=== PATIENT | female | born 1980 | race American Indian/Alaskan Native ===

== ENCOUNTER 2017-03-15 14:21 | Inpatient (IN) | payer MEDICAID ==
[2017-03-15] MEDS ORDERED: Sodium Chloride 0.9% 1,000 ML IV STA (14:46)
[2017-03-15 14:59] LABS: VENOUS BLOOD GAS BASE EXCESS 0.7 mmol/L (0.0-2.0); VENOUS BLOOD GAS PCO2 40 mmHg (40-60); VENOUS BLOOD PH 7.41 (7.32-7.43)
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
[2017-03-15 15:22] LABS: BASO # 0.1 K/uL (0.0-0.2); BASO % 1.2 % (0.0-2.0); EOS # 0.2 K/uL (0.0-0.7); EOS % 2.4 % (0.0-4.0); HEMATOCRIT 39.1 % (34.0-47.0); LYMPH # 2.9 K/uL (1.0-4.3); LYMPH % 30.1 % (20.0-40.0); MEAN CELL VOLUME 74.5 fl (81.0-99.0); MEAN CORPUSCULAR HEMOGLOBIN 23.8 pg (27.0-31.0); MEAN PLATELET VOLUME 10.1 fl (7.2-11.7); MONO # 0.6 K/uL (0.0-0.8); MONO % 6.2 % (0.0-10.0); NEUT # 5.8 K/uL (1.8-7.0); NEUT % 60.1 % (50.0-75.0); NRBC % 0.1 % (0.0-0.0); RED CELL DISTRIBUTION WIDTH 15.5 % (11.5-14.5); WHITE BLOOD COUNT 9.7 K/uL (4.8-10.8)
[2017-03-15 15:33] LABS: ALB/GLOB RATIO 1.5 (1.0-2.1); ALCOHOL SERUM < 10 mg/dl (0-10); ALKALINE PHOSPHATASE 68 U/L (38-126); ALT/SGPT 33 U/L (9-52); AST/SGOT 19 U/L (14-36); BILIRUBIN,TOTAL 0.7 mg/dl (0.2-1.3); BLOOD UREA NITROGEN 10 mg/dl (7-17); CALCIUM 9.3 mg/dL (8.4-10.2); CARBON DIOXIDE 23 mmol/L (22-30); CHLORIDE 106 mmol/L (98-107); GFR AFRICAN-AMERICAN > 60; GLUCOSE,RANDOM 154 mg/dL (65-105); SODIUM 142 mmol/l (132-148); TOTAL PROTEIN 7.4 G/DL (6.3-8.2)
--- NOTE | 2017-03-15 15:36 | CT ---
PROCEDURE: CT brain 03/15/2017. HISTORY: r/o ICH COMPARISON: None available. TECHNIQUE: Axial computed tomography images were obtained through the head/brain without intravenous contrast. Radiation dose: Total exam DLP = 1313.31 mGy-cm. This CT exam was performed using one or more of the following dose reduction techniques: Automated exposure control, adjustment of the mA and/or kV according to patient size, and/or use of iterative reconstruction technique. FINDINGS: HEMORRHAGE: No acute parenchymal, subarachnoid or extra-axial hemorrhage. BRAIN: No evidence of large acute infarct. No focal areas of abnormal attenuation seen within the substance of the brain. Ventricular and sulcal size are within range of normal this patient's stated age. VENTRICLES: No evidence of obstructive hydrocephalus. CALVARIUM: There are no acute calvarial fractures. PARANASAL SINUSES: Mild mucosal thickening right maxillary sinus with minimal mucosal thickening few ethmoid air cells and right chamber sphenoid sinus. MASTOID AIR CELLS: Unremarkable as visualized. No inflammatory changes. OTHER FINDINGS: None. IMPRESSION: No acute intracranial hemorrhage.
[2017-03-15 15:40] LABS: POTASSIUM 3.6 MMOL/L (3.6-5.0)
--- NOTE | 2017-03-15 15:50 | RAD ---
HISTORY: SOB COMPARISON: No prior. FINDINGS: LUNGS: Poor inspiration with low lung volumes, crowded bronchovascular markings and mild bibasilar atelectasis. PLEURA: No significant pleural effusion identified, no pneumothorax apparent. CARDIOVASCULAR: Heart size appears upper limits of normal in size. OSSEOUS STRUCTURES: No significant abnormalities. VISUALIZED UPPER ABDOMEN: Normal. OTHER FINDINGS: None. IMPRESSION: Poor inspiration with low lung volumes, crowded bronchovascular markings and mild bibasilar atelectasis.
[2017-03-15 16:12] LABS: THYROID STIMULATING HORMONE 1.94 mIU/ML (0.46-4.68)
[2017-03-15] MEDS ORDERED: Labetalol 5 mg/ml Inj 20ML IVP STA (16:43)
[2017-03-15] MEDS ORDERED: Sodium Chloride 0.45% 1,000 ML IV SCH (17:45)
[2017-03-15] MEDS ORDERED: NIFEdipine 60 mg ER Tab PO STA (18:51)
[2017-03-16] MEDS: Pneumococcal 23-Valent Vaccine IM ONE ×2 (01:17→01:21)
[2017-03-16 07:36] LABS: ALB/GLOB RATIO 1.4 (1.0-2.1); ALKALINE PHOSPHATASE 64 U/L (38-126); ALT/SGPT 27 U/L (9-52); AST/SGOT 16 U/L (14-36); BILIRUBIN,TOTAL 0.5 mg/dl (0.2-1.3); BLOOD UREA NITROGEN 8 mg/dl (7-17); CALCIUM 9.2 mg/dL (8.4-10.2); CARBON DIOXIDE 24 mmol/L (22-30); CHLORIDE 105 mmol/L (98-107); CHOLESTEROL 158 mg/dL (0-199); GFR AFRICAN-AMERICAN > 60; GLUCOSE,RANDOM 172 mg/dL (65-105); POTASSIUM 3.5 MMOL/L (3.6-5.0); SODIUM 139 mmol/l (132-148); TOTAL PROTEIN 6.7 G/DL (6.3-8.2)
[2017-03-16 08:04] LABS: THYROID STIMULATING HORMONE 1.85 mIU/ML (0.46-4.68)
[2017-03-16] MEDS ORDERED: NIFEdipine 90 mg ER Tab PO SCH ×2 (09:00)
[2017-03-16] MEDS ORDERED: NIFEdipine 60 mg ER Tab PO SCH (09:00)
--- NOTE | 2017-03-16 17:09 | CARD ---
APPROVED REPORT EXAM: Two-dimensional and M-mode echocardiogram with Doppler and color Doppler. Other Information Quality : AverageRhythm : NSR Technically limited study due to body habitus. INDICATION Hypertension/HCVD 2D DIMENSIONS IVSd1.11 (0.7-1.1cm)LVDd5.04 (3.9-5.9cm) LVOT Diameter2.12 (1.8-2.4cm)PWd1.20 (0.7-1.1cm) IVSs1.88 (0.8-1.2cm)LVDs3.56 (2.5-4.0cm) FS (%) 29.5 %PWs1.72 (0.8-1.2cm) LVEF (%)55.0 (>50%) M-Mode DIMENSIONS Left Atrium (MM)4.31 (2.5-4.0cm)IVSd2.03 (0.7-1.1cm) Aortic Root2.94 (2.2-3.7cm)LVDd4.63 (4.0-5.6cm) Aortic Cusp Exc.2.06 (1.5-2.0cm)PWd1.69 (0.7-1.1cm) IVSs2.38 cmFS (%) 41 % LVDs2.75 (2.0-3.8cm)PWs2.41 cm Mitral Valve MV E Wppfonxc98.5cm/sMV DECEL [id number] A Fmcttprn86.6cm/s MV CXC50xgH/A ratio1.2MVA (PHT)2.36cm2 TDI Lateral E' Peak V8.80cm/sMedial E' Peak V5.95cm/sE/Lateral E'6.4 E/Medial E'9.5 Pulmonary Valve PV Peak Nsvsyuyp963.6cm/s LEFT VENTRICLE The left ventricle is normal size. There is mild concentric left ventricular hypertrophy. The left ventricular function is normal. The left ventricular ejection fraction is within the normal range. There is normal LV segmental wall motion. The left ventricular diastolic function is normal. RIGHT VENTRICLE The right ventricle is normal size. There is normal right ventricular wall thickness. The right ventricular systolic function is normal. ATRIA The left atrium is borderline dilated. The right atrium size is normal. AORTIC VALVE The aortic valve is not well visualized. No aortic regurgitation is present. There is no aortic valvular stenosis. MITRAL VALVE The mitral valve is mildly thickened. There is no mitral valve stenosis. There is no mitral valve regurgitation noted. TRICUSPID VALVE The tricuspid valve is normal in structure and function. There is no tricuspid valve regurgitation noted. PULMONIC VALVE The pulmonary valve is normal in structure and function. There is no pulmonic valvular regurgitation. GREAT VESSELS The aortic root is normal in size. The IVC was not visualized. PERICARDIAL EFFUSION The pericardium appears normal. <Conclusion> The left ventricle is normal size. There is mild concentric left ventricular hypertrophy. The left ventricular function is normal. The left ventricular ejection fraction is within the normal range. There is normal LV segmental wall motion. The left ventricular diastolic function is normal.
--- NOTE | 2017-03-16 21:11 | CARD ---
APPROVED REPORT EKG Measurement Heart [id number] <Conclusion> Normal sinus rhythm Biatrial enlargement Left ventricular hypertrophy Nonspecific T wave abnormality Prolonged QT Abnormal ECG
[2017-03-16] MEDS ORDERED: Potassium Chloride 20 mEq ER Tab PO ONE (21:26)
[2017-03-17 00:17] VITALS: RESP 18; O2SAT 97
--- NOTE | 2017-03-17 06:25 | HP ---
HISTORY OF PRESENT ILLNESS: This is a 36-year-old female with no significant past medical history, presented to emergency room on the day of admission with complaints of dizziness, headache and generalized weakness. The patient was evaluated in the emergency room and she was found to have elevated blood pressure in the range of 180/110. The patient was being given multiple anti-hypertensive medications in the emergency room and she also had a CAT scan of the head that did not reveal any significant abnormality. The patient is a poor historian and stated she currently lives [place] and she recently moved from [place]. PAST MEDICAL HISTORY: None significant. FAMILY HISTORY: Noncontributory. SOCIAL HISTORY: The patient is a smoker but denies ETOH or substance abuse. REVIEW OF SYSTEMS: Other review of systems is negative. ALLERGIES: NO KNOWN ALLERGIES. MEDICATIONS: None. PHYSICAL EXAMINATION GENERAL: The patient is comfortable at the time of this examination. VITAL SIGNS: Blood pressure in the range of 110/70 after the patient was already treated, pulse of 70, temperature 98.2, respiratory rate 18. HEENT: Pupils equal, reactive to light. Normal appearing mucosa of the conjunctivae, oropharynx, and nasal membrane mucosa. NECK: Supple. No JVD. No carotid bruit. No lymph node. No thyromegaly. CHEST AND LUNGS: Bilateral symmetrical expansion. Good air exchange. No rales. No rhonchi. CARDIOVASCULAR: PMI not localized. S1 and S2. No additional sounds. ABDOMEN: Normoactive bowel sounds. No tenderness. No organomegaly. No masses. EXTREMITIES: No cyanosis, no clubbing, no edema. CENTRAL NERVOUS SYSTEM: Alert, awake, and oriented x3. No neurological deficits could be appreciated. IMPRESSION: 1. Hypertensive urgency. 2. Hypokalemia. PLAN: We will do echocardiogram and give patient Nifedipine XL 60 mg and clonidine 0.2 mg every 8 hours with parameters. Monitor electrolytes. We will also do blood work for lipid profile and the thyroid function test. Lei Waddell MD
[2017-03-17] MEDS ORDERED: NIFEdipine 30 mg ER Tab PO SCH ×2 (09:00)
[2017-03-17 12:13] VITALS: BP 132/72; PULSE 70; TEMP 98.2
--- NOTE | 2017-03-18 04:01 | DS ---
REASON FOR ADMISSION: This is a 36-year-old female, who was admitted for uncontrolled hypertension. COURSE OF HOSPITALIZATION: The patient was admitted to telemetry floor, and she was started on antihypertensive medications, both nifedipine and clonidine. The patient's blood pressure was well controlled, and she was discharged home on Procardia 30 mg daily as well as clonidine 0.1 mg q. 8 hours, and to followup with primary care physician. FINAL DIAGNOSES: 1. Uncontrolled hypertension. 2. Morbid obesity. The patient was counseled for diet and exercise and to follow up with primary care physician and to take antihypertensive medications. Lei Waddell MD
--- NOTE | 2017-03-19 09:25 | PQF BMI ---
This form is a permanent part of the medical record 03/19/17 Dr. Waddell, EMR has the patient listed as being 5' 9" , weighing 300 pounds with a BMI of 44.3. Documentation of Morbid Obesity. Would you please document the BMI. Clarification of your documentation is requested to better reflect the severity of illness and intensity of treatment of your patient. Indicators present [x] Documented BMI>40 [] Nutritional/Home Extension Agent consults [] 100 pounds or more over ideal body weight [x] Documented BMI / HT & WT: 5'9", weight 300 pounds, BMI 44.3 [] Other : [] Location in the medical record that reflects the above clinical findings: [] Other Treatment Provided: [x] Counseled for diet and exercise by MD PHYSICIAN'S RESPONSE Based on your medical judgment of the clinical indicators outlined above, please define the following: [] Morbid obesity with a BMI of 44.3 [] Morbid obesity with a BMI of PLEASE SPECIFY [] Other [] [] If unable to determine, please check the box, sign and date. Present On Admission (POA) Indicator: [] Present at the time of admission [] Not present at the time of admission [] Clinically Undetermined In responding to this query, please exercise your independent professional judgment. The fact that a question is asked does not imply that any particular answer is desired or expected. Thank you for your clarification on this documentation. If you have any questions please call:[phone] * Thank you, Val Beck RN CDMP MTDD
== END 2017-03-17 15:14 | disposition home or self-care (01) | DRG 134 ==
LOC: H.ER 14:21 → H.ERHOLD 17:07 → H.TEL 19:55 → OBSVTOIN 03-16 19:22
PROVIDERS: ADMIT Internal Medicine; ATTEND Internal Medicine
DX: I16.0 Hypertensive urgency (principal); Z68.41 Body mass index [BMI] 40.0-44.9, adult; E87.6 Hypokalemia; J98.11 Atelectasis; I10 Essential (primary) hypertension; E66.01 Morbid (severe) obesity due to excess calories; F17.210 Nicotine dependence, cigarettes, uncomplicated; Z79.82 Long term (current) use of aspirin; Z86.73 Personal history of transient ischemic attack (TIA), and cerebral infarction without residual deficits; R00.0 Tachycardia, unspecified

== ENCOUNTER 2017-05-16 20:09 | Emergency (ER) | payer MEDICAID ==
[2017-05-16 20:39] VITALS: BP 151/82; PULSE 98; RESP 18; TEMP 98; O2SAT 99
--- NOTE | 2017-05-16 21:07 | ED PDOC ---
HPI: General Adult Time Seen by Provider: 05/16/17 20:45 Chief Complaint (Nursing): Med Refill Chief Complaint (Provider): Med Refill History Per: Patient History/Exam Limitations: no limitations Onset/Duration Of Symptoms: Days (x3) Current Symptoms Are (Timing): Still Present Additional Complaint(s): Chey is a 36 y/o female who presents to the ED for med refill, states she ran out of Procardia 3 days ago. Complaining of mild headache. Blood pressure here is normal. PMD: [facility] Past Medical History Reviewed: Historical Data, Nursing Documentation, Vital Signs Vital Signs: Last Vital Signs Temp 98 F 05/16/17 20:36 Pulse 98 H 05/16/17 20:36 Resp 18 05/16/17 20:36 BP 151/82 H 05/16/17 20:36 Pulse Ox 99 05/16/17 20:36 - Medical History PMH: No Chronic Diseases Denies: HIV, Hyperthyroidism, Migraine, Chronic Kidney Disease - Surgical History Surgical History: No Surg Hx - Family History Family History: States: Unknown Family Hx - Social History Current smoker - smoking cessation education provided: Yes (Light) Alcohol: None Drugs: Denies - Home Medications Home Medications: Ambulatory Orders Medication Instructions Recorded Acetaminophen [Tylenol 325mg tab] 650 mg PO Q6 PRN tab 03/17/17 NIFEdipine ER [Procardia XL] 30 mg PO DAILY #30 ter 03/17/17 cloNIDine [Catapres] 0.1 mg PO Q8 #90 tab 03/17/17 NIFEdipine ER [Procardia XL] 30 mg PO DAILY #15 tab 05/16/17 - Allergies Allergies/Adverse Reactions: Allergies Allergy/AdvReac Type Severity Reaction Status Date / Time No Known Allergies Allergy Verified 03/15/17 14:39 Review of Systems ROS Statement: Except As Marked, All Systems Reviewed And Found Negative Neurological: Positive for: Headache (mild). Negative for: Dizziness Physical Exam - Reviewed Nursing Documentation Reviewed: Yes Vital Signs Reviewed: Yes - Physical Exam Appears: Positive for: Non-toxic, No Acute Distress Head Exam: Positive for: ATRAUMATIC, NORMAL INSPECTION, NORMOCEPHALIC Skin: Positive for: Normal Color, Warm, Dry Eye Exam: Positive for: EOMI, Normal appearance, PERRL Neck: Positive for: Normal, Supple Neurologic/Psych: Positive for: Alert, Oriented - ECG O2 Sat by Pulse Oximetry: 99 (RA) Pulse Ox Interpretation: Normal Medical Decision Making Medical Decision Making: Time: 20:54 Clinical Impression: Encounter for med refill Patient medically stable for discharge. Given Rx for Procardia. Patient to follow up with PMD. Return if symptoms persist or worsen. Scribe Attestation: Documented by Rox Nguyen, acting as a scribe for Dianna Boles PA-C Provider Scribe Attestation: All medical record entries made by the Scribe were at my direction and personally dictated by me. I have reviewed the chart and agree that the record accurately reflects my personal performance of the history, physical exam, medical decision making, and the department course for this patient. I have also personally directed, reviewed, and agree with the discharge instructions and disposition. Disposition - Clinical Impression Clinical Impression: Medication refill - Patient ED Disposition Is Patient to be Admitted: No Counseled Patient/Family Regarding: Need For Followup, Rx Given - Disposition Disposition: Routine/Home Disposition Time: 20:54 Condition: FAIR Prescriptions: NIFEdipine ER [Procardia XL] 30 mg PO DAILY #15 tab Instructions: Nifedipine (By mouth), Hypertension (ED) Forms: [employer] (R[place]an)
== END 2017-05-16 21:37 | disposition home or self-care (01) ==
LOC: H.ER 20:09
DX: Z76.0 Encounter for issue of repeat prescription (principal)

== ENCOUNTER 2017-06-11 07:24 | Emergency (ER) | payer MEDICAID ==
[2017-06-11 07:45] VITALS: RESP 18; TEMP 97; O2SAT 99
--- NOTE | 2017-06-11 08:33 | ED PDOC ---
HPI: Chest Pain Time Seen by Provider: 06/11/17 07:44 Chief Complaint (Nursing): Upper Extremity Problem/Injury Chief Complaint (Provider): Left sided chest pain History Per: Patient History/Exam Limitations: no limitations Onset/Duration Of Symptoms: Days (x1) Current Symptoms Are (Timing): Still Present Pain Scale Rating Of: 8 Associated Symptoms: denies: Nausea Additional Complaint(s): Chey Reyes is a 36 year old female, with no past medical history, who presents to the emergency department complaining of a worsening left sided chest pain onset since yesterday. Patient states she was at work yesterday when the pain began. She took Tylenol with no relief of symptoms. She denies any fever, chills, cough, nausea, vomit or diarrhea. No further medical complaints. PMD: None provided. Past Medical History Reviewed: Historical Data, Nursing Documentation, Vital Signs Vital Signs: Last Vital Signs Temp 97 F L 06/11/17 07:42 Pulse 99 H 06/11/17 14:04 Resp 18 06/11/17 07:42 BP 169/111 H 06/11/17 07:42 Pulse Ox 99 06/11/17 14:04 - Medical History PMH: Denies: HIV, Hyperthyroidism, Migraine, Chronic Kidney Disease - Family History Family History: States: Unknown Family Hx - Social History Current smoker - smoking cessation education provided: Yes (light smoker <10 cigarettes daily) Alcohol: None Drugs: Denies - Home Medications Home Medications: Ambulatory Orders Medication Instructions Recorded Acetaminophen [Tylenol 325mg tab] 650 mg PO Q6 PRN tab 03/17/17 NIFEdipine ER [Procardia XL] 30 mg PO DAILY #30 ter 03/17/17 cloNIDine [Catapres] 0.1 mg PO Q8 #90 tab 03/17/17 NIFEdipine ER [Procardia XL] 30 mg PO DAILY #15 tab 05/16/17 Azithromycin [Zithromax] 250 mg PO DAILY #6 tab 06/11/17 - Allergies Allergies/Adverse Reactions: Allergies Allergy/AdvReac Type Severity Reaction Status Date / Time No Known Allergies Allergy Verified 03/15/17 14:39 Review of Systems ROS Statement: Except As Marked, All Systems Reviewed And Found Negative Constitutional: Negative for: Fever, Chills Cardiovascular: Positive for: Chest Pain (left sided) Respiratory: Negative for: Cough Gastrointestinal: Negative for: Nausea, Vomiting, Diarrhea Physical Exam - Reviewed Nursing Documentation Reviewed: Yes Vital Signs Reviewed: Yes - Physical Exam Appears: Positive for: Well, Non-toxic, No Acute Distress Head Exam: Positive for: ATRAUMATIC, NORMAL INSPECTION, NORMOCEPHALIC Skin: Positive for: Normal Color, Warm, Dry Eye Exam: Positive for: EOMI, Normal appearance, PERRL Neck: Positive for: Normal, Painless ROM, Supple Cardiovascular/Chest: Positive for: Regular Rate, Rhythm. Negative for: Murmur Respiratory: Positive for: Normal Breath Sounds. Negative for: Respiratory Distress Gastrointestinal/Abdominal: Positive for: Normal Exam, Bowel Sounds, Soft. Negative for: Tenderness, Guarding, Rebound Back: Positive for: Normal Inspection. Negative for: L CVA Tenderness, R CVA Tenderness Extremity: Positive for: Normal ROM. Negative for: Deformity, Swelling Neurologic/Psych: Positive for: Alert, Oriented. Negative for: Motor/Sensory Deficits - Laboratory Results Result Diagrams: 06/11/17 08:43 06/11/17 08:43 - ECG ECG Rhythm: Positive for: Sinus Rhythm (normal) Interpretation Of ECG: Left atrial enlargement Rate: 99 O2 Sat by Pulse Oximetry: 99 (RA) Pulse Ox Interpretation: Normal Medical Decision Making Medical Decision Making: Initial Impression: Chest pain Initial Plan: --Comp metabolic Panel --Troponin I --CBC w/ differential --Chest portable [RAD] --reevaluation 1028 Chest x-ray FINDINGS: Examination limited by habitus. LUNGS: Mild interstitial prominence possibly chronic however mild infection or edema cannot be entirely excluded. Correlate clinically. No focal consolidation. Please note that chest x-ray has limited sensitivity for the detection of pulmonary masses. PLEURA: No significant pleural effusion identified. No definite pneumothorax . CARDIOVASCULAR: Heart size appears top normal. OSSEOUS STRUCTURES: No acute osseous abnormality identified. VISUALIZED UPPER ABDOMEN: Unremarkable. OTHER FINDINGS: None. IMPRESSION: Mild interstitial prominence possibly chronic however mild infection or edema cannot be entirely excluded. Correlate clinically. 1350 -Upon provider evaluation patient is medically stable, and requires no further treatment in the ED at this time. Patient will be discharged home. Counseling was provided and all questions were answered regarding diagnosis and need for follow up. There is agreement to discharge plan. Return if symptoms persist or worsen. Scribe Attestation: Documented by Shahram Kaba, acting as a scribe for Bo Olvera MD Provider Scribe Attestation: All medical record entries made by the Scribe were at my direction and personally dictated by me. I have reviewed the chart and agree that the record accurately reflects my personal performance of the history, physical exam, medical decision making, and the department course for this patient. I have also personally directed, reviewed, and agree with the discharge instructions and disposition. Disposition - Clinical Impression Clinical Impression: Chest pain - Disposition Referrals: [facility] [Outside] [facility] [Outside] Disposition Time: 13:50 Condition: IMPROVED Additional Instructions: follow up with your primary doctor in 1- 2 days return to the ED with any worsening or concerning symptoms Prescriptions: Azithromycin [Zithromax] 250 mg PO DAILY #6 tab Instructions: Costochondritis (ED) Forms: [employer] (Cameroonian)
[2017-06-11 08:52] LABS: BASO # 0.2 K/uL (0.0-0.2); BASO % 1.4 % (0.0-2.0); EOS # 0.2 K/uL (0.0-0.7); EOS % 1.8 % (0.0-4.0); HEMATOCRIT 39.9 % (34.0-47.0); LYMPH # 3.2 K/uL (1.0-4.3); LYMPH % 25.7 % (20.0-40.0); MEAN CELL VOLUME 75.5 fl (81.0-99.0); MEAN CORPUSCULAR HEMOGLOBIN 23.9 pg (27.0-31.0); MEAN CORPUSCULAR HGB CONC 31.6 g/dL (33.0-37.0); MEAN PLATELET VOLUME 10.4 fl (7.2-11.7); MONO # 0.7 K/uL (0.0-0.8); MONO % 5.5 % (0.0-10.0); NEUT # 8.3 K/uL (1.8-7.0); NEUT % 65.6 % (50.0-75.0); NRBC % 0.1 % (0.0-0.0); RED CELL DISTRIBUTION WIDTH 16.1 % (11.5-14.5); WHITE BLOOD COUNT 12.6 K/uL (4.8-10.8)
[2017-06-11 09:00] LABS: CALCIUM 9.1 mg/dL (8.4-10.2); CARBON DIOXIDE 24 mmol/L (22-30); CHLORIDE 108 mmol/L (98-107); GFR AFRICAN-AMERICAN > 60; GLUCOSE,RANDOM 207 mg/dL (65-105); SODIUM 140 mmol/l (132-148)
[2017-06-11 09:05] LABS: ALB/GLOB RATIO 1.2 (1.0-2.1); ALKALINE PHOSPHATASE 63 U/L (38-126); ALT/SGPT 26 U/L (9-52); AST/SGOT 39 U/L (14-36); BILIRUBIN,TOTAL 0.8 mg/dl (0.2-1.3); BLOOD UREA NITROGEN 14 mg/dl (7-17); POTASSIUM 5.4 MMOL/L (3.6-5.0)
--- NOTE | 2017-06-11 10:30 | RAD ---
HISTORY: chest pain COMPARISON: Chest x-ray performed 03/15/17 TECHNIQUE: Chest, one view. FINDINGS: Examination limited by habitus. LUNGS: Mild interstitial prominence possibly chronic however mild infection or edema cannot be entirely excluded. Correlate clinically. No focal consolidation. Please note that chest x-ray has limited sensitivity for the detection of pulmonary masses. PLEURA: No significant pleural effusion identified. No definite pneumothorax . CARDIOVASCULAR: Heart size appears top normal. OSSEOUS STRUCTURES: No acute osseous abnormality identified. VISUALIZED UPPER ABDOMEN: Unremarkable. OTHER FINDINGS: None. IMPRESSION: Mild interstitial prominence possibly chronic however mild infection or edema cannot be entirely excluded. Correlate clinically.
[2017-06-11 15:39] VITALS: BP 149/92; PULSE 90
== END 2017-06-11 15:05 | disposition home or self-care (01) ==
LOC: H.ER 07:24
DX: R07.89 Other chest pain (principal)

== ENCOUNTER 2017-07-01 19:58 | Emergency (ER) | payer MEDICAID ==
[2017-07-01 21:07] VITALS: BP 143/73; PULSE 80; RESP 18; TEMP 98.1; O2SAT 98
--- NOTE | 2017-07-01 21:33 | ED PDOC ---
Lower Extremity Pain/Injury Time Seen by Provider: 07/01/17 21:15 Chief Complaint (Nursing): Hip Pain Chief Complaint (Provider): Right Hip Pain History Per: Patient History/Exam Limitations: no limitations Onset/Duration Of Symptoms: Days (x3) Current Symptoms Are (Timing): Still Present Additional Complaint(s): Chey Reyes is a 36 year old female that presents to the ED with a chief complaint of right hip pain that she has been experiencing for the past three days as a result of a fall. Patient reports that three days ago, she was shopping when she tripped and fell in the aisle. She states that she hit her head and does not recollect anything until she regained consciousness when she was with EMS, who brought her to [facility]. Patient reports that she had an X-Ray performed on her left hip, but not her right. She states that she has been taking Tylenol for her pain and that it has not been providing her any relief. Past Medical History Reviewed: Historical Data, Nursing Documentation, Vital Signs Vital Signs: Last Vital Signs Temp 98.1 F 07/01/17 21:05 Pulse 80 07/01/17 21:05 Resp 18 07/01/17 21:05 BP 143/73 07/01/17 21:05 Pulse Ox 98 07/01/17 21:05 - Medical History PMH: Denies: HIV, Hyperthyroidism, Migraine, Chronic Kidney Disease - Family History Family History: States: Unknown Family Hx - Home Medications Home Medications: Ambulatory Orders Medication Instructions Recorded Acetaminophen [Tylenol 325mg tab] 650 mg PO Q6 PRN tab 03/17/17 NIFEdipine ER [Procardia XL] 30 mg PO DAILY #30 ter 03/17/17 cloNIDine [Catapres] 0.1 mg PO Q8 #90 tab 03/17/17 NIFEdipine ER [Procardia XL] 30 mg PO DAILY #15 tab 05/16/17 Azithromycin [Zithromax] 250 mg PO DAILY #6 tab 06/11/17 Naproxen 1 tab PO Q12 PRN #14 tab 07/01/17 - Allergies Allergies/Adverse Reactions: Allergies Allergy/AdvReac Type Severity Reaction Status Date / Time No Known Allergies Allergy Verified 03/15/17 14:39 Review of Systems Musculoskeletal: Positive for: Leg Pain (right hip pain) Physical Exam - Reviewed Nursing Documentation Reviewed: Yes Vital Signs Reviewed: Yes - Physical Exam Appears: Positive for: Non-toxic, No Acute Distress (Patient is very sleepy during exam.) Head Exam: Positive for: ATRAUMATIC, NORMOCEPHALIC Skin: Positive for: Normal Color, Warm Eye Exam: Positive for: Normal appearance, EOMI, PERRL Back: Negative for: Normal Inspection (Mild paralumbar TTP) Extremity: Positive for: Other (TTP gluteal region. No ecchymosis noted.) Neurologic/Psych: Positive for: Alert, Oriented. Negative for: Motor/Sensory Deficits - ECG O2 Sat by Pulse Oximetry: 98 (RA) Pulse Ox Interpretation: Normal - Progress ED Course And Treament: XRY OF HIP: NEG FOR FX Medical Decision Making Medical Decision Making: Impression: Right Hip Pain Plan: * X-Ray Right Hip * Urine * Reevaluation Scribe Attestation: Documented by Anne Miramontes, acting as a scribe for Dianna Boles PA-C. Provider Scribe Attestation: All medical record entries made by the Scribe were at my direction and personally dictated by me. I have reviewed the chart and agree that the record accurately reflects my personal performance of the history, physical exam, medical decision making, and the department course for this patient. I have also personally directed, reviewed, and agree with the discharge instructions and disposition. Disposition - Clinical Impression Clinical Impression: Hip pain - Patient ED Disposition Is Patient to be Admitted: No - Disposition Referrals: [facility] [Outside] Disposition: Routine/Home Disposition Time: 23:39 Condition: FAIR Prescriptions: Naproxen 1 tab PO Q12 PRN #14 tab PRN Reason: Pain, Moderate (4-7) Instructions: Contusion in Adults (ED), Acute Low Back Pain (GEN) Forms: [facility] (Divehi)
--- NOTE | 2017-07-02 11:40 | RAD ---
PROCEDURE: Right Hip Radiographs. HISTORY: Fall COMPARISON: None. FINDINGS: BONES: The pelvic ring is intact. There is an apparent longitudinal lucency in the lateral right intertrochanteric region. There is no bone destruction. Bone alignment and mineralization are normal. JOINTS: The hip joint spaces are preserved. There is mild degenerative osteoarthrosis in the right sacroiliac joint. There is moderate osteitis pubis. SOFT TISSUES: Normal. OTHER FINDINGS: None. IMPRESSION: No acute displaced fracture or dislocation. Apparent longitudinal lucency in the lateral right intertrochanteric region is nonspecific and could be artifactual however nondisplaced fracture cannot be entirely excluded. Please note occult fractures cannot be excluded on plain radiographs. If there is a persistent clinical concern, an MRI of the hip may be performed for further evaluation.
== END 2017-07-01 23:40 | disposition home or self-care (01) ==
LOC: H.ER 19:58
DX: M25.551 Pain in right hip (principal); W18.30XA Fall on same level, unspecified, initial encounter

== ENCOUNTER 2017-07-21 13:45 | Emergency (ER) | payer MEDICAID ==
[2017-07-21] MEDS ORDERED: Sodium Chloride 0.9% 1,000 ML IV STA (14:37)
--- NOTE | 2017-07-21 14:57 | ED PDOC ---
HPI: Headache Time Seen by Provider: 07/21/17 14:06 Chief Complaint (Nursing): Headache Chief Complaint (Provider): Headache History Per: Patient History/Exam Limitations: no limitations Onset/Duration Of Symptoms: Days (7 days ago), Intermittent Episodes Current Symptoms Are (Timing): Constant Additional Complaint(s): 36 y/o female with a history of hypertension, presents to the ED complaining of constant, intermittent headache, onset of 7 days. Patient states that she has been having headaches all her life, and is usually triggered when her blood pressure is high due to her history of hypertension. She describes the headache as pressure radiating throughout her entire head, and normally experiences some relief after taking Clonatin coupled with another type of high blood pressure medication, not directly specified. She presents today with a headache, onset of 1 hr ago after not be able to find the Clonatin and has been taking the other medication without relief, and notes that she is sensitive to light. PCP: Leif Rodriguez Past Medical History Reviewed: Historical Data, Nursing Documentation, Vital Signs Vital Signs: Last Vital Signs Temp 97.5 F L 07/21/17 13:54 Pulse 115 H 07/21/17 13:54 Resp 16 07/21/17 13:54 BP 189/112 H 07/21/17 13:54 Pulse Ox 100 07/21/17 13:54 - Medical History PMH: Diabetes, HTN Denies: HIV, Hyperthyroidism, Migraine, Chronic Kidney Disease - Surgical History Surgical History: No Surg Hx - Family History Family History: States: Unknown Family Hx - Social History Current smoker - smoking cessation education provided: Yes (10 cigarettes daily) Alcohol: None Drugs: Denies - Home Medications Home Medications: Ambulatory Orders Medication Instructions Recorded Acetaminophen [Tylenol 325mg tab] 650 mg PO Q6 PRN tab 03/17/17 NIFEdipine ER [Procardia XL] 30 mg PO DAILY #30 ter 03/17/17 NIFEdipine ER [Procardia XL] 30 mg PO DAILY #15 tab 05/16/17 Azithromycin [Zithromax] 250 mg PO DAILY #6 tab 06/11/17 Naproxen 1 tab PO Q12 PRN #14 tab 07/01/17 cloNIDine [Catapres] 0.1 mg PO Q8 #90 tab 07/21/17 - Allergies Allergies/Adverse Reactions: Allergies Allergy/AdvReac Type Severity Reaction Status Date / Time Seafood Allergy SHORTNESS Uncoded 07/21/17 13:55 OF BREATH Review of Systems ROS Statement: Except As Marked, All Systems Reviewed And Found Negative Neurological: Positive for: Headache, Other (sensitive to light) Physical Exam - Reviewed Nursing Documentation Reviewed: Yes Vital Signs Reviewed: Yes - Physical Exam Appears: Positive for: Non-toxic, No Acute Distress Head Exam: Positive for: ATRAUMATIC, NORMOCEPHALIC Skin: Positive for: Normal Color, Warm Eye Exam: Positive for: Normal appearance, EOMI, PERRL ENT: Positive for: Normal ENT Inspection Neck: Positive for: Normal, Painless ROM, Supple Cardiovascular/Chest: Positive for: Regular Rate, Rhythm. Negative for: Murmur Respiratory: Positive for: Normal Breath Sounds. Negative for: Respiratory Distress Gastrointestinal/Abdominal: Positive for: Normal Exam, Soft. Negative for: Tenderness Back: Positive for: Normal Inspection Extremity: Positive for: Normal ROM. Negative for: Pedal Edema, Deformity Neurologic/Psych: Positive for: Alert, Oriented. Negative for: Motor/Sensory Deficits - Laboratory Results Result Diagrams: 07/21/17 15:15 07/21/17 15:15 - ECG O2 Sat by Pulse Oximetry: 100 (RA) Pulse Ox Interpretation: Normal - Progress Re-evaluation Time: 18:56 Condition: Re-examined, Improved Medical Decision Making Medical Decision Making: Time: 14:37 Impression: --Headache in setting of hypertension Differential: --Hypertensive urgent, intracranial bleeding due to hypertension Plan: --CT Head W/O Contrast --Labs --Drug Screen, Urine --ED Urine Dip --Ed Urine --Clonidine 0.2mg PO --Toradol 30mg IVP --Metoclopramide 10mg IVP --IV Fluids --Reassess Time: 17:28 CT Head Findings: HEMORRHAGE: No intracranial hemorrhage. BRAIN: No mass effect or edema. No cortical atrophy is seen. No intracranial hemorrhage is noted. No extra-axial fluid collection is seen. Ventricles are normal in size and midline. No appreciable decreased density to suggest recent infarct is noted. There is a stable small a medial left temporal lobe very vascular space. Posterior fossa is unremarkable. Pituitary gland is normal in size. No tonsillar ectopia is seen. VENTRICLES: Unremarkable. No hydrocephalus. CALVARIUM: Unremarkable. PARANASAL SINUSES: Since the prior examination there has been interval increase in mucosal inflammatory changes in the right maxillary sinus. There appears to be obstruction of the right ostiomeatal complex on the coronal images. Mild mucosal changes are seen in the sinuses elsewhere. MASTOID AIR CELLS: Unremarkable as visualized. No inflammatory changes. OTHER FINDINGS: None. IMPRESSION: No evidence of recent infarct or intracranial hemorrhage. Moderate right maxillary sinusitis. No other significant significant interval change from prior study. Time: 18:56 --Upon provider evaluation patient's condition is improved and patient is feeling much better. Patient will be discharged with Rx for Catapres. Counseling was provided and all questions were answered regarding diagnosis and need for follow up with PMD. There is agreement to discharge plan. Return if symptoms persist or worsen. Scribe Attestation: Documented by Sonny Becerra and Ralph Huynh acting as a scribe for Mala Matthew MD. Disposition - Clinical Impression Clinical Impression: Headache - Patient ED Disposition Is Patient to be Admitted: No Counseled Patient/Family Regarding: Studies Performed, Diagnosis, Need For Followup, Rx Given - Disposition Referrals: [facility] [Outside] Disposition: Routine/Home Disposition Time: 18:56 Condition: GOOD Additional Instructions: Return for worsening. Follow up with your PCP in 2-3 days. Prescriptions: cloNIDine [Catapres] 0.1 mg PO Q8 #90 tab Instructions: Hypertension (ED), General Headache (ED)
[2017-07-21 15:37] LABS: BASO # 0.2 K/uL (0.0-0.2); BASO % 1.5 % (0.0-2.0); EOS # 0.2 K/uL (0.0-0.7); EOS % 1.9 % (0.0-4.0); HEMOGLOBIN 12.3 g/dL (12.0-16.0); LYMPH # 2.4 K/uL (1.0-4.3); MEAN CELL VOLUME 76.2 fl (81.0-99.0); MEAN CORPUSCULAR HEMOGLOBIN 23.9 pg (27.0-31.0); MEAN CORPUSCULAR HGB CONC 31.4 g/dL (33.0-37.0); MEAN PLATELET VOLUME 10.1 fl (7.2-11.7); MONO # 0.6 K/uL (0.0-0.8); MONO % 5.3 % (0.0-10.0); NEUT # 8.5 K/uL (1.8-7.0); NEUT % 71.3 % (50.0-75.0); NRBC % 0.2 % (0.0-0.0); RBC 5.15 Mil/uL (3.80-5.20); RED CELL DISTRIBUTION WIDTH 15.2 % (11.5-14.5); WHITE BLOOD COUNT 11.9 K/uL (4.8-10.8)
[2017-07-21 15:43] LABS: CALCIUM 8.9 mg/dL (8.4-10.2); GFR AFRICAN-AMERICAN > 60; GFR NON-AFRICAN AMERICAN > 60
[2017-07-21 15:46] LABS: BARBITURATES, UR NEGATIVE (NEGATIVE); BENZODIAZEPINES, UR NEGATIVE (NEGATIVE); OPIATES, UR NEGATIVE (NEGATIVE); PHENCYCLIDINE, UR NEGATIVE (NEGATIVE)
[2017-07-21 15:50] LABS: BLOOD UREA NITROGEN 8 mg/dl (7-17)
--- NOTE | 2017-07-21 17:30 | CT ---
PROCEDURE: CT HEAD WITHOUT CONTRAST. HISTORY: headache COMPARISON: 03/15/2017 TECHNIQUE: Axial computed tomography images were obtained through the head/brain without intravenous contrast. Radiation dose: Total exam DLP = 1603 mGy-cm. This CT exam was performed using one or more of the following dose reduction techniques: Automated exposure control, adjustment of the mA and/or kV according to patient size, and/or use of iterative reconstruction technique. FINDINGS: HEMORRHAGE: No intracranial hemorrhage. BRAIN: No mass effect or edema. No cortical atrophy is seen. No intracranial hemorrhage is noted. No extra-axial fluid collection is seen. Ventricles are normal in size and midline. No appreciable decreased density to suggest recent infarct is noted. There is a stable small a medial left temporal lobe very vascular space. Posterior fossa is unremarkable. Pituitary gland is normal in size. No tonsillar ectopia is seen. VENTRICLES: Unremarkable. No hydrocephalus. CALVARIUM: Unremarkable. PARANASAL SINUSES: Since the prior examination there has been interval increase in mucosal inflammatory changes in the right maxillary sinus. There appears to be obstruction of the right ostiomeatal complex on the coronal images. Mild mucosal changes are seen in the sinuses elsewhere. MASTOID AIR CELLS: Unremarkable as visualized. No inflammatory changes. OTHER FINDINGS: None. IMPRESSION: No evidence of recent infarct or intracranial hemorrhage. Moderate right maxillary sinusitis. No other significant significant interval change from prior study.
[2017-07-21 17:48] VITALS: BP 134/87; PULSE 87; RESP 18; TEMP 98.6
[2017-07-21 18:56] VITALS: O2SAT 100
== END 2017-07-21 19:08 | disposition home or self-care (01) ==
LOC: H.ER 13:45
DX: R51 Headache (principal); I10 Essential (primary) hypertension; E11.9 Type 2 diabetes mellitus without complications; J32.0 Chronic maxillary sinusitis
CPT/HCPCS: 70450; 80048; 80324; 80345; 80346; 80349; 80353; 80358; 80361; 81025; 83992; 85025; 96361; 96374; 96375; 99284; J1885; J2765; J7040

== ENCOUNTER 2017-08-03 08:41 | Emergency (ER) | payer MEDICAID ==
[2017-08-03 08:51] VITALS: BMI 38.0
[2017-08-03 08:52] VITALS: TEMP 98.6
--- NOTE | 2017-08-03 09:33 | ED PDOC ---
HPI: General Adult Time Seen by Provider: 08/03/17 09:13 Chief Complaint (Nursing): Chest Pain Chief Complaint (Provider): Dental Pain History Per: Patient History/Exam Limitations: no limitations Onset/Duration Of Symptoms: Days (3 days ago) Current Symptoms Are (Timing): Still Present Additional Complaint(s): 36 y/o female with a history of Hypertension and Diabetes presents to the ED with left sided dental pain that radiates to left ear, onset of 3 days. Patient states that she was seen by her dentist and was advised to be on antibiotics prior to dental extraction. She denies any fever or drainage to teeth. Past Medical History Reviewed: Historical Data, Nursing Documentation, Vital Signs Vital Signs: Last Vital Signs Temp 98.6 F 08/03/17 08:51 Pulse 85 08/03/17 08:51 Resp 17 08/03/17 08:51 BP 192/113 H 08/03/17 08:51 Pulse Ox 99 08/03/17 10:40 - Medical History PMH: Diabetes, Gastritis, HTN Denies: HIV, Hyperthyroidism, Migraine, Chronic Kidney Disease - Surgical History Surgical History: No Surg Hx - Family History Family History: States: Unknown Family Hx - Social History Current smoker - smoking cessation education provided: Yes (light ) SMOKER/PACKS PER DAY:: 10 (cigarettes daily) Alcohol: None Drugs: Denies - Home Medications Home Medications: Ambulatory Orders Medication Instructions Recorded Acetaminophen [Tylenol 325mg tab] 650 mg PO Q6 PRN tab 03/17/17 NIFEdipine ER [Procardia XL] 30 mg PO DAILY #30 ter 03/17/17 NIFEdipine ER [Procardia XL] 30 mg PO DAILY #15 tab 05/16/17 Azithromycin [Zithromax] 250 mg PO DAILY #6 tab 06/11/17 Naproxen 1 tab PO Q12 PRN #14 tab 07/01/17 cloNIDine [Catapres] 0.1 mg PO Q8 #90 tab 07/21/17 Clindamycin [Cleocin] 300 mg PO TID #30 cap 08/03/17 amLODIPine [Norvasc] 5 mg PO DAILY #30 tab 08/03/17 traMADol [Ultram] 50 mg PO Q8 #10 tab 08/03/17 - Allergies Allergies/Adverse Reactions: Allergies Allergy/AdvReac Type Severity Reaction Status Date / Time Seafood Allergy SHORTNESS Uncoded 08/03/17 09:01 OF BREATH Review of Systems ROS Statement: Except As Marked, All Systems Reviewed And Found Negative Constitutional: Negative for: Fever ENT: Positive for: Ear Pain, Other (dental pain, no drainage to teeth) Physical Exam - Reviewed Nursing Documentation Reviewed: Yes Vital Signs Reviewed: Yes - Physical Exam Appears: Positive for: Non-toxic, No Acute Distress Head Exam: Positive for: ATRAUMATIC Skin: Positive for: Normal Color, Warm Eye Exam: Positive for: Normal appearance ENT: Positive for: Normal ENT Inspection, Other (mouth: upper molar gums swollen , no fluctuance, no drainage) Neck: Positive for: Normal, Painless ROM, Supple Cardiovascular/Chest: Positive for: Regular Rate, Rhythm. Negative for: Murmur Respiratory: Positive for: Normal Breath Sounds. Negative for: Respiratory Distress Back: Positive for: Normal Inspection Extremity: Positive for: Normal ROM. Negative for: Pedal Edema, Deformity Neurologic/Psych: Positive for: Alert, Oriented. Negative for: Motor/Sensory Deficits - ECG O2 Sat by Pulse Oximetry: 99 (RA) Pulse Ox Interpretation: Normal Medical Decision Making Medical Decision Making: Time: --09:25 Impression: --left sided dental pain Plan: --Clonidine 0.1 mg PO --Tramadol 50mg PO Reassess -- Scribe Attestation: Documented by Sonny Becerra acting as a scribe for Juan Carlos Hernandez MD. Disposition - Clinical Impression Clinical Impression: Pain, dental, Hypertension - Patient ED Disposition Is Patient to be Admitted: No Counseled Patient/Family Regarding: Diagnosis, Need For Followup, Rx Given - Disposition Referrals: Flavio Rice DDS [Staff Provider] - [facility] [Outside] Disposition: Routine/Home Disposition Time: 10:37 Condition: FAIR Prescriptions: amLODIPine [Norvasc] 5 mg PO DAILY #30 tab Clindamycin [Cleocin] 300 mg PO TID #30 cap traMADol [Ultram] 50 mg PO Q8 #10 tab Instructions: Hypertension (ED), Toothache (ED) Forms: [employer] (Swazi)
[2017-08-03 11:10] VITALS: BP 147/83; PULSE 76; RESP 16; O2SAT 98
== END 2017-08-03 11:12 | disposition home or self-care (01) ==
LOC: H.ER 08:41
DX: K08.89 Other specified disorders of teeth and supporting structures (principal); E11.9 Type 2 diabetes mellitus without complications; F17.210 Nicotine dependence, cigarettes, uncomplicated; I10 Essential (primary) hypertension

== ENCOUNTER 2017-08-17 08:24 | Emergency (ER) | payer MEDICAID ==
[2017-08-17 08:25] VITALS: BMI 38.0
--- NOTE | 2017-08-17 08:56 | ED PDOC ---
HPI: General Adult Time Seen by Provider: 08/17/17 08:34 Chief Complaint (Nursing): Med Refill Chief Complaint (Provider): Med Refill History Per: Patient History/Exam Limitations: no limitations Additional Complaint(s): Chey Reyes, a 36 year old female patient presents to the Emergency Department for refill of Metaformin. Reports she took clonidine .1mg one day ago and Nifedipine 30mg. Also has a history of blood pressure. Denies chest pain , shortness of breath, fatigue, or polyuria. PMD: Non [facility] Provider Past Medical History Reviewed: Historical Data, Nursing Documentation, Vital Signs Vital Signs: Last Vital Signs Temp 97.7 F 08/17/17 08:29 Pulse 100 H 08/17/17 08:29 Resp 16 08/17/17 08:29 BP 182/108 H 08/17/17 08:29 Pulse Ox 100 08/17/17 09:03 - Medical History PMH: Diabetes, Gastritis, HTN Denies: HIV, Hyperthyroidism, Migraine, Chronic Kidney Disease - Family History Family History: States: Unknown Family Hx - Social History Current smoker - smoking cessation education provided: Yes - Home Medications Home Medications: Ambulatory Orders Medication Instructions Recorded Acetaminophen [Tylenol 325mg tab] 650 mg PO Q6 PRN tab 03/17/17 NIFEdipine ER [Procardia XL] 30 mg PO DAILY #30 ter 03/17/17 NIFEdipine ER [Procardia XL] 30 mg PO DAILY #15 tab 05/16/17 Azithromycin [Zithromax] 250 mg PO DAILY #6 tab 06/11/17 Naproxen 1 tab PO Q12 PRN #14 tab 07/01/17 cloNIDine [Catapres] 0.1 mg PO Q8 #90 tab 07/21/17 Clindamycin [Cleocin] 300 mg PO TID #30 cap 08/03/17 amLODIPine [Norvasc] 5 mg PO DAILY #30 tab 08/03/17 traMADol [Ultram] 50 mg PO Q8 #10 tab 08/03/17 - Allergies Allergies/Adverse Reactions: Allergies Allergy/AdvReac Type Severity Reaction Status Date / Time Seafood Allergy SHORTNESS Uncoded 08/03/17 09:01 OF BREATH Review of Systems ROS Statement: Except As Marked, All Systems Reviewed And Found Negative Constitutional: Negative for: Fever, Chills Cardiovascular: Negative for: Chest Pain Respiratory: Negative for: Cough, Shortness of Breath Genitourinary Female: Positive for: Other (no polyuria) Physical Exam - Reviewed Nursing Documentation Reviewed: Yes Vital Signs Reviewed: Yes - Physical Exam Appears: Positive for: Well, Non-toxic, No Acute Distress Head Exam: Positive for: ATRAUMATIC, NORMAL INSPECTION, NORMOCEPHALIC Skin: Positive for: Normal Color, Warm, Dry Eye Exam: Positive for: Normal appearance, EOMI, PERRL ENT: Positive for: Normal ENT Inspection Neck: Positive for: Normal, Painless ROM Cardiovascular/Chest: Positive for: Regular Rate, Rhythm. Negative for: Tachycardia Respiratory: Positive for: Normal Breath Sounds. Negative for: Respiratory Distress Gastrointestinal/Abdominal: Positive for: Normal Exam Back: Positive for: Normal Inspection Extremity: Positive for: Normal ROM. Negative for: Tenderness Neurologic/Psych: Positive for: Alert, Oriented (x3), Other (copperative) - ECG O2 Sat by Pulse Oximetry: 100 (RA) Pulse Ox Interpretation: Normal Medical Decision Making Medical Decision Making: Time: 8:44 Differential Diagnosis includes but is not limited to: Improvement for blood pressure with anticipated discharge Initial Plan: -- Metaformin 500 mg PO --Reevaluation Scribe Attestation: Documented by Marie Tineo, acting as a scribe for Shashank Reeves MD Provider Scribe Attestation: All medical record entries made by the Scribe were at my direction and personally dictated by me. I have reviewed the chart and agree that the record accurately reflects my personal performance of the history, physical exam, medical decision making, and the department course for this patient. I have also personally directed, reviewed, and agree with the discharge instructions and disposition. Disposition - Disposition Forms: [employer] (Danish)
[2017-08-17 09:16] VITALS: O2SAT 98
[2017-08-17 10:53] VITALS: BP 128/77; PULSE 80; RESP 19
[2017-08-17 10:54] VITALS: TEMP 98
== END 2017-08-17 10:54 | disposition home or self-care (01) ==
LOC: H.ER 08:24
DX: Z76.0 Encounter for issue of repeat prescription (principal); E11.9 Type 2 diabetes mellitus without complications; I10 Essential (primary) hypertension

== ENCOUNTER 2017-08-30 15:15 | Emergency (ER) | payer MEDICAID ==
[2017-08-30 15:15] VITALS: BMI 38.0
[2017-08-30] MEDS ORDERED: Sodium Chloride 0.9% 1,000 ML IV STA (16:07)
--- NOTE | 2017-08-30 16:09 | ED PDOC ---
Syncope/Near Syncope/Dizziness Time Seen by Provider: 08/30/17 15:46 Chief Complaint (Nursing): Dizziness/Lightheaded History Per: Patient Onset/Duration Of Symptoms: Hrs (2) Current Symptoms Are (Timing): Still Present Seizure Or Post-ictal Symptoms: None Severity: Mild Additional Complaint(s): Dizziness assoc with nausea x 2 hrs. Denies vomiting. No chest pain or palpitations. No LOC. Past Medical History Vital Signs: Last Vital Signs Temp 98.6 F 08/30/17 15:38 Pulse 86 08/30/17 15:38 Resp 20 08/30/17 15:38 BP 143/82 08/30/17 15:38 Pulse Ox 97 08/30/17 15:38 - Medical History PMH: Diabetes, Gastritis, HTN Denies: HIV, Hyperthyroidism, Migraine, Chronic Kidney Disease - Family History Family History: States: Unknown Family Hx - Home Medications Home Medications: Ambulatory Orders Medication Instructions Recorded Acetaminophen [Tylenol 325mg tab] 650 mg PO Q6 PRN tab 03/17/17 NIFEdipine ER [Procardia XL] 30 mg PO DAILY #30 ter 03/17/17 NIFEdipine ER [Procardia XL] 30 mg PO DAILY #15 tab 05/16/17 Azithromycin [Zithromax] 250 mg PO DAILY #6 tab 06/11/17 Naproxen 1 tab PO Q12 PRN #14 tab 07/01/17 cloNIDine [Catapres] 0.1 mg PO Q8 #90 tab 07/21/17 Clindamycin [Cleocin] 300 mg PO TID #30 cap 08/03/17 amLODIPine [Norvasc] 5 mg PO DAILY #30 tab 08/03/17 traMADol [Ultram] 50 mg PO Q8 #10 tab 08/03/17 metFORMIN [glucOPHAGE] 500 mg PO BID #30 tab 08/17/17 - Allergies Allergies/Adverse Reactions: Allergies Allergy/AdvReac Type Severity Reaction Status Date / Time Seafood Allergy SHORTNESS Uncoded 08/03/17 09:01 OF BREATH Review of Systems ROS Statement: Except As Marked, All Systems Reviewed And Found Negative Cardiovascular: Negative for: Chest Pain, Palpitations Gastrointestinal: Positive for: Nausea Neurological: Positive for: Dizziness Physical Exam - Reviewed Nursing Documentation Reviewed: Yes Vital Signs Reviewed: Yes - Physical Exam Appears: Positive for: Non-toxic, No Acute Distress Head Exam: Positive for: ATRAUMATIC, NORMAL INSPECTION, NORMOCEPHALIC Skin: Positive for: Normal Color, Warm, DRY Eye Exam: Positive for: EOMI, Normal appearance, PERRL ENT: Positive for: Normal ENT Inspection Neck: Positive for: Normal, Painless ROM Cardiovascular/Chest: Positive for: Regular Rate, Rhythm Respiratory: Positive for: CNT, Normal Breath Sounds Gastrointestinal/Abdominal: Positive for: Normal Exam, Bowel Sounds, Soft Back: Positive for: Normal Inspection Extremity: Positive for: Normal ROM Neurologic/Psych: Positive for: Alert, Oriented - Laboratory Results Result Diagrams: 08/30/17 16:46 08/30/17 16:46 - ECG O2 Sat by Pulse Oximetry: 97 Disposition - Clinical Impression Clinical Impression: Dizziness - Patient ED Disposition Is Patient to be Admitted: Transfer of Care - Disposition Disposition: Transfer of Care Disposition Time: 19:06 Condition: FAIR Forms: [facility] (Swedish) Patient Signed Over To: [place] Barron
[2017-08-30 16:50] LABS: BASO # 0.2 K/uL (0.0-0.2); BASO % 1.9 % (0.0-2.0); EOS # 0.2 K/uL (0.0-0.7); EOS % 1.5 % (0.0-4.0); HEMOGLOBIN 11.2 g/dL (12.0-16.0); LYMPH # 3.2 K/uL (1.0-4.3); MEAN CELL VOLUME 75.5 fl (81.0-99.0); MEAN CORPUSCULAR HEMOGLOBIN 23.7 pg (27.0-31.0); MEAN CORPUSCULAR HGB CONC 31.4 g/dL (33.0-37.0); MEAN PLATELET VOLUME 9.7 fl (7.2-11.7); MONO # 0.6 K/uL (0.0-0.8); MONO % 5.5 % (0.0-10.0); NEUT # 6.5 K/uL (1.8-7.0); NEUT % 61.1 % (50.0-75.0); NRBC % 0.1 % (0.0-0.0); RBC 4.73 Mil/uL (3.80-5.20); RED CELL DISTRIBUTION WIDTH 15.1 % (11.5-14.5); WHITE BLOOD COUNT 10.7 K/uL (4.8-10.8)
[2017-08-30 17:14] LABS: ALB/GLOB RATIO 1.3 (1.0-2.1); ALT/SGPT 33 U/L (9-52); AST/SGOT 29 U/L (14-36); BLOOD UREA NITROGEN 14 mg/dl (7-17); CALCIUM 8.9 mg/dL (8.4-10.2); GFR AFRICAN-AMERICAN > 60; GFR NON-AFRICAN AMERICAN > 60
[2017-08-30 19:28] VITALS: BP 132/68; PULSE 74; RESP 18; TEMP 97.9; O2SAT 99
--- NOTE | 2017-08-31 10:37 | CARD ---
APPROVED REPORT EKG Measurement Heart [id number] <Conclusion> Normal sinus rhythm Nonspecific T wave abnormality Abnormal ECG
== END 2017-08-30 19:28 | disposition home or self-care (01) ==
LOC: H.ER 15:15
DX: R42 Dizziness and giddiness (principal)
CPT/HCPCS: 80053; 81025; 82948; 85025; 93005; 99285; J7040

== ENCOUNTER 2017-09-06 07:48 | Emergency (ER) | payer MEDICAID ==
[2017-09-06 08:03] VITALS: BMI 39.4
[2017-09-06 08:07] VITALS: TEMP 98.1
--- NOTE | 2017-09-06 08:40 | ED PDOC ---
Lower Extremity Pain/Injury Time Seen by Provider: 09/06/17 08:12 Chief Complaint (Nursing): Lower Extremity Problem/Injury History Per: Patient Onset/Duration Of Symptoms: Other (2 months) Current Symptoms Are (Timing): Still Present Severity: Moderate Additional Complaint(s): Pain left foot and ankle x 2 months. Injured left foot when falling 2 months ago Has pain on ambulation. H/o HTN and DM Past Medical History Vital Signs: Last Vital Signs Temp 98.1 F 09/06/17 08:03 Pulse 83 09/06/17 08:03 Resp 20 09/06/17 08:03 BP 171/115 H 09/06/17 08:03 Pulse Ox 99 09/06/17 08:03 - Medical History PMH: Diabetes, Gastritis, HTN Denies: HIV, Hyperthyroidism, Migraine, Chronic Kidney Disease - Family History Family History: States: Unknown Family Hx - Home Medications Home Medications: Ambulatory Orders Medication Instructions Recorded Acetaminophen [Tylenol 325mg tab] 650 mg PO Q6 PRN tab 03/17/17 NIFEdipine ER [Procardia XL] 30 mg PO DAILY #30 ter 03/17/17 NIFEdipine ER [Procardia XL] 30 mg PO DAILY #15 tab 05/16/17 Azithromycin [Zithromax] 250 mg PO DAILY #6 tab 06/11/17 Naproxen 1 tab PO Q12 PRN #14 tab 07/01/17 cloNIDine [Catapres] 0.1 mg PO Q8 #90 tab 07/21/17 Clindamycin [Cleocin] 300 mg PO TID #30 cap 08/03/17 amLODIPine [Norvasc] 5 mg PO DAILY #30 tab 08/03/17 traMADol [Ultram] 50 mg PO Q8 #10 tab 08/03/17 metFORMIN [glucOPHAGE] 500 mg PO BID #30 tab 08/17/17 Meclizine [Meclizine*] 25 mg PO Q8 #15 tab 08/30/17 traMADol [Ultram] 50 mg PO Q8 #10 tab 09/06/17 - Allergies Allergies/Adverse Reactions: Allergies Allergy/AdvReac Type Severity Reaction Status Date / Time Seafood Allergy SHORTNESS Uncoded 09/06/17 08:00 OF BREATH Review of Systems Cardiovascular: Negative for: Chest Pain Respiratory: Negative for: Shortness of Breath Musculoskeletal: Positive for: Foot Pain, Other (ankle pain) Physical Exam - Physical Exam Appears: Positive for: Non-toxic, No Acute Distress Skin: Positive for: Normal Color, Warm, DRY Cardiovascular/Chest: Positive for: Regular Rate, Rhythm Respiratory: Positive for: Normal Breath Sounds Extremity: Positive for: Other (Left heel tenderness medially. Tenderness medial maleolus. No deformity or swelling) Neurologic/Psych: Positive for: Alert, Oriented. Negative for: Motor/Sensory Deficits - ECG O2 Sat by Pulse Oximetry: 99 Disposition - Clinical Impression Clinical Impression: Foot fracture - Patient ED Disposition Is Patient to be Admitted: No Counseled Patient/Family Regarding: Studies Performed, Diagnosis, Need For Followup, Rx Given - Disposition Referrals: Podiatry Clinic [Outside] Disposition: Routine/Home Disposition Time: 12:07 Condition: FAIR Prescriptions: traMADol [Ultram] 50 mg PO Q8 #10 tab Instructions: Foot Fracture (DC) Forms: [employer] [employer] (Colombian)
--- NOTE | 2017-09-06 09:29 | RAD ---
PROCEDURE: Left Ankle Radiographs. HISTORY: pain COMPARISON: None FINDINGS: BONES: Bone alignment and mineralization are normal. There is no acute displaced fracture or bone destruction. There is a prominent plantar calcaneal spur. JOINTS: Normal. No osteoarthritis. Ankle mortise maintained. Talar dome intact SOFT TISSUES: There is mild medial soft tissue swelling. OTHER FINDINGS: None. IMPRESSION: No acute fracture or dislocation.
--- NOTE | 2017-09-06 09:32 | RAD ---
PROCEDURE: Left Foot Radiographs. HISTORY: pain COMPARISON: None. FINDINGS: BONES: Bone alignment and mineralization are normal. There is a linear os ossific density posterior medial to the navicular. JOINTS: Normal. SOFT TISSUES: There is diffuse soft tissue swelling in the foot. OTHER FINDINGS: None. IMPRESSION: Linear ossific density posterior medial to the navicular could represent the fracture fragment. Diffuse soft tissue swelling in the foot. Correlation with point tenderness and clinical follow-up advised.
[2017-09-06 09:34] VITALS: PULSE 74
--- NOTE | 2017-09-06 10:58 | CP.PCM.CON ---
History of Present Illness - History of Present Illness History of Present Illness: Consult note: Dr. Amaro 36 year old female patient with PMHx of DM, HTN, and gastritis was seen and evaluated at bedside in ED for left foot pain. Patient reports that she fell and acquired an injury to her back, and foot about 2.5 months ago. Patient reports that she can not recall what the injury was but she became unconscious at the time and her other pain were so significant that she did not really feel foot pain. Patient reports that about 2 days ago her pain in the left foot progressively started getting worst to the point she can not even walk which is what led her decision to come to the ED now. Patient denies of having any recent trauma to the foot. Patient denies of having any prior treatment before coming to the hospital today. Patient denies of taking any pain medications for the pain. Patient denies of having any recent F/N/V/C/SOB/CP/headache. Patient denies of having any other pedal complains at this time. PMHx: DM, HTN, Gastritis PSHx: Denies Allergies: N.K.D.A SHx: Denies smoking, EtOH or illicit drug usage Review of Systems - Constitutional Constitutional: As Per HPI Past Patient History - Past Medical History & Family History Past Medical History?: Yes - Past Social History Smoking Status: Light Smoker < 10 Cigarettes Daily - CARDIAC Hx Hypertension: Yes - PULMONARY Hx Respiratory Disorders: No - NEUROLOGICAL Hx Migraine: No - HEENT Hx HEENT Problems: No - RENAL Hx Chronic Kidney Disease: No - ENDOCRINE/METABOLIC Hx Hyperthyroidism: No - HEMATOLOGICAL/ONCOLOGICAL Hx Human Immunodeficiency Virus (HIV): No - INTEGUMENTARY Hx Dermatological Problems: No - MUSCULOSKELETAL/RHEUMATOLOGICAL Hx Musculoskeletal Disorders: No Hx Falls: No - GASTROINTESTINAL Hx Gastritis: Yes - GENITOURINARY/GYNECOLOGICAL Hx Genitourinary Disorders: No - PSYCHIATRIC Hx Psychophysiologic Disorder: No Hx Substance Use: No - SURGICAL HISTORY Hx Surgeries: No - ANESTHESIA Hx Anesthesia: No Meds Allergies/Adverse Reactions: Allergies Allergy/AdvReac Type Severity Reaction Status Date / Time Seafood Allergy SHORTNESS Uncoded 09/06/17 08:00 OF BREATH Physical Exam - Constitutional Appears: Well, Non-toxic, No Acute Distress - Extremities Exam Additional comments: Bilateral LE focused exam: VASC: DP/PT pulses are palpable 2/4 B/L. Cap refill time: < 3 seconds to all digits. Skin temperature warm to cool from proximal to distal. mild non-pitting edema noted on the medial aspect of the left foot extending to the medial aspect of the ankle DERM: no open lesions, no inter digital maceration, nails are cut to hygenic length, no clinical suspicion of active infection NEURO: Epicritic and protective sensation intact ORTHO: pain on palpation on navicular tuberosity, pain on palpation along the course of the posterior tibial tendon proximal to the medial malleolus and at its insertion, no pain on DF, PF, inversion and eversion during AROM but pain present during eversion on PROM. MMT: 5/5 on the right and 4/5 on DF, PF and 3/ 5 on inversion and eversion - Neurological Exam Neurological exam: Alert, Oriented x3 - Psychiatric Exam Psychiatric exam: Normal Affect, Normal Mood Results - Vital Signs Recent Vital Signs: Last Vital Signs Temp 98.1 F 09/06/17 08:03 Pulse 74 09/06/17 09:34 Resp 20 09/06/17 08:03 BP 165/98 H 09/06/17 09:34 Pulse Ox 99 09/06/17 08:41 Assessment & Plan - Assessment and Plan (Free Text) Assessment: 36 year old female patient with PMHx of DM, HTN, and gastritis was evaluated for left foot pain secondary to old injury resulting in fracture fragment of navicular tuberosity and posterior tibial tendonitis Plan: Patient seen and evaluated Discussed in details with attending Dr. Amaro Vitals and charts reviewed - afebrile X-rays of the foot and ankle reviewed - Increase in radiodensity on the posterior medial aspect of the medial navicular which can represent an old fragment/fracture from previous injury - Increase in soft tissue density indicating soft tissue swelling secondary to the posterior tibial tendon inflammation Patient educated of the etiology of the pain Patient placed in a mayen compression dressing and a surgical shoe provided Patient educated of the RICE protocol Patient educated to take anti-inflammatory if pain is non tolerable Patient educated to follow up in the podiatry clinic in one week (Saturday) for a further work-up Patient demonstrated verbal understanding Thank you for the podiatry consult and allowing to take part in patient care - Date & Time Date: 09/06/17 Time: 10:15
[2017-09-06 12:42] VITALS: BP 168/94; RESP 18; O2SAT 98
== END 2017-09-06 12:51 | disposition home or self-care (01) ==
LOC: H.ER 07:48
DX: F17.210 Nicotine dependence, cigarettes, uncomplicated (principal); E11.9 Type 2 diabetes mellitus without complications; I10 Essential (primary) hypertension; Z79.84 Long term (current) use of oral hypoglycemic drugs; W19.XXXA Unspecified fall, initial encounter

== ENCOUNTER 2017-10-03 23:20 | Emergency (ER) | payer MEDICAID ==
[2017-10-03 23:21] VITALS: BMI 39.4
[2017-10-04 00:12] VITALS: BP 176/100; RESP 20; TEMP 98.8; O2SAT 96
[2017-10-04] MEDS ORDERED: Albuterol-Ipratrop 3 mg / 0.5 (3 ml) UD INH STA ×2 (01:39→01:40)
[2017-10-04] MEDS ORDERED: Albuterol 0.083% Inhal Sol (2.5 mg/3 mL) UD INH STA (01:40)
[2017-10-04] MEDS ORDERED: Albuterol 0.083% Inhal Sol (2.5 mg/3 mL) UD ONE (01:50)
[2017-10-04] MEDS ORDERED: Albuterol-Ipratrop 3 mg / 0.5 (3 ml) UD ONE (01:51)
[2017-10-04 03:31] VITALS: PULSE 112
[2017-10-04 04:21] LABS: BASO # 0.1 K/uL (0.0-0.2); BASO % 0.8 % (0.0-2.0); EOS # 0.2 K/uL (0.0-0.7); EOS % 2.2 % (0.0-4.0); HEMOGLOBIN 12.1 g/dL (12.0-16.0); LYMPH # 1.3 K/uL (1.0-4.3); LYMPH % 17.7 % (20.0-40.0); MEAN CELL VOLUME 75.1 fl (81.0-99.0); MEAN CORPUSCULAR HEMOGLOBIN 24.5 pg (27.0-31.0); MEAN CORPUSCULAR HGB CONC 32.7 g/dL (33.0-37.0); MEAN PLATELET VOLUME 9.5 fl (7.2-11.7); MONO # 0.4 K/uL (0.0-0.8); MONO % 5.5 % (0.0-10.0); NEUT # 5.5 K/uL (1.8-7.0); NEUT % 73.8 % (50.0-75.0); NRBC % 0.1 % (0.0-0.0); RBC 4.95 Mil/uL (3.80-5.20); RED CELL DISTRIBUTION WIDTH 15.2 % (11.5-14.5); WHITE BLOOD COUNT 7.4 K/uL (4.8-10.8)
[2017-10-04 04:27] LABS: CALCIUM 8.8 mg/dL (8.4-10.2); GFR AFRICAN-AMERICAN > 60; GFR NON-AFRICAN AMERICAN > 60
[2017-10-04 04:32] LABS: ALB/GLOB RATIO 1.2 (1.0-2.1); ALBUMIN 4.6 g/dL (3.5-5.0); ALT/SGPT 34 U/L (9-52); AST/SGOT 39 U/L (14-36); BLOOD UREA NITROGEN 8 mg/dl (7-17)
--- NOTE | 2017-10-04 06:10 | ED PDOC ---
HPI: General Adult Time Seen by Provider: 10/04/17 01:01 Chief Complaint (Nursing): Shortness Of Breath Chief Complaint (Provider): SOB, Leg Pain History Per: Patient History/Exam Limitations: no limitations Onset/Duration Of Symptoms: Hrs (x1.5) Have you had recent travel within the past 21 days to any of the following countries: [place], [place], [place] or [place]?: No Current Symptoms Are (Timing): Still Present Additional Complaint(s): Patient is a 37 year old female who presents to ED reporting SOB and right leg pain for the past 1.5 hours. Patient states the SOB was sudden in onset and constant, associated with dry cough. She states her right leg pain originates in the hip and radiates down to her toes and worsens with movement. She denies any history of injury to the right lower extremity. Patient took no medications prior to arrival. Patient denies: chest pain, N/V/D, abdominal pain, numbness/ weakness, fever, chills, leg swelling, calf tenderness, control use, prolonged immobility, saddle anesthesia, incontinence, urinary symptoms, flank pain. PMD: Sham LMP: 09/30/17 Against Medical Advice - AMA Patient Left Against Medical Advice: The patient declines admission to the hospital and wishes to leave the Emergency Department. This action is against my medical advice. This decision was made with informed refusal. The patient was told that admission to the hospital is necessary. Explanation of the reasons why were discussed. The risks of leaving were explained to the patient and include, but are not limited to, worsening of known or currently unknown conditions, permanent disability and from undiagnosed or untreated conditions. The patient has the capacity to make this informed decision and understands my explanation of the current medical problem and risks of leaving. The patient voluntarily accepts these risks and signed an AMA form documenting our conversation. The patient was given the opportunity to ask questions and reconsider. The patient was encouraged to return to the Emergency Department at any time for further care. Patient did not refuse admission but refused IV access and CT evaluation. Patient left ED prior to signing AMA paperwork Past Medical History Reviewed: Historical Data, Nursing Documentation, Vital Signs Vital Signs: Last Vital Signs Temp 98.8 F 10/04/17 00:09 Pulse 112 H 10/04/17 03:31 Resp 20 10/04/17 00:09 BP 176/100 H 10/04/17 00:09 Pulse Ox 96 10/04/17 06:38 - Medical History PMH: Asthma, Diabetes, Gastritis, HTN Denies: HIV, Hyperthyroidism, Migraine, Chronic Kidney Disease - Family History Family History: States: Unknown Family Hx - Social History Current smoker - smoking cessation education provided: Yes (4 cigs/day) Alcohol: None Drugs: Denies - Home Medications Home Medications: Ambulatory Orders Medication Instructions Recorded Acetaminophen [Tylenol 325mg tab] 650 mg PO Q6 PRN tab 03/17/17 NIFEdipine ER [Procardia XL] 30 mg PO DAILY #30 ter 03/17/17 NIFEdipine ER [Procardia XL] 30 mg PO DAILY #15 tab 05/16/17 Azithromycin [Zithromax] 250 mg PO DAILY #6 tab 06/11/17 Naproxen 1 tab PO Q12 PRN #14 tab 07/01/17 cloNIDine [Catapres] 0.1 mg PO Q8 #90 tab 07/21/17 Clindamycin [Cleocin] 300 mg PO TID #30 cap 08/03/17 amLODIPine [Norvasc] 5 mg PO DAILY #30 tab 08/03/17 traMADol [Ultram] 50 mg PO Q8 #10 tab 08/03/17 metFORMIN [glucOPHAGE] 500 mg PO BID #30 tab 08/17/17 Meclizine [Meclizine*] 25 mg PO Q8 #15 tab 08/30/17 traMADol [Ultram] 50 mg PO Q8 #10 tab 09/06/17 - Allergies Allergies/Adverse Reactions: Allergies Allergy/AdvReac Type Severity Reaction Status Date / Time Seafood Allergy SHORTNESS Uncoded 10/04/17 00:09 OF BREATH Review of Systems ROS Statement: Except As Marked, All Systems Reviewed And Found Negative Respiratory: Positive for: Cough, Shortness of Breath Musculoskeletal: Positive for: Leg Pain (right) Physical Exam - Reviewed Nursing Documentation Reviewed: Yes Vital Signs Reviewed: Yes - Physical Exam Appears: Positive for: Well (obese), Non-toxic, No Acute Distress Head Exam: Positive for: ATRAUMATIC, NORMOCEPHALIC Skin: Positive for: Normal Color, Warm, Dry Eye Exam: Positive for: EOMI, PERRL. Negative for: Nystagmus, Conjunctival injection ENT: Positive for: Pharynx Is (clear, uvula midline), TM Is/Are (nonbulging, nonerythematous bilaterally). Negative for: Nasal Congestion, Pharyngeal Erythema Neck: Positive for: Painless ROM, Supple Cardiovascular/Chest: Positive for: Regular Rate, Rhythm, Tachycardia. Negative for: Chest Non Tender Respiratory: Positive for: Decreased Breath Sounds (bilaterally), Wheezing ( faint inspiratory wheezing ), Other (respirations nonlabored, speaking in full sentences). Negative for: Accessory Muscle Use, Stridor, Respiratory Distress Gastrointestinal/Abdominal: Positive for: Soft. Negative for: Tenderness, Distended, Guarding Extremity: Positive for: Normal ROM (throughout right lower extremity), Capillary Refill (<2 seconds). Negative for: Tenderness, Pedal Edema, Calf Tenderness, Deformity, Swelling Neurologic/Psych: Positive for: Alert, Oriented (x3), Gait (steady in ED). Negative for: Motor/Sensory Deficits, Aphasia, Facial Droop - Laboratory Results Result Diagrams: 10/04/17 04:15 - ECG O2 Sat by Pulse Oximetry: 96 (RA) Pulse Ox Interpretation: Normal Medical Decision Making Medical Decision Makin:39 Initial Impression: Asthma exacerbation, SOB, leg pain Plan: -Duoneb x2 -Albuterol x1 -Prednisone 60mg PO -Upreg -Toradol IM -Re-eval 0225 Patient reports minimal improvement of symptoms. Patient noted to be slightly tachycardic, likely due to nebulizer treatments. Pending repeat vitals. 0300 Patient with persistent tachycardia >110bpm. Patient states SOB has continued to improve slightly. 0315 Case discussed with ED MD Barron. Due to persistent tachycardia and risk factors of smoking and obesity for PE, CT chest ordered along with labs and IV access. 0328 Patient requesting to leave AMA at this time. Patient eloped prior to signing AMA form. Disposition - Clinical Impression Clinical Impression: SOB (shortness of breath), Leg pain, right - Patient ED Disposition Is Patient to be Admitted: No - Disposition Referrals: Lei Waddell MD [Primary Care Provider] - Disposition: Against Medical Advice (patient left ED prior to signing AMA paperwork) Disposition Time: 03:28 Condition: FAIR Forms: [facility] (Macedonian) Print Language: SAMI Results - Lab Results Lab Results: 10/04/17 04:15 Sodium 140 Potassium 3.9 Chloride 101 Carbon Dioxide 24 Anion Gap 19 BUN 8 Creatinine 0.8 Est GFR ( Amer) > 60 Est GFR (Non-Af Amer) > 60 Random Glucose 220 H Calcium 8.8 Total Bilirubin 1.0 AST 39 H D ALT 34 Alkaline Phosphatase 67 Total Protein 8.6 H Albumin 4.6 Globulin 4.0 H Albumin/Globulin Ratio 1.2
== END 2017-10-04 05:31 | disposition left against medical advice (07) ==
LOC: H.ER 23:20
DX: R06.02 Shortness of breath (principal); M79.604 Pain in right leg; E11.9 Type 2 diabetes mellitus without complications; I10 Essential (primary) hypertension; J45.901 Unspecified asthma with (acute) exacerbation; Z79.84 Long term (current) use of oral hypoglycemic drugs; F17.200 Nicotine dependence, unspecified, uncomplicated
CPT/HCPCS: 80053; 85025; 96372; 99283; J1885

== ENCOUNTER 2017-10-05 22:44 | Inpatient (IN) | payer MEDICAID ==
[2017-10-05 22:44] VITALS: BMI 39.4
[2017-10-05] MEDS ORDERED: DiphenhydrAMINE 50 mg/ml Inj IV STA (23:48)
[2017-10-05] MEDS ORDERED: Sodium Chloride 0.9% 1,000 ML IV STA (23:48)
[2017-10-05] MEDS ORDERED: Iodixanol 320 MG/ML 100 ML BOTTLE IV ONE (23:50)
[2017-10-05] MEDS ORDERED: Sodium Chloride 0.9% 100 ML ONE (23:51)
--- NOTE | 2017-10-06 00:19 | ED PDOC ---
History of Present Illness History of Present Illness: Chey Reyes is a 37 year old homeless female well known to the ER, with a past medical history of hypertension and diabetes, who is presenting to the ED with complaints of chest pain onset 4 days ago. Patient was seen in the ED 2 days ago for similar complaints, flu-like symptoms, shortness of breath, and active wheezing. She was given a Duoneb treatment, which improved the wheezing but not the shortness of breath, and was advised for a chest CT. Patient at the time refused the CT and signed out AMA. Today, she reports that the symptoms have worsened and is agreeable to the chest CT. Patient denies any fevers, nausea, vomiting, or diarrhea. She offers no other medical complaints at this time. PMD: Lei Waddell HPI: Influenza Time Seen by Provider: 10/05/17 22:58 Chief Complaint: Cough, Cold, Congestion Chief Complaint (Provider): Chest pain History Per: Patient Exam Limitations: no limitations Onset/Duration Of Symptoms: Days (x4) Symptoms include: chest pain. denies: fever, vomiting, diarrhea Past Medical History Reviewed: Historical Data, Nursing Documentation, Vital Signs Vital Signs: Last Vital Signs Temp 98.0 F 10/05/17 22:52 Pulse 102 H 10/05/17 22:52 Resp 16 10/05/17 22:52 BP 182/110 H 10/05/17 22:52 Pulse Ox 97 10/05/17 22:52 - Medical History PMH: Asthma, Diabetes, Gastritis, HTN Denies: HIV, Hyperthyroidism, Migraine, Chronic Kidney Disease - Surgical History Surgical History: No Surg Hx - Family History Family History: States: Unknown Family Hx - Social History Current smoker - smoking cessation education provided: Yes (0.5 packs per day) Alcohol: None Drugs: Denies - Home Medications Home Medications: Ambulatory Orders Medication Instructions Recorded Acetaminophen [Tylenol 325mg tab] 650 mg PO Q6 PRN tab 03/17/17 NIFEdipine ER [Procardia XL] 30 mg PO DAILY #30 ter 03/17/17 NIFEdipine ER [Procardia XL] 30 mg PO DAILY #15 tab 05/16/17 Azithromycin [Zithromax] 250 mg PO DAILY #6 tab 06/11/17 Naproxen 1 tab PO Q12 PRN #14 tab 07/01/17 cloNIDine [Catapres] 0.1 mg PO Q8 #90 tab 07/21/17 Clindamycin [Cleocin] 300 mg PO TID #30 cap 08/03/17 amLODIPine [Norvasc] 5 mg PO DAILY #30 tab 08/03/17 traMADol [Ultram] 50 mg PO Q8 #10 tab 08/03/17 metFORMIN [glucOPHAGE] 500 mg PO BID #30 tab 08/17/17 Meclizine [Meclizine*] 25 mg PO Q8 #15 tab 08/30/17 traMADol [Ultram] 50 mg PO Q8 #10 tab 09/06/17 - Allergies Allergies/Adverse Reactions: Allergies Allergy/AdvReac Type Severity Reaction Status Date / Time Seafood Allergy SHORTNESS Uncoded 10/04/17 00:09 OF BREATH Review of Systems ROS Statement: Except As Marked, All Systems Reviewed And Found Negative Constitutional: Negative for: Fever Cardiovascular: Positive for: Chest Pain Respiratory: Positive for: Shortness of Breath Gastrointestinal: Negative for: Nausea, Vomiting, Diarrhea Physical Exam - Reviewed Nursing Documentation Reviewed: Yes Vital Signs Reviewed: Yes - Physical Exam Appears: Positive for: Non-toxic, No Acute Distress, Uncomfortable Head Exam: Positive for: ATRAUMATIC, NORMAL INSPECTION, NORMOCEPHALIC Skin: Positive for: Normal Color, Warm, Dry Eye Exam: Positive for: EOMI, Normal appearance, PERRL Neck: Positive for: Normal, Painless ROM, Supple Cardiovascular/Chest: Positive for: Tachycardia. Negative for: Murmur Respiratory: Positive for: Normal Breath Sounds. Negative for: Respiratory Distress Gastrointestinal/Abdominal: Positive for: Normal Exam, Soft. Negative for: Tenderness Back: Positive for: Normal Inspection. Negative for: L CVA Tenderness, R CVA Tenderness, Vertebral Tenderness Extremity: Positive for: Normal ROM. Negative for: Pedal Edema, Deformity, Swelling Neurologic/Psych: Positive for: Alert, Oriented. Negative for: Motor/Sensory Deficits Medical Decision Making Medical Decision Making: Time: 23:48 Impression: 37 year old female with chest pain and a history of hypertension, smoking, and obesity Initial Plan: --CT Chest --EKG --Benadryl 50 mg IV --Solu-Medrol 125 mg IVP --IV Fluids --Accucheck Patient sent straight for CT chest; labs recently completed. CT Chest: FINDINGS: No pulmonary embolism. No aortic dissection or aneurysm. No pleural or pericardial effussions. A small focal area of pleural thickening is noted in the lateral left lung. There are small scattered hazy opacities bilaterally. There are areas of consolidation in the lingula and right midlung. Slight asymmetry of the thyroid lobes being more prominent on the left. Splenic calcifications. IMPRESSION: Patchy hazy opacities bilaterally with areas of consolidation in the mid lungs likely representing a combination of infectious infiltrates and atelectasis. Followup is recommended to ensure complete resolution. 1:23 Patient exhibits persistent shortness of breath and will be admitted for observation and pneumonia. She is given IV Levaquin and case is referred to Dr. Waddell. Scribe Attestation: Documented by Sachi Dennison, acting as a scribe for Los Barron MD. Provider Scribe Attestation: All medical record entries made by the Scribe were at my direction and personally dictated by me. I have reviewed the chart and agree that the record accurately reflects my personal performance of the history, physical exam, medical decision making, and the department course for this patient. I have also personally directed, reviewed, and agree with the discharge instructions and disposition. - ECG O2 Sat by Pulse Oximetry: 97 (RA) Pulse Ox Interpretation: Normal Disposition - Clinical Impression Clinical Impression: SOB (shortness of breath) - Patient ED Disposition Is Patient to be Admitted: Yes - Disposition Disposition: Transfer of Care Disposition Time: 01:23 Condition: FAIR Forms: [employer] ([place])
--- NOTE | 2017-10-06 01:03 | CT ---
EXAM: CT Angiography Chest Mip With Intravenous Contrast EXAM DATE/TIME: 10/05/2017 10:59 PM CLINICAL HISTORY: 37 years old, female; Signs and symptoms; Other: Chest pain; Additional info: Chest pain R/O pe TECHNIQUE: Axial computed tomographic angiography images of the chest mip with intravenous contrast. All CT scans at this facility use one or more dose reduction techniques, viz.: automated exposure control; ma/kV adjustment per patient size (including targeted exams where dose is matched to indication; i.e. head); or iterative reconstruction technique. MIP reconstructed images were created and reviewed. Coronal and sagittal reformatted images were created and reviewed. CONTRAST: 95 mL of VISIPAQUE-320 administered intravenously. COMPARISON: No relevant prior studies available. FINDINGS: No pulmonary embolism. No aortic dissection or aneurysm. No pleural or pericardial effussions. A small focal area of pleural thickening is noted in the lateral left lung. There are small scattered hazy opacities bilaterally. There are areas of consolidation in the lingula and right midlung. Slight asymmetry of the thyroid lobes being more prominent on the left. Splenic calcifications. IMPRESSION: Patchy hazy opacities bilaterally with areas of consolidation in the mid lungs likely representing a combination of infectious infiltrates and atelectasis. Followup is recommended to ensure complete resolution.
[2017-10-06] MEDS ORDERED: levoFLOXacin 500 mg in D5W 500 MG/100 ML BAG IVPB STA (01:18)
[2017-10-06] MEDS ORDERED: Albuterol-Ipratrop 3 mg / 0.5 (3 ml) UD INH STA ×2 (01:22→03:59)
[2017-10-06 02:03] LABS: BASO # 0.1 K/uL (0.0-0.2); BASO % 0.7 % (0.0-2.0); EOS # 0.2 K/uL (0.0-0.7); EOS % 2.3 % (0.0-4.0); HEMOGLOBIN 11.9 g/dL (12.0-16.0); LYMPH # 1.7 K/uL (1.0-4.3); MEAN CELL VOLUME 75.5 fl (81.0-99.0); MEAN CORPUSCULAR HEMOGLOBIN 24.4 pg (27.0-31.0); MEAN CORPUSCULAR HGB CONC 32.3 g/dL (33.0-37.0); MEAN PLATELET VOLUME 9.7 fl (7.2-11.7); MONO # 0.3 K/uL (0.0-0.8); MONO % 3.8 % (0.0-10.0); NEUT # 6.9 K/uL (1.8-7.0); NEUT % 75.2 % (50.0-75.0); NRBC % 0.1 % (0.0-0.0); RBC 4.88 Mil/uL (3.80-5.20); RED CELL DISTRIBUTION WIDTH 15.7 % (11.5-14.5); WHITE BLOOD COUNT 9.2 K/uL (4.8-10.8)
[2017-10-06] MEDS ORDERED: levoFLOXacin 500 mg in D5W 500 MG/100 ML BAG IVPB ONE (02:04)
[2017-10-06 02:26] LABS: B-TYPE NATRIURETIC PEPTIDE 69.7 pg/ml (0-450)
[2017-10-06 02:28] LABS: ALB/GLOB RATIO 1.2 (1.0-2.1); ALBUMIN 4.1 g/dL (3.5-5.0); ALT/SGPT 31 U/L (9-52); AST/SGOT 23 U/L (14-36); BLOOD UREA NITROGEN 14 mg/dl (7-17); GFR AFRICAN-AMERICAN > 60; GFR NON-AFRICAN AMERICAN > 60
[2017-10-06] MEDS ORDERED: levoFLOXacin 750 mg in D5W 150 ML BAG IVPB SCH (09:00)
[2017-10-06] MEDS ORDERED: levoFLOXacin 750 mg in D5W 750 MG/150 ML BAG IVPB SCH (09:00)
[2017-10-06] MEDS: Albuterol-Ipratrop 3 mg / 0.5 (3 ml) UD INH SCH ×3 (10:18→19:50)
[2017-10-06] MEDS: Insulin Lispro (humaLOG) 100 Units/ml Inj SC SCH ×4 (12:14→22:01)
--- NOTE | 2017-10-06 12:43 | CARD ---
APPROVED REPORT EKG Measurement Heart [id number] <Conclusion> Sinus tachycardia Biatrial enlargement Nonspecific ST and T wave abnormality Abnormal ECG
--- NOTE | 2017-10-06 21:42 | HP ---
HISTORY OF PRESENT ILLNESS: This is a 37-year-old female with history of type 2 diabetes mellitus and hypertension, not compliant to medications, presented to emergency room with complaint of chest pain onset for 4 days. The patient symptoms were not associated with flu-like symptoms, shortness of breath, and wheezing. The patient was given DuoNeb treatment in the emergency room and was advised to have a CTA of the chest. The patient refuses CT and signed against medical advice. The patient came back to emergency room and reports worsening of her symptoms and agreed for the CT angiogram. The patient was found to have bilateral pneumonia. Subsequently, she was started on IV antibiotics and admitted for further management. The patient lives in a fdc and other review of system is positive for lower back pain that radiates to right lower extremity. ALLERGIES: THERE IS ALLERGY TO SEAFOOD. HOME MEDICATIONS: Metformin 500 mg twice a day, nifedipine ER 60 mg daily, and bisoprolol 5 mg daily. SOCIAL HISTORY: Positive for smoker. Denied EtOH or substance abuse. FAMILY HISTORY: Noncontributory. PHYSICAL EXAMINATION: GENERAL: The patient is in bed, comfortable at the time of this examination with mild wheezing. VITAL SIGNS: Blood pressure is 147/83, temperature 98.3, respiratory rate 20, and pulse 90. HEENT: Pupils equal and reactive to light. Normal-appearing mucosa of the conjunctivae, oropharynx, and nasal membrane mucosa. NECK: Supple. No JVD. No carotid bruit. No lymph node. No thyromegaly. CHEST AND LUNGS: Bilateral symmetrical expansion. Few bilateral fine rales. CARDIOVASCULAR: PMI not localized. S1 and S2. No additional sounds. ABDOMEN: Normoactive bowel sounds. No tenderness. No organomegaly. No masses. EXTREMITIES: No cyanosis. No clubbing. No edema. CENTRAL NERVOUS SYSTEM: Alert, awake, and oriented x2. No neurological deficit could be appreciated. ASSESSMENT: 1. Community-acquired pneumonia. 2. Type 2 diabetes mellitus. 3. Hypertension. PLAN: Continue Levaquin 750 mg daily. We will give the patient DuoNeb as needed, metformin, Januvia and nifedipine with bisoprolol to treat the hypertension. We will do also x-ray of the lumbar spine. Sameh MD [facility] # [id number]
[2017-10-06] MEDS: levoFLOXacin 750 mg in D5W 750 MG/150 ML BAG IVPB SCH (22:00)
[2017-10-07] MEDS: Albuterol-Ipratrop 3 mg / 0.5 (3 ml) UD INH SCH ×4 (01:00→19:33)
[2017-10-07] MEDS: Insulin Lispro (humaLOG) 100 Units/ml Inj SC SCH ×4 (08:43→22:30)
[2017-10-07] MEDS: levoFLOXacin 750 mg in D5W 750 MG/150 ML BAG IVPB SCH (20:56)
--- NOTE | 2017-10-07 23:29 | PN ---
DATE: 10/07/2017 SUBJECTIVE: She has less chest tightness and cough. OBJECTIVE: VITAL SIGNS: Blood pressure is 142/92, temperature 98.1, respiratory rate 18 and pulse 77. HEENT: Pupils equal, reactive to light. Normal-appearing mucosa of the conjunctivae, oropharynx and nasal membrane mucosa. NECK: Supple. No JVD. No carotid bruit. No lymph node. No thyromegaly. CHEST/LUNGS: Bilateral symmetrical expansion, good air exchange. No rales, no rhonchi. CARDIOVASCULAR: System PMI not localized. S1 and S2. No additional sounds. ABDOMEN: Normoactive bowel sounds. No tenderness. No organomegaly. No masses. EXTREMITIES: No cyanosis, clubbing, no edema. [employer]ANT: Alert, awake, oriented x2. Neurological deficit could be appreciated. ASSESSMENT: Pneumonia, hypertension, type 2 diabetes mellitus, smoker. PLAN: Continue current antibiotics and Accu-Cheks with insulin coverage and we will follow the x-ray of the lumbar spine ordered. Lei Waddell MD
[2017-10-08] MEDS: Albuterol-Ipratrop 3 mg / 0.5 (3 ml) UD INH SCH ×2 (01:01→19:10)
[2017-10-08] MEDS: Insulin Lispro (humaLOG) 100 Units/ml Inj SC SCH ×3 (07:30→17:33)
--- NOTE | 2017-10-08 08:57 | RAD ---
PROCEDURE: Radiographs of the Lumbar Spine. HISTORY: lumbar pain COMPARISON: No prior. FINDINGS: BONES: Normal alignment. No listhesis. No fracture. DISC SPACES: Unremarkable. OTHER FINDINGS: None. IMPRESSION: Unremarkable radiographs of the lumbar spine.
[2017-10-08 10:06] LABS: MEAN CELL VOLUME 76.3 fl (81.0-99.0); MEAN CORPUSCULAR HEMOGLOBIN 24.1 pg (27.0-31.0); MEAN CORPUSCULAR HGB CONC 31.6 g/dL (33.0-37.0); RBC 5.77 Mil/uL (3.80-5.20); RED CELL DISTRIBUTION WIDTH 15.8 % (11.5-14.5); WHITE BLOOD COUNT 14.5 K/uL (4.8-10.8)
[2017-10-08 10:30] LABS: BLOOD UREA NITROGEN 18 mg/dl (7-17); CALCIUM 9.9 mg/dL (8.4-10.2); GFR AFRICAN-AMERICAN > 60; GFR NON-AFRICAN AMERICAN 55
[2017-10-08 10:34] LABS: HEMOGLOBIN 13.9 g/dL (12.0-16.0)
[2017-10-08] MEDS ORDERED: MethylPREDNISolone 40 mg Vial IVP ONE (14:00)
[2017-10-08] MEDS ORDERED: methylPREDNISolone 40 MG in Sodium Chloride 0.9% 50 ML IVPB SCH (14:00)
[2017-10-08] MEDS: MethylPREDNISolone 40 mg Vial IVP SCH (14:26)
[2017-10-08] MEDS: levoFLOXacin 750 mg in D5W 750 MG/150 ML BAG IVPB SCH (21:28)
--- NOTE | 2017-10-08 23:35 | PN ---
DAILY PROGRESS NOTE DATE: 10/08/2017 SUBJECTIVE: The patient is seen today, 10/08/2017. Decreased shortness of breath and decreased cough. PHYSICAL EXAMINATION: VITAL SIGNS: Blood pressure 130/76, temperature 97.5, respiratory rate 18, and pulse 84. HEENT: Pupils equal and reactive to light. Normal-appearing mucosa of the conjunctivae. NECK: Supple. No JVD. No carotid bruit. No lymph node. No thyromegaly. CHEST AND LUNGS: Bilateral symmetrical expansion. Good air exchange. No rales. No rhonchi. CARDIOVASCULAR: PMI not localized. S1 and S2. No additional sounds. ABDOMEN: Normoactive bowel sounds. No tenderness. No organomegaly. No masses. EXTREMITIES: No cyanosis. No clubbing. No edema. CENTRAL NERVOUS SYSTEM: Alert, awake, and oriented x2. No neurological deficits could be appreciated. ASSESSMENT: 1. Pneumonia. 2. Exacerbation of bronchial asthma. 3. Hypertension. 4. Type 2 diabetes mellitus. PLAN: Continue current IV antibiotics and medications and follow results of the lumbar spine x-ray. We will start the patient on Solu-Medrol 20 mg IV every 8 hours. Lei Waddell MD
[2017-10-09] MEDS: Insulin Lispro (humaLOG) 100 Units/ml Inj SC SCH ×4 (00:12→17:01)
[2017-10-09] MEDS: Albuterol-Ipratrop 3 mg / 0.5 (3 ml) UD INH SCH ×3 (01:03→13:18)
[2017-10-09] MEDS: MethylPREDNISolone 40 mg Vial IVP SCH ×2 (02:34→13:03)
[2017-10-10 11:14] VITALS: BP 122/73; PULSE 91; RESP 17; TEMP 98.2; O2SAT 95
--- NOTE | 2017-10-10 14:53 | DS ---
REASON FOR ADMISSION: This is a 37-year-old female who was admitted for pneumonia and exacerbation of bronchial asthma. COURSE OF HOSPITALIZATION: The patient was admitted to medical floor and she was started on IV antibiotics and IV steroids. The patient showed remarkable improvement and before completion of therapy, the patient expressed that she has to go to make some appointments and she understood all the risks of completing the treatment and she signed against medical advice. FINAL DIAGNOSES: Pneumonia, hypertension, type 2 diabetes mellitus, and exacerbation of bronchial asthma. [facility] MD [facility]
== END 2017-10-09 07:40 | disposition left against medical advice (07) | DRG 90 ==
LOC: H.ER 22:44 → H.ERHOLD 10-06 01:21 → H.MEDSURG1 10-06 03:28 → OBSVTOIN 10-06 22:20 → H.MEDSURG1 10-08 16:19
PROVIDERS: ADMIT Internal Medicine; ATTEND Internal Medicine
DX: J18.9 Pneumonia, unspecified organism (principal); J45.901 Unspecified asthma with (acute) exacerbation; E11.9 Type 2 diabetes mellitus without complications; I10 Essential (primary) hypertension; Z59.0 Homelessness; F17.210 Nicotine dependence, cigarettes, uncomplicated; K29.70 Gastritis, unspecified, without bleeding; E66.9 Obesity, unspecified; Z91.14 Patient's other noncompliance with medication regimen; Z91.013 Allergy to seafood; Z68.35 Body mass index [BMI] 35.0-35.9, adult

== ENCOUNTER 2017-10-16 23:14 | Inpatient (IN) | payer MEDICAID ==
[2017-10-16 23:14] VITALS: BMI 39.4
[2017-10-17] MEDS ORDERED: Albuterol-Ipratrop 3 mg / 0.5 (3 ml) UD IH STA (00:48)
--- NOTE | 2017-10-17 00:51 | ED PDOC ---
HPI: CCC, URI, Sore Throat Time Seen by Provider: 10/17/17 00:31 Chief Complaint (Nursing): Flu-like Symptoms Chief Complaint (Provider): cough History Per: Patient History/Exam Limitations: no limitations Onset/Duration Of Symptoms: Days (1 week) Current Symptoms Are (Timing): Still Present Associated Symptoms: Cough, Sputum Additional Complaint(s): 37 y/o female presents for evaluation of productive cough x 1 week. Associated tactile fever, shortness of breath. Patient states she was admitted on 10/06 for pneumonia, and signed out against medical advice on 10/09 and states she didn 't take the prescribed antibiotics and steroids because they were never sent to her pharmacy. Denies headache, nasal congestion/discharge, throat pain, chest pain, palpitations, abdominal pain, leg pain/swelling, recent travel. Patient also complaining of pain to left foot x 2 months after a fall. Patient was diagnosed with a foot fracture, and has not followed up with podiatry yet. Denies new injury, numbness/weakness left lower extremity. Past Medical History Reviewed: Historical Data, Nursing Documentation, Vital Signs Vital Signs: Last Vital Signs Temp 98.4 F 10/17/17 05:16 Pulse 104 H 10/17/17 05:16 Resp 18 10/17/17 05:16 BP 128/74 10/17/17 05:16 Pulse Ox 98 10/17/17 05:28 - Medical History PMH: Asthma, Diabetes, Gastritis, HTN Denies: HIV, Hyperthyroidism, Migraine, Chronic Kidney Disease - Surgical History Surgical History: No Surg Hx - Family History Family History: States: Unknown Family Hx - Home Medications Home Medications: Ambulatory Orders Medication Instructions Recorded MetFORMIN [glucoPHAGE] 1,000 mg PO BID 10/17/17 cloNIDine [Catapres] 0.1 mg PO BID 10/17/17 - Allergies Allergies/Adverse Reactions: Allergies Allergy/AdvReac Type Severity Reaction Status Date / Time Seafood Allergy SHORTNESS Uncoded 10/16/17 23:29 OF BREATH Review of Systems ROS Statement: Except As Marked, All Systems Reviewed And Found Negative Respiratory: Positive for: Cough, Shortness of Breath, Sputum Musculoskeletal: Positive for: Foot Pain Physical Exam - Reviewed Nursing Documentation Reviewed: Yes Vital Signs Reviewed: Yes - Physical Exam Appears: Positive for: Well, Non-toxic, No Acute Distress (sleeping) Head Exam: Positive for: ATRAUMATIC, NORMAL INSPECTION, NORMOCEPHALIC Skin: Positive for: Normal Color Eye Exam: Positive for: Normal appearance ENT: Positive for: Normal ENT Inspection Cardiovascular/Chest: Positive for: Regular Rate, Rhythm Respiratory: Positive for: Wheezing Gastrointestinal/Abdominal: Positive for: Normal Exam Back: Positive for: Normal Inspection Extremity: Positive for: Normal ROM, Tenderness (left calcaneal area without swelling, erythema, deformity) Neurologic/Psych: Positive for: Alert, Oriented. Negative for: Motor/Sensory Deficits - Laboratory Results Result Diagrams: 10/17/17 03:56 10/17/17 03:56 - ECG ECG: Positive for: Viewed By Me (reviewed by ED attending) ECG Rhythm: Positive for: Sinus Rhythm O2 Sat by Pulse Oximetry: 98 - Progress ED Course And Treament: labs, chest xray, EXAM: XR Chest, 2 Views EXAM DATE/TIME: 10/17/2017 12:48 AM CLINICAL HISTORY: 37 years old, female; Signs and symptoms; Cough and shortness of breath; Symptoms not specified; Additional info: Cough, SOB TECHNIQUE: Frontal and lateral views of the chest. COMPARISON: Prior CT chest dated 10/05/2017. FINDINGS: LUNGS: Increased density in the right middle lobe, partially obscuring the right heart border, suspicious for an infiltrate/pneumonia. Compared to the rigger third radiographs on the recent CT chest, this appears increased. No evidence of diffuse pulmonary vascular congestion. PLEURAL SPACE: No pneumothorax or pleural effusions seen. HEART: Heart again appears mildly to moderately enlarged. MEDIASTINUM: See below. BONES/JOINTS: No acute bony abnormality visualized. VASCULATURE: Thoracic aorta appears mildly ectatic. IMPRESSION: - Findings suspicious for an infiltrate/pneumonia in the right middle lobe. - Mild to moderate cardiomegaly. - See above for remaining findings. IV Levaquin dose ordered. On re-eval, patient still reports feeling short of breath. Scant wheezing still noted. Case discussed with Dr. Waddell, will admit for pneumonia Disposition - Clinical Impression Clinical Impression: Pneumonia - Patient ED Disposition Is Patient to be Admitted: Yes - Disposition Disposition Time: 06:16 Condition: FAIR
[2017-10-17] MEDS ORDERED: Albuterol-Ipratrop 3 mg / 0.5 (3 ml) UD INH STA (00:57)
[2017-10-17] MEDS ORDERED: Albuterol-Ipratrop 3 mg / 0.5 (3 ml) UD ONE (01:27)
[2017-10-17 03:59] LABS: BASO # 0.1 K/uL (0.0-0.2); BASO % 0.6 % (0.0-2.0); EOS # 0.2 K/uL (0.0-0.7); EOS % 1.6 % (0.0-4.0); HEMOGLOBIN 12.3 g/dL (12.0-16.0); LYMPH % 31.2 % (20.0-40.0); MEAN CORPUSCULAR HEMOGLOBIN 24.4 pg (27.0-31.0); MEAN CORPUSCULAR HGB CONC 32.1 g/dL (33.0-37.0); MEAN PLATELET VOLUME 10.7 fl (7.2-11.7); MONO # 0.7 K/uL (0.0-0.8); MONO % 5.1 % (0.0-10.0); NEUT # 7.9 K/uL (1.8-7.0); NEUT % 61.5 % (50.0-75.0); NRBC % 0.1 % (0.0-0.0); RBC 5.03 Mil/uL (3.80-5.20); RED CELL DISTRIBUTION WIDTH 15.7 % (11.5-14.5); WHITE BLOOD COUNT 12.8 K/uL (4.8-10.8)
[2017-10-17 04:11] LABS: ALB/GLOB RATIO 1.2 (1.0-2.1); ALBUMIN 4.2 g/dL (3.5-5.0); ALT/SGPT 35 U/L (9-52); AST/SGOT 16 U/L (14-36); BLOOD UREA NITROGEN 10 mg/dl (7-17); GFR AFRICAN-AMERICAN > 60; GFR NON-AFRICAN AMERICAN > 60
--- NOTE | 2017-10-17 04:27 | RAD ---
EXAM: XR Chest, 2 Views EXAM DATE/TIME: 10/17/2017 12:48 AM CLINICAL HISTORY: 37 years old, female; Signs and symptoms; Cough and shortness of breath; Symptoms not specified; Additional info: Cough, SOB TECHNIQUE: Frontal and lateral views of the chest. COMPARISON: Prior CT chest dated 10/05/2017. FINDINGS: LUNGS: Increased density in the right middle lobe, partially obscuring the right heart border, suspicious for an infiltrate/pneumonia. Compared to the mri supervisor radiographs on the recent CT chest, this appears increased. No evidence of diffuse pulmonary vascular congestion. PLEURAL SPACE: No pneumothorax or pleural effusions seen. HEART: Heart again appears mildly to moderately enlarged. MEDIASTINUM: See below. BONES/JOINTS: No acute bony abnormality visualized. VASCULATURE: Thoracic aorta appears mildly ectatic. IMPRESSION: - Findings suspicious for an infiltrate/pneumonia in the right middle lobe. - Mild to moderate cardiomegaly. - See above for remaining findings.
[2017-10-17 04:37] LABS: VENOUS BLOOD GAS BASE EXCESS -0.2 mmol/L (0.0-2.0); VENOUS BLOOD GAS PCO2 44 mmHg (40-60); VENOUS BLOOD GAS PO2 42 mm/Hg (30-55); VENOUS BLOOD PH 7.37 (7.32-7.43)
[2017-10-17] MEDS ORDERED: levoFLOXacin 750 mg in D5W 150 ML BAG IVPB STA (04:45)
[2017-10-17] MEDS ORDERED: levoFLOXacin 750 mg in D5W 750 MG/150 ML BAG IVPB STA (04:49)
[2017-10-17] MEDS ORDERED: levoFLOXacin 750 mg in D5W 750 MG/150 ML BAG IVPB ONE (05:10)
[2017-10-17] MEDS ORDERED: Cholecalciferol 1,000 INTLU TAB PO SCH (10:00)
[2017-10-17] MEDS ORDERED: Glucagon Recombinant 1 mg Inj IM PRN (13:24)
[2017-10-17] MEDS ORDERED: Dextrose 50% SYRINGE Inj (50 ml) IV PRN (13:24)
[2017-10-17] MEDS ORDERED: levoFLOXacin 750 mg in D5W 150 ML BAG IVPB SCH (13:30)
[2017-10-17] MEDS ORDERED: Albuterol-Ipratrop 3 mg / 0.5 (3 ml) UD INH PRN (13:34)
[2017-10-17] MEDS: Enoxaparin 40 mg Syringe SC SCH ×2 (15:17→15:19)
[2017-10-17] MEDS: Insulin Regular 100 units/ml SC SCH ×2 (18:16→22:00)
--- NOTE | 2017-10-18 03:30 | HP ---
HISTORY OF PRESENT ILLNESS: This is a 37-year-old female with history of multiple medical problems presented to the emergency room with shortness of breath and cough and wheezing. The patient was evaluated and she was found to have right middle lobe infiltrate. Subsequently, the patient was admitted for further management. The patient has a history of smoking and she currently lives in a nursing home. The patient was recently in the hospital for similar presentation and she signed against medical advice. The patient was started on IV antibiotics and admitted for further management. PAST MEDICAL HISTORY: Type 2 diabetes mellitus, hypertension, and bronchial asthma. SOCIAL HISTORY: Positive for smoking. Denied EtOH or substance abuse. FAMILY HISTORY: Noncontributory. PHYSICAL EXAMINATION: GENERAL: The patient is in bed, comfortable at the time of this examination. VITAL SIGNS: Blood pressure 154/78, temperature 98.9, respiratory rate 19, and pulse 95. HEENT: Pupils equal and reactive to light. Normal-appearing mucosa of the conjunctivae, oropharynx, and nasal membrane mucosa. NECK: Supple. No JVD. No carotid bruit. No lymph node. No thyromegaly. CHEST AND LUNGS: Bilateral symmetrical expansion. Good air exchange. Scattered rhonchi and no rales. CARDIOVASCULAR: PMI not localized. S1 and S2. No additional sounds. ABDOMEN: Normoactive bowel sounds. No tenderness. No organomegaly. No masses. EXTREMITIES: No cyanosis. No clubbing. No edema. CENTRAL NERVOUS SYSTEM: Alert, awake, and oriented x2 and no neurological deficit could be appreciated. ASSESSMENT: Pneumonia, hypertension, type 2 diabetes mellitus, and mild exacerbation of bronchial asthma. PLAN: Continue current IV antibiotics and resume the patient's antihypertensive medications and continue Accu-Cheks with insulin coverage and resume the patient's diabetes medication. Lei Waddell MD
[2017-10-18 07:39] LABS: HEMOGLOBIN 11.9 g/dL (12.0-16.0); MEAN CELL VOLUME 76.1 fl (81.0-99.0); MEAN CORPUSCULAR HEMOGLOBIN 24.3 pg (27.0-31.0); MEAN CORPUSCULAR HGB CONC 31.9 g/dL (33.0-37.0); RBC 4.89 Mil/uL (3.80-5.20); RED CELL DISTRIBUTION WIDTH 15.9 % (11.5-14.5); WHITE BLOOD COUNT 18.2 K/uL (4.8-10.8)
[2017-10-18 07:45] LABS: BLOOD UREA NITROGEN 14 mg/dl (7-17); CALCIUM 9.5 mg/dL (8.4-10.2); GFR AFRICAN-AMERICAN > 60; GFR NON-AFRICAN AMERICAN > 60
[2017-10-18] MEDS ORDERED: Sodium Chloride 3% for Inhalation 4 ML VIAL.NEB IH PRN (08:02)
[2017-10-18] MEDS: Insulin Regular 100 units/ml SC SCH ×4 (08:49→22:24)
[2017-10-18] MEDS: Enoxaparin 40 mg Syringe SC SCH (08:53)
--- NOTE | 2017-10-18 11:58 | RAD ---
HISTORY: COMPARISON: 10/17/2017. TECHNIQUE: Chest PA and lateral FINDINGS: LINES AND TUBES: None. LUNG AND PLEURA: The lungs are well inflated. There is patchy airspace disease in the right mid lung and lower lobe and bibasilar atelectasis. There is mild pulmonary venous congestion. HEART AND MEDIASTINUM: There is persistent mild cardiomegaly. The hilar and mediastinal contours are within normal limits. SKELETAL STRUCTURES: The bony structures are within normal limits for the patient's age. VISUALIZED UPPER ABDOMEN: Normal. OTHER FINDINGS: None. IMPRESSION: Patchy airspace disease in the right middle lobe and lung base. Findings could represent atelectasis or superimposed pneumonia. Follow-up after medical management is recommended to ensure complete resolution.
[2017-10-18] MEDS: NIFEdipine 30 mg ER Tab PO SCH (16:30)
--- NOTE | 2017-10-18 18:19 | CARD ---
APPROVED REPORT EKG Measurement Heart [id number] <Conclusion> Normal sinus rhythm Possible Left atrial enlargement Borderline ECG
--- NOTE | 2017-10-18 22:51 | PN ---
DAILY PROGRESS NOTE DATE: 10/18/2017 SUBJECTIVE: The patient is seen today 10/18/2017. She is not in any cardiopulmonary distress. The patient still has some cough and shortness of breath. OBJECTIVE: VITAL SIGNS: Blood pressure is 139/81, temperature 98.8, respiratory rate 20, and pulse 78. HEENT: Pupils equal and reactive to light. Normal-appearing mucosa of the conjunctivae, oropharynx, and nasal membrane mucosa. NECK: Supple. No JVD. No carotid bruit. No lymph node. No thyromegaly. CHEST AND LUNGS: Bilateral symmetrical expansion. Good air exchange. No rales. Few scattered rhonchi. CARDIOVASCULAR: PMI not localized. S1 and S2. No additional sounds. ABDOMEN: Normoactive bowel sounds. No tenderness. No organomegaly. No masses. EXTREMITIES: No cyanosis. No clubbing. No edema. CENTRAL NERVOUS SYSTEM: Alert, awake, and oriented x3. No neurological deficit could be appreciated. ASSESSMENT: Pneumonia, hypertension, and type 2 diabetes mellitus. PLAN: Continue current IV antibiotics as well as resume the patient's home medications of hypertension and diabetes. Lei Waddell MD
[2017-10-19 07:42] LABS: HEMOGLOBIN 12.6 g/dL (12.0-16.0); MEAN CELL VOLUME 76.9 fl (81.0-99.0); MEAN CORPUSCULAR HEMOGLOBIN 24.4 pg (27.0-31.0); MEAN CORPUSCULAR HGB CONC 31.7 g/dL (33.0-37.0); RBC 5.18 Mil/uL (3.80-5.20); RED CELL DISTRIBUTION WIDTH 15.8 % (11.5-14.5); WHITE BLOOD COUNT 14.1 K/uL (4.8-10.8)
[2017-10-19 07:48] LABS: BLOOD UREA NITROGEN 15 mg/dl (7-17); CALCIUM 9.5 mg/dL (8.4-10.2); GFR AFRICAN-AMERICAN > 60; GFR NON-AFRICAN AMERICAN > 60
[2017-10-19] MEDS: Insulin Regular 100 units/ml SC SCH ×4 (07:57→23:12)
[2017-10-19] MEDS: Enoxaparin 40 mg Syringe SC SCH ×2 (09:24→09:27)
[2017-10-19] MEDS: NIFEdipine 30 mg ER Tab PO SCH (09:25)
[2017-10-20 00:22] VITALS: O2SAT 97
[2017-10-20] MEDS: Insulin Regular 100 units/ml SC SCH (06:56)
--- NOTE | 2017-10-20 08:05 | CP.PCM.PN ---
Subjective - Date & Time of Evaluation Date of Evaluation: 10/20/17 Time of Evaluation: 08:05 Objective - Vital Signs/Intake and Output Vital Signs (last 24 hours): Temp Pulse Resp BP Pulse Ox 98.2 F 78 18 134/76 97 10/20/17 00:21 10/20/17 00:21 10/20/17 00:21 10/20/17 00:21 10/20/17 00:21 - Medications Medications: Current Medications Albuterol/Ipratropium (Duoneb 3 Mg/0.5 Mg (3 Ml) Ud) 3 ml INH RQ4 PRN PRN Reason: Shortness of Breath Cholecalciferol (Vitamin D) 1,000 intlu PO QWK [facility] Clonidine HCl (Catapres) 0.1 mg PO BID [facility] Last Admin: 10/19/17 17:54 Dose: 0.1 mg Dextrose (Dextrose 50% Inj) 0 ml IV STAT PRN; Protocol PRN Reason: Hypoglycemia Protocol Dextrose (Glutose 15) 0 gm PO ONCE PRN; Protocol PRN Reason: Hypoglycemia Protocol Enoxaparin Sodium (Lovenox) 40 mg SC DAILY [facility] PRN Reason: Protocol Last Admin: 10/19/17 09:27 Dose: Not Given Glucagon (Glucagen Diagnostic Kit) 0 mg IM STAT PRN; Protocol PRN Reason: Hypoglycemia Protocol Levofloxacin/Dextrose (Levaquin 750mg) 750 mg in 150 mls @ 100 mls/hr IVPB DAILY [facility] Last Admin: 10/19/17 09:24 Dose: 100 mls/hr Insulin Human Regular (Humulin R) 0 units SC ACHS [place] PRN Reason: Protocol Last Admin: 10/20/17 06:56 Dose: Not Given Metformin HCl (Glucophage) 1,000 mg PO BID [facility] Last Admin: 10/19/17 17:54 Dose: 1,000 mg Nifedipine (Procardia Xl) 30 mg PO DAILY [facility] Last Admin: 10/19/17 09:25 Dose: 30 mg - Labs Labs: 10/19/17 05:05 10/19/17 05:05
[2017-10-20] MEDS: Enoxaparin 40 mg Syringe SC SCH (09:02)
[2017-10-20] MEDS: NIFEdipine 30 mg ER Tab PO SCH (09:02)
[2017-10-20 09:03] VITALS: BP 142/91; PULSE 85
[2017-10-20 09:08] VITALS: RESP 20; TEMP 97.8
--- NOTE | 2017-10-20 10:15 | CP.PCM.DIS ---
Provider - Provider Date of Admission: 10/17/17 06:16 Attending physician: Lei Waddell MD Time Spent in preparation of Discharge (in minutes): 30 Hospital Course - Lab Results Lab Results: Micro Results 10/17/17 04:30 Blood Blood Culture - Preliminary NO GROWTH AFTER 3 DAYS 10/17/17 03:40 Blood Blood Culture - Preliminary NO GROWTH AFTER 3 DAYS Most Recent Lab Values WBC 14.1 K/uL (4.8-10.8) H 10/19/17 05:05 RBC 5.18 Mil/uL (3.80-5.20) 10/19/17 05:05 Hgb 12.6 g/dL (12.0-16.0) 10/19/17 05:05 Hct 39.8 % (34.0-47.0) 10/19/17 05:05 MCV 76.9 fl (81.0-99.0) L 10/19/17 05:05 MCH 24.4 pg (27.0-31.0) L 10/19/17 05:05 MCHC 31.7 g/dL (33.0-37.0) L 10/19/17 05:05 RDW 15.8 % (11.5-14.5) H 10/19/17 05:05 Plt Count 192 K/uL (130-400) 10/19/17 05:05 MPV 10.7 fl (7.2-11.7) 10/17/17 03:56 Neut % (Auto) 61.5 % (50.0-75.0) 10/17/17 03:56 Lymph % (Auto) 31.2 % (20.0-40.0) 10/17/17 03:56 Greene % (Auto) 5.1 % (0.0-10.0) 10/17/17 03:56 Eos % (Auto) 1.6 % (0.0-4.0) 10/17/17 03:56 Baso % (Auto) 0.6 % (0.0-2.0) 10/17/17 03:56 Neut # (Auto) 7.9 K/uL (1.8-7.0) H 10/17/17 03:56 Lymph # (Auto) 4.0 K/uL (1.0-4.3) 10/17/17 03:56 Greene # (Auto) 0.7 K/uL (0.0-0.8) 10/17/17 03:56 Eos # (Auto) 0.2 K/uL (0.0-0.7) 10/17/17 03:56 Baso # (Auto) 0.1 K/uL (0.0-0.2) 10/17/17 03:56 pO2 42 mm/Hg (30-55) 10/17/17 04:25 VBG pH 7.37 (7.32-7.43) 10/17/17 04:25 VBG pCO2 44 mmHg (40-60) 10/17/17 04:25 VBG HCO3 24.2 mmol/L 10/17/17 04:25 VBG Total CO2 26.8 mmol/L (22-28) 10/17/17 04:25 VBG O2 Sat (Calc) 79.1 % (40-65) H 10/17/17 04:25 VBG Base Excess -0.2 mmol/L (0.0-2.0) L 10/17/17 04:25 VBG Potassium 3.9 mmol/L (3.6-5.2) 10/17/17 04:25 Sodium 138.0 mmol/L (132-148) 10/17/17 04:25 Chloride 108.0 mmol/L (98-107) H 10/17/17 04:25 Glucose 180 mg/dL (65-105) H 10/17/17 04:25 Lactate 1.7 mmol/L (0.7-2.1) 10/17/17 04:25 FiO2 21.0 % 10/17/17 04:25 Sodium 142 mmol/l (132-148) 10/19/17 05:05 Potassium 3.9 MMOL/L (3.6-5.0) 10/19/17 05:05 Chloride 104 mmol/L (98-107) 10/19/17 05:05 Carbon Dioxide 21 mmol/L (22-30) L 10/19/17 05:05 Anion Gap 21 (10-20) H 10/19/17 05:05 BUN 15 mg/dl (7-17) 10/19/17 05:05 Creatinine 0.8 mg/dl (0.7-1.2) 10/19/17 05:05 Est GFR ( Amer) > 60 10/19/17 05:05 Est GFR (Non-Af Amer) > 60 10/19/17 05:05 POC Glucose (mg/dL) 139 mg/dL (65-110) H 10/20/17 05:43 Random Glucose 156 mg/dL (65-105) H 10/19/17 05:05 Calcium 9.5 mg/dL (8.4-10.2) 10/19/17 05:05 Total Bilirubin 0.6 mg/dl (0.2-1.3) 10/17/17 03:56 AST 16 U/L (14-36) 10/17/17 03:56 ALT 35 U/L (9-52) 10/17/17 03:56 Alkaline Phosphatase 67 U/L (38-126) 10/17/17 03:56 Total Protein 7.5 G/DL (6.3-8.2) 10/17/17 03:56 Albumin 4.2 g/dL (3.5-5.0) 10/17/17 03:56 Globulin 3.4 gm/dL (2.2-3.9) 10/17/17 03:56 Albumin/Globulin Ratio 1.2 (1.0-2.1) 10/17/17 03:56 Venous Blood Potassium 3.9 mmol/L (3.6-5.2) 10/17/17 04:25 Ur L.pneumophila Ag Negative (NEGATIVE) 10/18/17 18:00 - Hospital Course Hospital Course: 37 y/o female presents for evaluation of productive cough x 1 week. Associated tactile fever, shortness of breath. Patient states she was admitted on 10/06 for pneumonia, and signed out against medical advice on 10/09 and states she didn 't take the prescribed antibiotics and steroids because they were never sent to her pharmacy. Pt improved with IV Levaquin, WBC trending down. Pt wishes to go home, afebrile , no dyspnea. Stable for discharge with 3 more days of Levaquin and follow up with PMD in one week. Discharge Exam - Head Exam Head Exam: ATRAUMATIC, NORMAL INSPECTION, NORMOCEPHALIC - Eye Exam Eye Exam: EOMI, Normal appearance, PERRL Pupil Exam: NORMAL ACCOMODATION - ENT Exam ENT Exam: Mucous Membranes Moist, Normal Oropharynx - Respiratory Exam Respiratory Exam: Wheezes, NORMAL BREATHING PATTERN. absent: Accessory Muscle Use, Chest Wall Tenderness, Prolonged Expiratory Phase - Cardiovascular Exam Cardiovascular Exam: RRR, +S1, +S2 - GI/Abdominal Exam GI & Abdominal Exam: Normal Bowel Sounds, Soft. absent: Unremarkable - Extremities Exam Extremities exam: normal capillary refill, pedal pulses present - Back Exam Back exam: absent: CVA tenderness (L), CVA tenderness (R) - Neurological Exam Neurological exam: Alert, Oriented x3 - Psychiatric Exam Psychiatric exam: Normal Affect, Normal Mood - Skin Skin Exam: Dry, Warm Discharge Plan - Discharge Medications Prescriptions: cloNIDine [Catapres] 0.1 mg PO Q12H #60 tab Levofloxacin [Levaquin] 500 mg PO DAILY #3 tablet MetFORMIN [glucoPHAGE] 500 mg PO BID #60 tab NIFEdipine ER [Procardia XL] 30 mg PO DAILY #30 ter - Follow Up Plan Condition: FAIR Disposition: HOME/ ROUTINE Additional Instructions: FOLLOW UP DR. WADDELL ONE WEEK.
--- NOTE | 2017-10-22 06:54 | PN ---
DAILY PROGRESS NOTE DATE: 10/19/2017 SUBJECTIVE: The patient is seen today 10/19/2017. She is not in any cardiopulmonary distress. The patient still has some cough and wheezing. OBJECTIVE: VITAL SIGNS: Blood pressure 124/80, temperature 97.9, respiratory rate 20, and pulse 73. HEENT: Pupils equal and reactive to light. Normal-appearing mucosa of the conjunctivae, oropharynx, and nasal membrane mucosa. NECK: Supple. No JVD. No carotid bruit. No lymph node. No thyromegaly. CHEST AND LUNGS: Bilateral symmetrical expansion, good air exchange. No rales. No rhonchi. CARDIOVASCULAR: PMI not localized, S1 and S2. No additional sounds. ABDOMEN: Normoactive bowel sounds. No tenderness. No organomegaly. No masses. EXTREMITIES: No cyanosis. No clubbing. No edema. CENTRAL NERVOUS SYSTEM: Alert, awake, and oriented x2. No neurological deficit could be appreciated. ASSESSMENT: Hypertension, type 2 diabetes mellitus, pneumonia, and history of bronchial asthma. PLAN: Continue current IV antibiotics and bronchodilators. Continue current antihypertensive medications and plan to discharge the patient once symptoms improve as the patient left the hospital and came back for the same reason. Lei Waddell MD
== END 2017-10-20 13:30 | disposition home or self-care (01) | DRG 90 ==
LOC: H.ER 23:14 → H.ERHOLD 10-17 06:16 → H.MEDSURG1 10-17 07:23
PROVIDERS: ADMIT Internal Medicine; ATTEND Internal Medicine
DX: J18.9 Pneumonia, unspecified organism (principal); J45.901 Unspecified asthma with (acute) exacerbation; I11.9 Hypertensive heart disease without heart failure; E11.9 Type 2 diabetes mellitus without complications; K29.70 Gastritis, unspecified, without bleeding; Z87.891 Personal history of nicotine dependence; Z79.84 Long term (current) use of oral hypoglycemic drugs; Z59.0 Homelessness; Z91.013 Allergy to seafood

== ENCOUNTER 2017-10-26 22:24 | Emergency (ER) | payer MEDICAID ==
[2017-10-26 22:24] VITALS: BMI 39.4
[2017-10-26 22:52] VITALS: TEMP 98
[2017-10-27] MEDS ORDERED: Albuterol-Ipratrop 3 mg / 0.5 (3 ml) UD IH STA (01:41)
--- NOTE | 2017-10-27 02:50 | ED PDOC ---
Syncope/Near Syncope/Dizziness Time Seen by Provider: 10/27/17 00:36 Chief Complaint (Nursing): Dizziness/Lightheaded Chief Complaint (Provider): Dizziness History Per: Patient History/Exam Limitations: no limitations Onset/Duration Of Symptoms: Hrs Current Symptoms Are (Timing): Still Present Activity At Onset Of Symptoms: Change In Head Position Additional Complaint(s): 37yo female with history of asthma, presents to ED with complaints of dizziness which started 2 hours ago. Patient states she went to [employer] and felt dizzy , describing it as a room spinning sesnation. patient states her symptom are worse with changes in head position and reports she has never had such symptoms before. She also reports midsternal chest pain for the past 2 days with shortness of breath (states she is always shortness of breath due to asthma). Otherwise: (-) lightheadedness, (-) trauma, (-) headache, (-) tinnitus, (-) hearing loss, (-) chest pain, (-) dyspnea, (-) fever, (-) vomiting, (-) diarrhea , (-) syncope, (-) GI bleeding. Of note, patient was recently admitted due to pneumonia. Past Medical History Reviewed: Historical Data, Nursing Documentation, Vital Signs Vital Signs: Last Vital Signs Temp 98.0 F 10/26/17 22:51 Pulse 88 10/26/17 22:51 Resp 16 10/26/17 22:51 BP 153/94 H 10/26/17 22:51 Pulse Ox 100 10/26/17 22:51 - Medical History PMH: Asthma, Diabetes, Gastritis, HTN, Pneumonia Denies: HIV, Hyperthyroidism, Migraine, Chronic Kidney Disease - Family History Family History: States: Unknown Family Hx - Home Medications Home Medications: Ambulatory Orders Medication Instructions Recorded Cholecalciferol [Vitamin D 1000 IU] 1 tab PO QWK 10/17/17 Levofloxacin [Levaquin] 500 mg PO DAILY #3 tablet 10/20/17 MetFORMIN [glucoPHAGE] 500 mg PO BID #60 tab 10/20/17 NIFEdipine ER [Procardia XL] 30 mg PO DAILY #30 ter 10/20/17 cloNIDine [Catapres] 0.1 mg PO Q12H #60 tab 10/20/17 - Allergies Allergies/Adverse Reactions: Allergies Allergy/AdvReac Type Severity Reaction Status Date / Time Seafood Allergy SHORTNESS Uncoded 10/26/17 22:51 OF BREATH Review of Systems ROS Statement: Except As Marked, All Systems Reviewed And Found Negative Constitutional: Negative for: Fever, Chills Cardiovascular: Positive for: Chest Pain Respiratory: Positive for: Shortness of Breath Gastrointestinal: Negative for: Nausea, Vomiting, Abdominal Pain Neurological: Positive for: Dizziness. Negative for: Weakness Physical Exam - Reviewed Nursing Documentation Reviewed: Yes Vital Signs Reviewed: Yes - Physical Exam Comments: GENERALIZED APPEARANCE:Patient is sleeping but arousable, oriented x3 in no acute distress. SKIN: Warm, dry; (-) cyanosis. HEAD: (-) scalp swelling or tenderness. EYES: (-) conjunctival pallor. ENMT: Mucous membranes dry. NECK: (-) tenderness, (-) stiffness, (-) lymphadenopathy. CHEST AND RESPIRATORY: (-) rales, (-) rhonchi, (+) faint expiratory wheeze to bilateral lung bases HEART AND CARDIOVASCULAR: (-) irregularity; (-) murmur, (-) gallop. ABDOMEN AND GI: Soft; (-) distention, (-) tenderness, (-) rebound, (-) guarding , (-) palpable masses, (-) flank tenderness. EXTREMITIES: (-) deformity; (-) edema. Distal pulses: present. NEURO AND PSYCH: Mental status as above. molder hand: (-) nystagmus; Pupils EOMI, (-) facial asymmetry; (-) dysarthria; tongue and uvula midline. Strength symmetric. Gait: unable to test as patient states she felt too dizzy to stand and walk. - Laboratory Results Result Diagrams: 10/27/17 04:51 10/27/17 04:51 - ECG O2 Sat by Pulse Oximetry: 100 (RA) Pulse Ox Interpretation: Normal Medical Decision Making Medical Decision Making: Impression: Dizziness, rule out PE, OR or ACS Plan: -- Labs -- Chest x-ray -- CT Head w/o contrast -- IV Fluids -- Duoneb 3ml INH On re-evaluation, patient sleepig comfortably in bed in no acute distress, breathing easy and unlabored. CXR: minimal change from most recent study. CT head w/o contrast : FINDINGS: Brain: No intracranial hemorrhage. No mass. No definite edema. Ventricles: No hydrocephalus. Bones/joints: No acute fracture. Soft tissues: Unremarkable. Lymph nodes: Probable intraparotid lymph node. Sinuses: Scattered minimal to mild mucosal thickening. Small fluid within right maxillary sinus. Minimal fluid within sphenoid sinuses. Mastoid air cells: No mastoid effusion. Orbits: Unremarkable as visualized. IMPRESSION: 1. No definite acute intracranial abnormality. 2. Sinus disease. 3. Incidental/non-acute findings are described above. Dictated and Authenticated by: Kael Pena MD 10/27/2017 4:18 AM Eastern Time ([place] & [place]) Labs reviewed : trop (-), BNP (-), Ddimer (-). On re-evaluation, patient reports improvement of symptoms, denies any dizziness , SOB or CP at this time. On exam, patient remains AAOx3, in no acute distress. Lungs clear to auscultation, cardiac RRR, abdomen soft, non-tender, repeat neuro exam shows no focal findings. Diagnostic results d/w the patient in great detail. Based on history, exam and diagnostic results, plan will be for outpatient follow up. Patient instructed to follow-up with the clinic in 1-2 days without fail. Return to the emergency room at any time for any new or worsening symptoms. Patient states he/she fully agrees with and understands discharge instructions. States that he/she agrees with the plan and disposition. Verbalized and repeated discharge instructions and plan. I have given the patient opportunity to ask any additional questions. Scribe Attestation: Documented by Mirtha Gleason acting as a scribe for JAMAAL Paniagua. Provider Attestation: All medical record entries made by the Scribe were at my direction and personally dictated by me. I have reviewed the chart and agree that the record accurately reflects my personal performance of the history, physical exam, medical decision making, and the department course for this patient. I have also personally directed, reviewed, and agree with the discharge instructions and disposition. Disposition - Clinical Impression Clinical Impression: Dizziness, Asthma - Patient ED Disposition Is Patient to be Admitted: No Counseled Patient/Family Regarding: Studies Performed, Diagnosis, Need For Followup - Disposition Referrals: [facility] [Outside] Disposition: Routine/Home Disposition Time: 06:00 Condition: STABLE Instructions: Asthma in Adults, Dizziness, Nonvertigo, (DC) Forms: [employer] (Syrian) - PA / HEALTH SERVICE COORDINATOR / Resident Statement MD/DO has reviewed & agrees with the documentation as recorded.
--- NOTE | 2017-10-27 04:18 | CT ---
EXAM: CT Head Without Intravenous Contrast CLINICAL HISTORY: 37 years old, female; Pain; Headache; Migraine; Aura effect not specified; Other: ? ; Additional info: Dizziness TECHNIQUE: Axial computed tomography images of the head/brain without intravenous contrast. All CT scans at this facility use one or more dose reduction techniques, viz.: automated exposure control; ma/kV adjustment per patient size (including targeted exams where dose is matched to indication; i.e. head); or iterative reconstruction technique. Coronal and sagittal reformatted images were created and reviewed. COMPARISON: No relevant prior studies available. FINDINGS: Brain: No intracranial hemorrhage. No mass. No definite edema. Ventricles: No hydrocephalus. Bones/joints: No acute fracture. Soft tissues: Unremarkable. Lymph nodes: Probable intraparotid lymph node. Sinuses: Scattered minimal to mild mucosal thickening. Small fluid within right maxillary sinus. Minimal fluid within sphenoid sinuses. Mastoid air cells: No mastoid effusion. Orbits: Unremarkable as visualized. IMPRESSION: 1. No definite acute intracranial abnormality. 2. Sinus disease. 3. Incidental/non-acute findings are described above.
[2017-10-27] MEDS ORDERED: Sodium Chloride 0.9% 500 ML IV STA (04:27)
[2017-10-27] MEDS ORDERED: Sodium Chloride 0.9% 1,000 ML IV STA (04:28)
[2017-10-27] MEDS: Sodium Chloride 0.9% 500 ML IV SCH ×2 (04:30→04:31)
[2017-10-27] MEDS ORDERED: Albuterol-Ipratrop 3 mg / 0.5 (3 ml) UD ONE (04:36)
[2017-10-27 04:54] LABS: BASO # 0.2 K/uL (0.0-0.2); BASO % 1.9 % (0.0-2.0); EOS # 0.2 K/uL (0.0-0.7); EOS % 2.3 % (0.0-4.0); HEMOGLOBIN 11.9 g/dL (12.0-16.0); LYMPH # 3.4 K/uL (1.0-4.3); LYMPH % 34.3 % (20.0-40.0); MEAN CELL VOLUME 77.1 fl (81.0-99.0); MEAN CORPUSCULAR HEMOGLOBIN 24.8 pg (27.0-31.0); MEAN CORPUSCULAR HGB CONC 32.2 g/dL (33.0-37.0); MEAN PLATELET VOLUME 9.7 fl (7.2-11.7); MONO # 0.7 K/uL (0.0-0.8); MONO % 6.8 % (0.0-10.0); NEUT # 5.4 K/uL (1.8-7.0); NEUT % 54.7 % (50.0-75.0); NRBC % 0.1 % (0.0-0.0); RBC 4.8 Mil/uL (3.80-5.20); RED CELL DISTRIBUTION WIDTH 16.5 % (11.5-14.5); WHITE BLOOD COUNT 9.9 K/uL (4.8-10.8)
[2017-10-27 04:57] VITALS: RESP 18
[2017-10-27 05:17] LABS: B-TYPE NATRIURETIC PEPTIDE 63.7 pg/ml (0-450)
[2017-10-27 05:19] LABS: ALB/GLOB RATIO 1.2 (1.0-2.1); ALBUMIN 3.8 g/dL (3.5-5.0); ALT/SGPT 27 U/L (9-52); AST/SGOT 23 U/L (14-36); BLOOD UREA NITROGEN 12 mg/dl (7-17); CALCIUM 9.4 mg/dL (8.4-10.2); GFR AFRICAN-AMERICAN > 60; GFR NON-AFRICAN AMERICAN > 60
[2017-10-27 08:06] VITALS: BP 154/73; PULSE 82; O2SAT 99
--- NOTE | 2017-10-27 09:34 | CARD ---
APPROVED REPORT EKG Measurement Heart [id number] <Conclusion> Normal sinus rhythm Biatrial enlargement Left ventricular hypertrophy Nonspecific T wave abnormality Abnormal ECG
--- NOTE | 2017-10-27 11:26 | RAD ---
HISTORY: dizziness COMPARISON: 10/18/2017 FINDINGS: LUNGS: Bilateral interstitial changes, new since prior exam. PLEURA: No significant pleural effusion identified, no pneumothorax apparent. CARDIOVASCULAR: Normal. OSSEOUS STRUCTURES: No significant abnormalities. VISUALIZED UPPER ABDOMEN: Normal. OTHER FINDINGS: None. IMPRESSION: Bilateral interstitial changes, new since prior exam.
== END 2017-10-27 06:58 | disposition home or self-care (01) ==
LOC: H.ER 22:24
DX: R42 Dizziness and giddiness (principal); J45.909 Unspecified asthma, uncomplicated; E11.9 Type 2 diabetes mellitus without complications; I11.9 Hypertensive heart disease without heart failure; Z79.84 Long term (current) use of oral hypoglycemic drugs; I51.7 Cardiomegaly
CPT/HCPCS: 70450; 71045; 80053; 81025; 82948; 83880; 84484; 85025; 85378; 93005; 94640; 96360; 99285; J7040

== ENCOUNTER 2017-10-28 01:27 | Emergency (ER) | payer MEDICAID ==
[2017-10-28 01:27] VITALS: BMI 39.4
[2017-10-28 01:41] VITALS: RESP 16
--- NOTE | 2017-10-28 03:03 | ED PDOC ---
Lower Extremity Pain/Injury Time Seen by Provider: 10/28/17 01:59 Chief Complaint (Nursing): Syncope Chief Complaint (Provider): foot pain History Per: Patient History/Exam Limitations: no limitations Onset/Duration Of Symptoms: Days (45) Current Symptoms Are (Timing): Still Present Severity: None Past Medical History Reviewed: Historical Data, Nursing Documentation, Vital Signs Vital Signs: Last Vital Signs Temp 98.5 F 10/28/17 01:36 Pulse 107 H 10/28/17 01:36 Resp 16 10/28/17 01:36 BP 189/140 H 10/28/17 01:36 Pulse Ox 99 10/28/17 01:36 - Medical History PMH: Asthma, Diabetes, Fractures (foot fracture), Gastritis, HTN, Pneumonia Denies: HIV, Hyperthyroidism, Migraine, Chronic Kidney Disease - Family History Family History: States: Unknown Family Hx - Home Medications Home Medications: Ambulatory Orders Medication Instructions Recorded Cholecalciferol [Vitamin D 1000 IU] 1 tab PO QWK 10/17/17 Levofloxacin [Levaquin] 500 mg PO DAILY #3 tablet 10/20/17 MetFORMIN [glucoPHAGE] 500 mg PO BID #60 tab 10/20/17 NIFEdipine ER [Procardia XL] 30 mg PO DAILY #30 ter 10/20/17 cloNIDine [Catapres] 0.1 mg PO Q12H #60 tab 10/20/17 Ibuprofen [Motrin Tab] 1 tab PO QID #40 tab 10/28/17 - Allergies Allergies/Adverse Reactions: Allergies Allergy/AdvReac Type Severity Reaction Status Date / Time Seafood Allergy SHORTNESS Uncoded 10/26/17 22:51 OF BREATH Review of Systems ROS Statement: Except As Marked, All Systems Reviewed And Found Negative Musculoskeletal: Positive for: Foot Pain Physical Exam - Reviewed Nursing Documentation Reviewed: Yes Vital Signs Reviewed: Yes - Physical Exam Appears: Positive for: Well Head Exam: Positive for: ATRAUMATIC, NORMAL INSPECTION, NORMOCEPHALIC Skin: Positive for: Normal Color Neck: Positive for: Normal, Painless ROM, Supple. Negative for: Decreased ROM Cardiovascular/Chest: Positive for: Regular Rate, Rhythm, Chest Non Tender. Negative for: Edema, Gallop, Bradycardia, Tachycardia, Friction Rub Respiratory: Positive for: Normal Breath Sounds. Negative for: Decreased Breath Sounds, Accessory Muscle Use Pulses-Carotid (L): 2+ Pulses-Carotid (R): 2+ Extremity: Positive for: Normal ROM, Tenderness. Negative for: Pedal Edema - ECG O2 Sat by Pulse Oximetry: 99 Medical Decision Making Medical Decision Making: pt lost her surgical boot and does not know what to take for her pain as she forgot new shoe issued NSAID rx Disposition - Clinical Impression Clinical Impression: Fracture of foot - Patient ED Disposition Is Patient to be Admitted: No Doctor Will See Patient In The: Office Counseled Patient/Family Regarding: Diagnosis, Need For Followup, Rx Given - Disposition Referrals: Lei Waddell MD [Primary Care Provider] - Jyothi Boles DPM [Resident] - Disposition: Routine/Home Disposition Time: 03:04 Condition: GOOD Prescriptions: Ibuprofen [Motrin Tab] 1 tab PO QID #40 tab Instructions: Foot Fracture (DC) Forms: [employer] (Malay)
[2017-10-28 03:13] VITALS: BP 138/89; PULSE 97; TEMP 97.9; O2SAT 97
== END 2017-10-28 03:31 | disposition home or self-care (01) ==
LOC: H.ER 01:27
DX: S92.909A Unspecified fracture of unspecified foot, initial encounter for closed fracture (principal); E11.9 Type 2 diabetes mellitus without complications; J45.909 Unspecified asthma, uncomplicated; I10 Essential (primary) hypertension; Z79.84 Long term (current) use of oral hypoglycemic drugs

== ENCOUNTER 2017-11-13 19:46 | Emergency (ER) | payer MEDICAID ==
[2017-11-13 19:47] VITALS: BMI 39.4
[2017-11-13] MEDS ORDERED: Sodium Chloride 0.9% 1,000 ML IV STA (20:28)
[2017-11-13 21:02] LABS: BASO # 0.1 K/uL (0.0-0.2); BASO % 0.5 % (0.0-2.0); EOS # 0.2 K/uL (0.0-0.7); EOS % 1.7 % (0.0-4.0); HEMOGLOBIN 12.1 g/dL (12.0-16.0); LYMPH # 2.9 K/uL (1.0-4.3); LYMPH % 23.8 % (20.0-40.0); MEAN CELL VOLUME 76.3 fl (81.0-99.0); MEAN CORPUSCULAR HEMOGLOBIN 24.1 pg (27.0-31.0); MEAN CORPUSCULAR HGB CONC 31.6 g/dL (33.0-37.0); MEAN PLATELET VOLUME 9.6 fl (7.2-11.7); MONO # 0.8 K/uL (0.0-0.8); NEUT # 8.1 K/uL (1.8-7.0); RBC 5.01 Mil/uL (3.80-5.20); RED CELL DISTRIBUTION WIDTH 16.4 % (11.5-14.5); WHITE BLOOD COUNT 12.1 K/uL (4.8-10.8)
[2017-11-13 21:17] LABS: SQUAMOUS EPITHIAL 2 /hpf (0-5); URINE BILIRUBIN NEGATIVE (NEGATIVE); URINE BLOOD MODERATE (NEGATIVE); URINE CLARITY CLEAR (Clear); URINE COLOR STRAW (YELLOW); URINE GLUCOSE (UA) >=500 mg/dL (Normal); URINE LEUKOCYTE ESTERASE NEG Leu/uL (Negative); URINE PROTEIN 30 mg/dL (NEGATIVE); URINE UROBILINOGEN 0.2-1.0 mg/dL (0.2-1.0)
[2017-11-13 21:45] LABS: ALB/GLOB RATIO 1.3 (1.0-2.1); ALBUMIN 4.4 g/dL (3.5-5.0); ALT/SGPT 31 U/L (9-52); AST/SGOT 22 U/L (14-36); BLOOD UREA NITROGEN 15 mg/dl (7-17); CALCIUM 9.1 mg/dL (8.4-10.2); GFR AFRICAN-AMERICAN > 60; GFR NON-AFRICAN AMERICAN > 60
--- NOTE | 2017-11-13 21:53 | ED PDOC ---
HPI: Headache Time Seen by Provider: 11/13/17 20:05 Chief Complaint (Nursing): Headache Chief Complaint (Provider): Headache History Per: Patient History/Exam Limitations: no limitations Onset/Duration Of Symptoms: Hrs (x2) Current Symptoms Are (Timing): Still Present Associated Symptoms: Nausea Additional History Per: Patient Additional Complaint(s): 37 year old female, with medical history of diabetes and hypertension, presented to ED with complaints of progressively worsening headache and nausea with onset of 2 hours. Patient reports vomiting x1 episode and indicates it is not a thunderclap headache. She denies fever, chills, allergies, or history of headaches. PMD: Lei Waddell Past Medical History Reviewed: Historical Data, Nursing Documentation, Vital Signs Vital Signs: Last Vital Signs Temp 99.3 F 11/13/17 19:59 Pulse 92 H 11/13/17 20:55 Resp 16 11/13/17 19:59 BP 153/85 H 11/13/17 20:55 Pulse Ox 95 11/13/17 19:59 - Medical History PMH: Asthma, Diabetes, Fractures (foot fracture), Gastritis, HTN, Pneumonia Denies: HIV, Hyperthyroidism, Migraine, Chronic Kidney Disease - Surgical History Surgical History: No Surg Hx - Family History Family History: States: Unknown Family Hx - Social History Current smoker - smoking cessation education provided: Yes (<10 cigarettes daily ) Alcohol: None Drugs: Denies - Home Medications Home Medications: Ambulatory Orders Medication Instructions Recorded Cholecalciferol [Vitamin D 1000 IU] 1 tab PO QWK 10/17/17 Levofloxacin [Levaquin] 500 mg PO DAILY #3 tablet 10/20/17 MetFORMIN [glucoPHAGE] 500 mg PO BID #60 tab 10/20/17 NIFEdipine ER [Procardia XL] 30 mg PO DAILY #30 ter 10/20/17 cloNIDine [Catapres] 0.1 mg PO Q12H #60 tab 10/20/17 Ibuprofen [Motrin Tab] 1 tab PO QID #40 tab 10/28/17 Amoxicillin/Clavulanate [Augmentin 1 tab PO BID #14 tab 11/13/17 875 MG-125 MG] - Allergies Allergies/Adverse Reactions: Allergies Allergy/AdvReac Type Severity Reaction Status Date / Time Seafood Allergy SHORTNESS Uncoded 11/13/17 19:59 OF BREATH Review of Systems ROS Statement: Except As Marked, All Systems Reviewed And Found Negative Constitutional: Negative for: Fever, Chills Gastrointestinal: Positive for: Nausea, Vomiting (x1) Neurological: Positive for: Headache (progressive not thunder clap episode) Physical Exam - Reviewed Nursing Documentation Reviewed: Yes Vital Signs Reviewed: Yes - Physical Exam Appears: Positive for: Non-toxic, No Acute Distress Head Exam: Positive for: ATRAUMATIC, NORMAL INSPECTION, NORMOCEPHALIC Skin: Positive for: Normal Color, Warm, Dry Eye Exam: Positive for: Normal appearance, EOMI, PERRL Neck: Positive for: Normal, Painless ROM Cardiovascular/Chest: Positive for: Regular Rate, Rhythm. Negative for: Murmur Respiratory: Positive for: Normal Breath Sounds. Negative for: Wheezing, Respiratory Distress Gastrointestinal/Abdominal: Positive for: Normal Exam, Soft. Negative for: Tenderness Back: Positive for: Normal Inspection. Negative for: L CVA Tenderness, R CVA Tenderness, Vertebral Tenderness Extremity: Positive for: Normal ROM (upper/lower). Negative for: Deformity, Swelling Neurologic/Psych: Positive for: Alert, Oriented (x3), Gait (steady). Negative for: Motor/Sensory Deficits, Aphasia, Facial Droop - Laboratory Results Result Diagrams: 11/13/17 20:40 11/13/17 20:40 - ECG O2 Sat by Pulse Oximetry: 95 (RA) Pulse Ox Interpretation: Normal Medical Decision Making Medical Decision Making: Initial Impression: Headache Initial Plan: Head CT w/o contrast CMP CBC Insulin 2 units SC Sodium chloride 1000mL IV Reglan 10 mg IV Urine C&S Urinalysis -Given first headache will order head CT head ct no acute findings pt has been sleeping throughout ER stay pt tolerated po and feels improved stable for dc and outpt follwo up Scribe Attestation: Documented by Kb Ramirez acting as a scribe for Bo Olvera MD. Provider Scribe Attestation: All medical record entries made by the Scribe were at my direction and personally dictated by me. I have reviewed the chart and agree that the record accurately reflects my personal performance of the history, physical exam, medical decision making, and the department course for this patient. I have also personally directed, reviewed, and agree with the discharge instructions and disposition. Disposition - Clinical Impression Clinical Impression: Acute headache, Sinusitis - Patient ED Disposition Is Patient to be Admitted: No Counseled Patient/Family Regarding: Studies Performed, Diagnosis, Need For Followup - Disposition Referrals: [facility] [Outside] [facility] [Outside] Disposition: Routine/Home Disposition Time: 22:00 Condition: IMPROVED Additional Instructions: follow up with your primary doctor in 1-2 days return to the ED with any worsening or concerning symptoms Prescriptions: Amoxicillin/Clavulanate [Augmentin 875 MG-125 MG] 1 tab PO BID #14 tab Instructions: Sinus Headache (DC), Acute Headache (ED) Forms: [employer] (Pashto)
[2017-11-13] MEDS ORDERED: Insulin Regular 100 units/ml SC STA (21:54)
--- NOTE | 2017-11-13 23:17 | CT ---
EXAM: CT Head Without Intravenous Contrast EXAM DATE/TIME: 11/13/2017 9:22 PM CLINICAL HISTORY: 37 years old, female; Pain; Headache; Headache not specified TECHNIQUE: Axial computed tomography images of the head/brain without intravenous contrast. All CT scans at this facility use one or more dose reduction techniques, viz.: automated exposure control; ma/kV adjustment per patient size (including targeted exams where dose is matched to indication; i.e. head); or iterative reconstruction technique. Coronal and sagittal reformatted images were created and reviewed. COMPARISON: Prior head CT of 2017-10-27 FINDINGS: LIMITATIONS: Mild streak/motion artifact. BRAIN: No acute abnormality identified. No acute hemorrhage seen within the brain. No acute extra-axial fluid collections visualized. No evidence of significant mass effect within the brain. VENTRICLES: No evidence of significant hydrocephalus. BONES/JOINTS: No acute fractures or other acute bony abnormality noted. SOFT TISSUES: No acute abnormality of the visualized soft tissues is seen. SINUSES: Fluid in the left maxillary sinus, compatible with acute sinusitis. There is also mucosal thickening in the bilateral sphenoid and right maxillary sinuses. MASTOID AIR CELLS: Mastoid air cells appear clear. IMPRESSION: - No acute findings seen within the brain. - Acute maxillary sinusitis. - See above for remaining findings.
[2017-11-13 23:35] VITALS: BP 167/99; PULSE 96; RESP 18; TEMP 98.9
[2017-11-14 16:48] VITALS: O2SAT 95
== END 2017-11-13 23:37 | disposition home or self-care (01) ==
LOC: H.ER 19:46
DX: R51 Headache (principal); J01.00 Acute maxillary sinusitis, unspecified; E11.9 Type 2 diabetes mellitus without complications; I10 Essential (primary) hypertension; J45.909 Unspecified asthma, uncomplicated; Z79.4 Long term (current) use of insulin
CPT/HCPCS: 70450; 80053; 81003; 81025; 85025; 87086; 96372; 96374; 99285; J2765; J7040

== ENCOUNTER 2017-11-14 23:54 | Emergency (ER) | payer MEDICAID ==
[2017-11-14 23:55] VITALS: BMI 39.4
[2017-11-15 00:30] VITALS: O2SAT 96
[2017-11-15] MEDS ORDERED: Sodium Chloride 0.9% 1,000 ML IV STA (00:31)
--- NOTE | 2017-11-15 00:36 | ED PDOC ---
HPI: General Adult Time Seen by Provider: 11/15/17 00:26 Chief Complaint (Nursing): Chest Pain Chief Complaint (Provider): throat pain, fever, bodyaches History Per: Patient History/Exam Limitations: no limitations Onset/Duration Of Symptoms: Hrs Have you had recent travel within the past 21 days to any of the following countries: [place], [place], [place] or [place]?: No Current Symptoms Are (Timing): Still Present Additional Complaint(s): Hx of obesity, HTN, DM presenting with sore throat, fever x 2 days, was in ER yesterday with dizziness, throat pain, had negative workup and was discharged with augmentin, patient states she only took one dose and no other medications. States she is still feeling dizzy with throat pain, states it extends down to her chest and and abdomen as well. States it is hard for her to swallow and has no appetite. Complaining of bodyaches, also in her feet as well. Past Medical History Reviewed: Historical Data, Nursing Documentation, Vital Signs Vital Signs: Last Vital Signs Temp 99.2 F 11/15/17 04:03 Pulse 93 H 11/15/17 05:24 Resp 18 11/15/17 05:24 BP 153/97 H 11/15/17 05:24 Pulse Ox 96 11/15/17 05:24 - Medical History PMH: Asthma, Diabetes, Fractures (foot fracture), Gastritis, HTN, Pneumonia Denies: HIV, Hyperthyroidism, Migraine, Chronic Kidney Disease - Family History Family History: States: Unknown Family Hx - Home Medications Home Medications: Ambulatory Orders Medication Instructions Recorded Cholecalciferol [Vitamin D 1000 IU] 1 tab PO QWK 10/17/17 Levofloxacin [Levaquin] 500 mg PO DAILY #3 tablet 10/20/17 MetFORMIN [glucoPHAGE] 500 mg PO BID #60 tab 10/20/17 NIFEdipine ER [Procardia XL] 30 mg PO DAILY #30 ter 10/20/17 cloNIDine [Catapres] 0.1 mg PO Q12H #60 tab 10/20/17 Ibuprofen [Motrin Tab] 1 tab PO QID #40 tab 10/28/17 Amoxicillin/Clavulanate [Augmentin 1 tab PO BID #14 tab 11/13/17 875 MG-125 MG] - Allergies Allergies/Adverse Reactions: Allergies Allergy/AdvReac Type Severity Reaction Status Date / Time Seafood Allergy SHORTNESS Uncoded 11/13/17 19:59 OF BREATH Review of Systems ROS Statement: Except As Marked, All Systems Reviewed And Found Negative Constitutional: Positive for: Fever ENT: Positive for: Throat Pain Cardiovascular: Positive for: Chest Pain Neurological: Positive for: Dizziness Physical Exam - Reviewed Nursing Documentation Reviewed: Yes Vital Signs Reviewed: Yes - Physical Exam Appears: Positive for: Well, Non-toxic, No Acute Distress Head Exam: Positive for: ATRAUMATIC, NORMAL INSPECTION, NORMOCEPHALIC Skin: Positive for: Normal Color, Warm, DRY Eye Exam: Positive for: EOMI, Normal appearance, PERRL ENT: Positive for: Normal ENT Inspection, Pharynx Is (normal, no exudate) Neck: Positive for: Normal, Painless ROM Cardiovascular/Chest: Positive for: Regular Rate, Rhythm Respiratory: Positive for: CNT, Normal Breath Sounds Gastrointestinal/Abdominal: Positive for: Normal Exam, Soft Back: Positive for: Normal Inspection Extremity: Positive for: Normal ROM Neurologic/Psych: Positive for: Alert, Oriented - Laboratory Results Result Diagrams: 11/15/17 01:31 11/15/17 01:31 - ECG O2 Sat by Pulse Oximetry: 96 Pulse Ox Interpretation: Normal Medical Decision Making Medical Decision MakinAM A/P: Hx of HTN, DM presenting with throat pain, dizziness -patient likely has viral pharyngitis v. strep causing symptoms -will treat w/ toradol, solumedrol -will recheck labs given tachyardia, low grade oral temp of 100.1 -will reeval 530AM -Patient has elevated white count, but has only taken on dose of ABx -patient has been snoring in ER since arrival, has repeatedly removed herself from monitor -Vitals now improved, patient feeling better, well appearing, will discharge -Followup provided, return precautions given. Disposition - Clinical Impression Clinical Impression: Pharyngitis - Patient ED Disposition Is Patient to be Admitted: No - Disposition Referrals: Lei Waddell MD [Primary Care Provider] - Disposition: Routine/Home Disposition Time: 05:46 Condition: IMPROVED Instructions: Sore Throat in Adults Forms: [employer] [employer] (Slovak)
[2017-11-15 01:37] LABS: BASO # 0.2 K/uL (0.0-0.2); BASO % 1.1 % (0.0-2.0); EOS # 0.1 K/uL (0.0-0.7); EOS % 0.6 % (0.0-4.0); HEMOGLOBIN 12.3 g/dL (12.0-16.0); LYMPH # 2.9 K/uL (1.0-4.3); LYMPH % 17.3 % (20.0-40.0); MEAN CELL VOLUME 76.7 fl (81.0-99.0); MEAN CORPUSCULAR HEMOGLOBIN 24.2 pg (27.0-31.0); MEAN CORPUSCULAR HGB CONC 31.6 g/dL (33.0-37.0); MEAN PLATELET VOLUME 9.8 fl (7.2-11.7); MONO # 1.4 K/uL (0.0-0.8); MONO % 8.4 % (0.0-10.0); NEUT # 12.3 K/uL (1.8-7.0); NEUT % 72.6 % (50.0-75.0); RBC 5.07 Mil/uL (3.80-5.20); RED CELL DISTRIBUTION WIDTH 17.3 % (11.5-14.5); WHITE BLOOD COUNT 16.9 K/uL (4.8-10.8)
[2017-11-15 02:15] LABS: BLOOD UREA NITROGEN 11 mg/dl (7-17); GFR AFRICAN-AMERICAN > 60; GFR NON-AFRICAN AMERICAN > 60
[2017-11-15 04:04] VITALS: TEMP 99.2
[2017-11-15 04:05] VITALS: RESP 18
[2017-11-15 05:25] VITALS: BP 153/97; PULSE 93
== END 2017-11-15 06:08 | disposition home or self-care (01) ==
LOC: H.ER 23:54
DX: J02.9 Acute pharyngitis, unspecified (principal); E11.9 Type 2 diabetes mellitus without complications; I10 Essential (primary) hypertension; J45.909 Unspecified asthma, uncomplicated; Z79.84 Long term (current) use of oral hypoglycemic drugs
CPT/HCPCS: 80048; 83605; 85025; 96361; 96374; 96375; 99284; J1885; J2930; J7040

== ENCOUNTER 2017-11-18 02:10 | Emergency (ER) | payer MEDICAID ==
[2017-11-18 02:11] VITALS: BMI 39.4
[2017-11-18 02:33] VITALS: BP 158/87; PULSE 107; RESP 18; TEMP 98.3; O2SAT 98
--- NOTE | 2017-11-18 03:05 | ED PDOC ---
Lower Extremity Pain/Injury Time Seen by Provider: 11/18/17 02:29 Chief Complaint (Nursing): Lower Extremity Problem/Injury History Per: Patient Additional Complaint(s): Pt. c/o atraumatic L foot pain x 1 week. Pt. reports a hx of L foot fracture which did not require surgery. Pain is localized to the L heel. Denies numbness , tingling, rash, fever. Past Medical History Reviewed: Historical Data, Nursing Documentation, Vital Signs Vital Signs: Last Vital Signs Temp 98.3 F 11/18/17 02:21 Pulse 107 H 11/18/17 02:21 Resp 18 11/18/17 02:21 BP 158/87 H 11/18/17 02:21 Pulse Ox 98 11/18/17 02:21 - Medical History PMH: Asthma, Diabetes, Fractures (foot fracture), Gastritis, HTN, Pneumonia Denies: HIV, Hyperthyroidism, Migraine, Chronic Kidney Disease - Family History Family History: States: No Known Family Hx - Home Medications Home Medications: Ambulatory Orders Medication Instructions Recorded Cholecalciferol [Vitamin D 1000 IU] 1 tab PO QWK 10/17/17 Levofloxacin [Levaquin] 500 mg PO DAILY #3 tablet 10/20/17 MetFORMIN [glucoPHAGE] 500 mg PO BID #60 tab 10/20/17 NIFEdipine ER [Procardia XL] 30 mg PO DAILY #30 ter 10/20/17 cloNIDine [Catapres] 0.1 mg PO Q12H #60 tab 10/20/17 Ibuprofen [Motrin Tab] 1 tab PO QID #40 tab 10/28/17 Amoxicillin/Clavulanate [Augmentin 1 tab PO BID #14 tab 11/13/17 875 MG-125 MG] Naproxen [Naprosyn] 500 mg PO BID PRN #10 tab 11/18/17 - Allergies Allergies/Adverse Reactions: Allergies Allergy/AdvReac Type Severity Reaction Status Date / Time Seafood Allergy SHORTNESS Uncoded 11/13/17 19:59 OF BREATH Review of Systems ROS Statement: Except As Marked, All Systems Reviewed And Found Negative Physical Exam - Physical Exam Appears: Positive for: Well, Non-toxic, No Acute Distress Skin: Positive for: Normal Color, Warm. Negative for: Rash Eye Exam: Positive for: Normal appearance Pulses-Dorsalis Pedis (L): 2+ Pulses-Dorsalis Pedis (R): 2+ Extremity: Positive for: Normal ROM (FROM actively of LEFT lower extremity), Other (L foot without tenderness, swelling, break in skin integrity, warmth, erythema, ulcers, lesions, or deformity). Negative for: Pedal Edema (b/l), Calf Tenderness (b/l), Capillary Refill (< 2 seconds of left lower extremity) Neurologic/Psych: Positive for: Alert, Oriented, Gait (steady, unassisted). Negative for: Aphasia, Facial Droop - ECG O2 Sat by Pulse Oximetry: 98 - Radiology X-Ray: Interpreted by Me (L foot x-ray) X-Ray Interpretation: Other (heel spur; no fx) - Progress ED Course And Treament: Tylenol 975mg PO, L foot x-ray ordered. Disposition - Clinical Impression Clinical Impression: Heel spur - Patient ED Disposition Is Patient to be Admitted: No - Disposition Referrals: Lei Waddell MD [Primary Care Provider] - [facility] [Outside] Disposition: Routine/Home Disposition Time: 02:40 Condition: STABLE Additional Instructions: Follow up with your [facility] sharpshooter for further evaluation. Return to ED immediately if symptoms worsen. Prescriptions: Naproxen [Naprosyn] 500 mg PO BID PRN #10 tab PRN Reason: Pain Instructions: Heel Spurs (DC) Forms: [employer] (Guinean) Print Language: JAMAICAN
--- NOTE | 2017-11-18 08:40 | RAD ---
PROCEDURE: Left Foot Radiographs. HISTORY: pain COMPARISON: None. FINDINGS: BONES: No acute fracture or destructive bony lesion identified. A moderate plantar calcaneal spurs identified. JOINTS: Normal. SOFT TISSUES: Normal. OTHER FINDINGS: None. IMPRESSION: No acute fracture or dislocation identified. A moderate plantar calcaneal spur is appreciated.
== END 2017-11-18 06:16 | disposition home or self-care (01) ==
LOC: H.ER 02:10
DX: M77.32 Calcaneal spur, left foot (principal); E11.9 Type 2 diabetes mellitus without complications; I10 Essential (primary) hypertension; J45.909 Unspecified asthma, uncomplicated; Z79.84 Long term (current) use of oral hypoglycemic drugs

== ENCOUNTER 2017-11-21 06:10 | Emergency (ER) | payer MEDICAID ==
[2017-11-21 06:11] VITALS: BMI 39.4
[2017-11-21 06:31] VITALS: RESP 18; TEMP 98.6
[2017-11-21 08:04] LABS: BASO # 0.1 K/uL (0.0-0.2); BASO % 0.8 % (0.0-2.0); EOS # 0.3 K/uL (0.0-0.7); EOS % 2.4 % (0.0-4.0); HEMOGLOBIN 12.6 g/dL (12.0-16.0); LYMPH # 2.7 K/uL (1.0-4.3); LYMPH % 23.1 % (20.0-40.0); MEAN CELL VOLUME 75.7 fl (81.0-99.0); MEAN CORPUSCULAR HEMOGLOBIN 24.3 pg (27.0-31.0); MEAN CORPUSCULAR HGB CONC 32.2 g/dL (33.0-37.0); MEAN PLATELET VOLUME 9.6 fl (7.2-11.7); MONO # 0.8 K/uL (0.0-0.8); MONO % 7.3 % (0.0-10.0); NEUT # 7.7 K/uL (1.8-7.0); NEUT % 66.4 % (50.0-75.0); NRBC % 0.1 % (0.0-0.0); RBC 5.18 Mil/uL (3.80-5.20); WHITE BLOOD COUNT 11.5 K/uL (4.8-10.8)
[2017-11-21 08:26] LABS: B-TYPE NATRIURETIC PEPTIDE 65.4 pg/ml (0-450)
[2017-11-21 08:27] LABS: ALB/GLOB RATIO 1.3 (1.0-2.1); ALBUMIN 4.1 g/dL (3.5-5.0); ALT/SGPT 36 U/L (9-52); AST/SGOT 20 U/L (14-36); BLOOD UREA NITROGEN 14 mg/dl (7-17); CALCIUM 9.2 mg/dL (8.4-10.2); GFR AFRICAN-AMERICAN > 60; GFR NON-AFRICAN AMERICAN > 60
--- NOTE | 2017-11-21 11:10 | ED PDOC ---
HPI: General Adult Time Seen by Provider: 11/21/17 07:12 Chief Complaint (Nursing): Chest Pain Chief Complaint (Provider): SOB, sore throat History Per: Patient History/Exam Limitations: no limitations Current Symptoms Are (Timing): Still Present Severity: Mild Additional Complaint(s): 37yo female c/o sore throat, SOB and malaise. Past Medical History Vital Signs: Last Vital Signs Temp 98.6 F 11/21/17 06:22 Pulse 107 H 11/21/17 06:22 Resp 18 11/21/17 06:22 BP 135/80 11/21/17 06:22 Pulse Ox 99 11/21/17 06:22 - Medical History PMH: Asthma, Diabetes, Fractures (foot fracture), Gastritis, HTN, Pneumonia Denies: HIV, Hyperthyroidism, Migraine, Chronic Kidney Disease - Home Medications Home Medications: Ambulatory Orders Medication Instructions Recorded Cholecalciferol [Vitamin D 1000 IU] 1 tab PO QWK 10/17/17 Levofloxacin [Levaquin] 500 mg PO DAILY #3 tablet 10/20/17 MetFORMIN [glucoPHAGE] 500 mg PO BID #60 tab 10/20/17 NIFEdipine ER [Procardia XL] 30 mg PO DAILY #30 ter 10/20/17 cloNIDine [Catapres] 0.1 mg PO Q12H #60 tab 10/20/17 Ibuprofen [Motrin Tab] 1 tab PO QID #40 tab 10/28/17 Amoxicillin/Clavulanate [Augmentin 1 tab PO BID #14 tab 11/13/17 875 MG-125 MG] Naproxen [Naprosyn] 500 mg PO BID PRN #10 tab 11/18/17 Amoxicillin 875 mg PO BID #10 tablet 11/21/17 - Allergies Allergies/Adverse Reactions: Allergies Allergy/AdvReac Type Severity Reaction Status Date / Time Seafood Allergy SHORTNESS Uncoded 11/13/17 19:59 OF BREATH - Laboratory Results Result Diagrams: 11/21/17 07:55 11/21/17 07:55 - ECG O2 Sat by Pulse Oximetry: 99 Disposition - Clinical Impression Clinical Impression: Pharyngitis - Disposition Referrals: [facility] [Outside] Condition: STABLE Prescriptions: Amoxicillin 875 mg PO BID #10 tablet Instructions: Sore Throat in Adults Forms: [employer] (Lao)
[2017-11-21 11:38] VITALS: BP 132/78; PULSE 93; O2SAT 100
== END 2017-11-21 11:15 | disposition home or self-care (01) ==
LOC: H.ER 06:10
DX: J02.9 Acute pharyngitis, unspecified (principal); R06.02 Shortness of breath; E11.9 Type 2 diabetes mellitus without complications; I10 Essential (primary) hypertension; J45.909 Unspecified asthma, uncomplicated; Z79.84 Long term (current) use of oral hypoglycemic drugs

== ENCOUNTER 2017-11-30 12:32 | Observation (INO) | payer MEDICAID ==
[2017-11-30 12:33] VITALS: BMI 39.4
[2017-11-30 12:45] VITALS: O2SAT 100
--- NOTE | 2017-11-30 12:53 | ED PDOC ---
HPI:STROKE - Time Time: 12:53 - Historian Historian: Patient - Chief Complaint Chief Complaint: Weakness - Onset Date: 11/30/17 Time: 11:20 - Timing Timing: Currently Symptomatic - TPA Positive for Contraindication: Yes Reason tPA is not being Administered: Does not meet criteria per neurologist evaluation and exam. - Notes: Notes:: Pt. was walking and suddenly got light-headed and room spinning sensation. Then pt. felt weak all over. Pt. came to the ER accordingly. Denies any numbness, tingles, headaches, vision changes, chest pain, dyspnea, abd pain. No syncope. NIHSS Stroke Scale - Date/Time Evaluation Performed Date Performed: 11/30/17 Time Performed: 12:53 When Was NIHSS Performed: Baseline - How Severe is the Stroke Level of Consciousness: 0=Alert LOC to Questions: 0=Both comments correct LOC to commands: 0=Obeys both correctly Best Gaze: 0=Normal Visual: 0=No visual loss Facial: 2=Partial (lower face paralysis) Motor Arm - Left: 0=No drift Motor Arm - Right: 2=Falls before 10 sec Motor Leg - Left: 0=No drift Motor Leg - Right: 2=Falls before 5 sec Limb Ataxia: 1=Present Upper or Lower Sensory: 1=Mild to moderate loss Best Language: 0=No aphasia Dysarthia: 0=Normal articulation Extinction & Inattention (Neglect): 0=Normal, no object Score: 8 rTPA Inclusion/Exclusion - Refusal of Treatment Patient Refused Treatment: No - Inclusion Criteria for Altepase Patient is 18 years or Older: Yes The Clinical Diagnosis of Ischemic Stroke That is Causing a Potentially Disabling Neurological Deficit: No Time of Onset is Well Established to be Less Than 270 Minute Before Treatment Would Begin: Yes Risk/Benefit Discussed With Patient/Family Member Present: No Past Medical History Vital Signs: Last Vital Signs Temp 98.6 F 11/30/17 12:41 Pulse 99 H 11/30/17 12:41 Resp 16 11/30/17 12:41 BP 166/129 H 11/30/17 12:41 Pulse Ox 100 11/30/17 12:41 - Medical History PMH: Asthma, Diabetes, Gastritis, HTN, Pneumonia Denies: HIV, Hyperthyroidism, Migraine, Chronic Kidney Disease - Family History Family History: States: Unknown Family Hx - Home Medications Home Medications: Ambulatory Orders Medication Instructions Recorded Cholecalciferol [Vitamin D 1000 IU] 1 tab PO QWK 10/17/17 Levofloxacin [Levaquin] 500 mg PO DAILY #3 tablet 10/20/17 MetFORMIN [glucoPHAGE] 500 mg PO BID #60 tab 10/20/17 NIFEdipine ER [Procardia XL] 30 mg PO DAILY #30 ter 10/20/17 cloNIDine [Catapres] 0.1 mg PO Q12H #60 tab 10/20/17 Ibuprofen [Motrin Tab] 1 tab PO QID #40 tab 10/28/17 Amoxicillin/Clavulanate [Augmentin 1 tab PO BID #14 tab 11/13/17 875 MG-125 MG] Naproxen [Naprosyn] 500 mg PO BID PRN #10 tab 11/18/17 Amoxicillin 875 mg PO BID #10 tablet 11/21/17 - Allergies Allergies/Adverse Reactions: Allergies Allergy/AdvReac Type Severity Reaction Status Date / Time Seafood Allergy SHORTNESS Uncoded 11/13/17 19:59 OF BREATH Review of Systems ROS Statement: Except As Marked, All Systems Reviewed And Found Negative Constitutional: Positive for: Weakness Neurological: Positive for: Weakness, Dizziness Physical Exam - Reviewed Nursing Documentation Reviewed: Yes Vital Signs Reviewed: Yes - Physical Exam Appears: Positive for: Non-toxic, No Acute Distress Head Exam: Positive for: ATRAUMATIC, NORMAL INSPECTION, NORMOCEPHALIC Skin: Positive for: Normal Color, Warm, DRY Eye Exam: Positive for: EOMI, PERRL, Other (mild right eye droop corrected with smiling) ENT: Negative for: Nasal Congestion, Pharyngeal Erythema, Tonsillar Exudate Neck: Positive for: Normal, Painless ROM, Supple Cardiovascular/Chest: Positive for: Regular Rate, Rhythm Respiratory: Positive for: CNT, Normal Breath Sounds Gastrointestinal/Abdominal: Positive for: Normal Exam, Soft. Negative for: Tenderness Back: Positive for: Normal Inspection. Negative for: L CVA Tenderness, R CVA Tenderness Extremity: Negative for: Tenderness, Pedal Edema, Calf Tenderness Neurologic/Psych: Positive for: Alert, nursing education consultant II-XII (except lower R facial droop minor; R eyelid droop mild that is corrected on smiling), Oriented, Motor/ Sensory Deficits (R upper and lower extremity 3/5), Gait (abnormal), Facial Droop (R lower facial minor dropp). Negative for: Aphasia - Laboratory Results Interpretation Of Abn Labs: no acute - ECG ECG: Positive for: Interpreted By Me, Viewed By Me ECG Rhythm: Positive for: Normal QRS, Sinus Rhythm, Nonspecific Changes O2 Sat by Pulse Oximetry: 100 Pulse Ox Interpretation: Normal - CT Scan/US ct Other Rad Studies (CT/US): Read By Radiologist Other Rad Interpretation: no acute - Progress ED Course And Treament: 1240: Having trouble with IV access for CTA. 1310: IV established. 1318: Stable. Dr. Mosqueda evaluated pt. while at CT via [employer] on provider phone as telestroke machine not working. Dr. Mosqueda states pt. does not meet criteria for thrombolytics. Pt. raising both hands with no issues. Smiling. 1426: Pt. walked to the bathroom with no issues. Still dizzy. Will give ativan as pt. failed swallow evaluation per onset of symptoms. Spoke with Dr. Riley. Will admit and give further orders when pt. reaches floor. AAOx3. Disposition - Clinical Impression Clinical Impression: Dizziness, TIA (transient ischemic attack) - Patient ED Disposition Is Patient to be Admitted: Yes Counseled Patient/Family Regarding: Studies Performed, Diagnosis - Disposition Disposition Time: 14:30 Condition: FAIR - Pt Status Changed To: Hospital Disposition Of: Observation - POA Present On Arrival: None
[2017-11-30] MEDS ORDERED: Iodixanol 320 MG/ML 100 ML BOTTLE IV ONE (12:54)
[2017-11-30] MEDS ORDERED: Sodium Chloride 0.9% 1,000 ML IV SCH (13:00)
--- NOTE | 2017-11-30 13:10 | CT ---
PROCEDURE: CT HEAD WITHOUT CONTRAST. HISTORY: code stroke COMPARISON: 11/26/2017 TECHNIQUE: Axial computed tomography images were obtained through the head/brain without intravenous contrast. Radiation dose: Total exam DLP = 938.24 mGy-cm. This CT exam was performed using one or more of the following dose reduction techniques: Automated exposure control, adjustment of the mA and/or kV according to patient size, and/or use of iterative reconstruction technique. FINDINGS: HEMORRHAGE: No intracranial hemorrhage. BRAIN: No mass effect or edema. No atrophy. No chronic white matter ischemic change. No evidence of acute infarct. Normal lopez/ white matter differentiation is preserved. VENTRICLES: Unremarkable. No hydrocephalus. CALVARIUM: Unremarkable. PARANASAL SINUSES: Chronic sphenoid and right maxillary sinusitis. MASTOID AIR CELLS: Unremarkable as visualized. No inflammatory changes. OTHER FINDINGS: None. IMPRESSION: No evidence of acute infarct. Chronic sphenoid and right maxillary sinusitis. The examination is otherwise unremarkable.
[2017-11-30 13:23] LABS: BASO # 0.2 K/uL (0.0-0.2); BASO % 1.4 % (0.0-2.0); EOS # 0.2 K/uL (0.0-0.7); EOS % 1.9 % (0.0-4.0); LYMPH # 2.8 K/uL (1.0-4.3); LYMPH % 25.3 % (20.0-40.0); MEAN CELL VOLUME 75.7 fl (81.0-99.0); MEAN CORPUSCULAR HEMOGLOBIN 24.7 pg (27.0-31.0); MEAN CORPUSCULAR HGB CONC 32.6 g/dL (33.0-37.0); MEAN PLATELET VOLUME 9.7 fl (7.2-11.7); MONO # 0.7 K/uL (0.0-0.8); MONO % 6.2 % (0.0-10.0); NEUT # 7.3 K/uL (1.8-7.0); NEUT % 65.2 % (50.0-75.0); RBC 4.86 Mil/uL (3.80-5.20); RED CELL DISTRIBUTION WIDTH 16.1 % (11.5-14.5); WHITE BLOOD COUNT 11.1 K/uL (4.8-10.8)
[2017-11-30] MEDS ORDERED: diaZEpam 10 mg/2 ml Inj IVP STA (13:30)
[2017-11-30 13:34] LABS: ALB/GLOB RATIO 1.1 (1.0-2.1); ALT/SGPT 36 U/L (9-52); AST/SGOT 23 U/L (14-36); BLOOD UREA NITROGEN 15 mg/dl (7-17); CALCIUM 9.3 mg/dL (8.4-10.2); GFR AFRICAN-AMERICAN > 60; GFR NON-AFRICAN AMERICAN > 60; HDL CHOLESTEROL 33 MG/DL (30-70); PROTHROMBIN TIME 10.6 Seconds (9.8-13.1)
[2017-11-30 13:43] LABS: LDL CHOLESTEROL 100 mg/dL (0-129)
--- NOTE | 2017-11-30 16:00 | CP.PCM.CON ---
History of Present Illness - History of Present Illness History of Present Illness: 37 yr old woman who I was called on for code stroke and was evaluated remotely on video call. Miss Reyes was deemed not to be a TPA candidate as her nIH stroke scale was low, and zero in my opinion. She presented with right sided facial droop, baseline right eye ptosis and weakness of right upper and lower limb, that resolved on my evaluation. Her speech was normal and she had equal strength and was able to follow commands well. She was not given TPA and is now admitted to [facility]. History is as follows: patient became dizzy, and felt weak all ocer. PMH/PSH: Asthma, Diabetes, Gastritis, HTN, Pneumonia Denies: HIV, Hyperthyroidism, Migraine, Chronic Kidney Disease FH/SH: non contributory All: seafood on exam: aaox3. PERRL. CN 2-12 normal. EOMI. speech fluent. Can name and repeat. Motor: strength is normal, sensory: intact ft, pin position sense +2 dtr ul and ll bl. Toes downgoing. No clonus. Gait normal. Past Patient History - Past Medical History & Family History Past Medical History?: Yes - Past Social History Smoking Status: Light Smoker < 10 Cigarettes Daily - CARDIAC Hx Hypertension: Yes - PULMONARY Hx Asthma: Yes Hx Pneumonia: Yes - NEUROLOGICAL Hx Migraine: No - HEENT Hx HEENT Problems: No - RENAL Hx Chronic Kidney Disease: No - ENDOCRINE/METABOLIC Hx Hyperthyroidism: No - HEMATOLOGICAL/ONCOLOGICAL Hx Human Immunodeficiency Virus (HIV): No - INTEGUMENTARY Hx Dermatological Problems: No - MUSCULOSKELETAL/RHEUMATOLOGICAL Hx Fractures: Yes (foot fracture) - GASTROINTESTINAL Hx Gastritis: Yes - GENITOURINARY/GYNECOLOGICAL Hx Genitourinary Disorders: No - PSYCHIATRIC Hx Psychophysiologic Disorder: No Hx Substance Use: No - SURGICAL HISTORY Hx Surgeries: No - ANESTHESIA Hx Anesthesia: No Hx Anesthesia Reactions: No Hx Malignant Hyperthermia: No Meds Allergies/Adverse Reactions: Allergies Allergy/AdvReac Type Severity Reaction Status Date / Time Seafood Allergy SHORTNESS Uncoded 11/13/17 19:59 OF BREATH - Medications Medications: Current Medications Sodium Chloride (Sodium Chloride 0.9%) 1,000 mls @ 100 mls/hr IV .Q10H PETRONA Last Admin: 11/30/17 13:43 Dose: 100 mls/hr Results - Vital Signs Recent Vital Signs: Last Vital Signs Temp 98.6 F 11/30/17 12:41 Pulse 99 H 11/30/17 12:41 Resp 16 11/30/17 12:41 BP 166/129 H 11/30/17 12:41 Pulse Ox 100 11/30/17 14:30 - Labs Result Diagrams: 11/30/17 13:18 11/30/17 13:18 Labs: Laboratory Results - last 24 hr 11/30/17 11/30/17 11/30/17 13:13 13:18 13:18 WBC 11.1 H RBC 4.86 Hgb 12.0 Hct 36.8 MCV 75.7 L MCH 24.7 L MCHC 32.6 L RDW 16.1 H Plt Count 182 MPV 9.7 Neut % (Auto) 65.2 Lymph % (Auto) 25.3 Jack % (Auto) 6.2 Eos % (Auto) 1.9 Baso % (Auto) 1.4 Neut # (Auto) 7.3 H Lymph # (Auto) 2.8 Jack # (Auto) 0.7 Eos # (Auto) 0.2 Baso # (Auto) 0.2 PT INR APTT Sodium 142 Potassium 3.9 Chloride 103 Carbon Dioxide 24 Anion Gap 19 BUN 15 Creatinine 0.9 Est GFR ( Amer) > 60 Est GFR (Non-Af Amer) > 60 Random Glucose 159 H Calcium 9.3 Total Bilirubin 0.5 AST 23 ALT 36 Alkaline Phosphatase 74 Troponin I < 0.0120 Total Protein 7.5 Albumin 4.0 Globulin 3.5 Albumin/Globulin Ratio 1.1 Triglycerides 167 H Cholesterol 167 LDL Cholesterol Direct 100 HDL Cholesterol 33 Blood Type B POSITIVE Antibody Screen Negative BBK History Checked Patient has bt 11/30/17 13:18 WBC RBC Hgb Hct MCV MCH MCHC RDW Plt Count MPV Neut % (Auto) Lymph % (Auto) Jack % (Auto) Eos % (Auto) Baso % (Auto) Neut # (Auto) Lymph # (Auto) Jack # (Auto) Eos # (Auto) Baso # (Auto) PT 10.6 INR 1.0 APTT 38.0 H Sodium Potassium Chloride Carbon Dioxide Anion Gap BUN Creatinine Est GFR ( Amer) Est GFR (Non-Af Amer) Random Glucose Calcium Total Bilirubin AST ALT Alkaline Phosphatase Troponin I Total Protein Albumin Globulin Albumin/Globulin Ratio Triglycerides Cholesterol LDL Cholesterol Direct HDL Cholesterol Blood Type Antibody Screen BBK History Checked - Imaging and Cardiology CT scan - head Status: Image reviewed by me, Report reviewed by me (normal ct head, no hemorrhage, no stroke. ) Assessment & Plan - Assessment and Plan (Free Text) Assessment: 37 yr old woman who may have had VBI, or tia, but is not TPA candidate. She will get stroke workup. plan: 1. ECHO 2. aspirin 325 mg po daily. 3. PT/ST/OT
[2017-11-30 16:16] VITALS: RESP 20
--- NOTE | 2017-11-30 16:28 | RAD ---
HISTORY: Code Stroke COMPARISON: 10/27/2017 FINDINGS: LUNGS: No active pulmonary disease. PLEURA: No significant pleural effusion identified, no pneumothorax apparent. CARDIOVASCULAR: Normal. OSSEOUS STRUCTURES: No significant abnormalities. VISUALIZED UPPER ABDOMEN: Normal. OTHER FINDINGS: None. IMPRESSION: No active disease.
--- NOTE | 2017-11-30 17:34 | CARD ---
APPROVED REPORT EKG Measurement Heart [id number] <Conclusion> Normal sinus rhythm Biatrial enlargement Nonspecific T wave abnormality Abnormal ECG
[2017-11-30] MEDS ORDERED: Dextrose 5%/0.9% NS 1,000 ML IV SCH (19:00)
[2017-11-30] MEDS ORDERED: Insulin Lispro (humaLOG) 100 Units/ml Inj SC SCH (22:00)
[2017-11-30 23:57] VITALS: BP 189/93; PULSE 89; TEMP 98.9
--- NOTE | 2017-12-01 11:04 | CT ---
PROCEDURE: CTA of the brain HISTORY: code stroke COMPARISON: Comparison is made with the previous CT of the head TECHNIQUE: CTA of the neck and brain were obtained after IV contrast administration. Total IV contrast injection 99 cc of Visipaque 320. Total exam DLP :8-3.6 FINDINGS: Please see the report of the CTA of the neck for the findings. IMPRESSION: Please refer to the CTA of the neck for the complete report.
--- NOTE | 2017-12-01 19:22 | CP.PCM.PN ---
Subjective - Date & Time of Evaluation Date of Evaluation: 11/30/17 Time of Evaluation: 20:30 - Subjective Subjective: I was called by the RN, Moiz when patient refused to stay in the hospital as she was NPO after she failed bed side swallow evaluation. She insisted in eating and was refused. Also Unable to do repeat swallow evaluation after hour. I have spoken to the patient telephonically and she is fully oriented. She refused to stay despite explaining to her of major Complications including Major stroke and even . Objective - Vital Signs/Intake and Output Vital Signs (last 24 hours): Temp Pulse Resp BP Pulse Ox 98.9 F 89 20 189/93 H 100 11/30/17 23:55 11/30/17 23:55 11/30/17 23:55 11/30/17 23:55 11/30/17 16:15 - Medications Medications: Current Medications Aspirin (Aspirin Supp) 300 mg MA DAILY PETRONA Hydralazine HCl (Apresoline) 10 mg IV Q6 PRN PRN Reason: high bp Insulin Human Lispro (Humalog) 0 units SC ACHS PETRONA PRN Reason: Protocol - Labs Labs: 11/30/17 13:18 11/30/17 13:18 PT 10.6 Seconds (9.8-13.1) 11/30/17 13:18 INR 1.0 (0.9-1.2) 11/30/17 13:18 APTT 38.0 Seconds (25.6-37.1) H 11/30/17 13:18
== END 2017-11-30 18:35 | disposition left against medical advice (07) ==
LOC: H.ER 12:32 → H.ERHOLD 14:22 → H.TEL 16:14
PROVIDERS: ADMIT Internal Medicine; ATTEND Internal Medicine
DX: R42 Dizziness and giddiness (principal); R53.1 Weakness; Z91.013 Allergy to seafood; E11.9 Type 2 diabetes mellitus without complications; K29.70 Gastritis, unspecified, without bleeding; I10 Essential (primary) hypertension; F17.210 Nicotine dependence, cigarettes, uncomplicated; R29.810 Facial weakness
CPT/HCPCS: 70450; 70496; 70498; 71045; 80053; 80061; 81025; 82948; 83036; 84484; 85025; 85610; 85730; 86850; 86900; 93005; 96374; 99284; G0378; J2060; J7040; Q9967

== ENCOUNTER 2017-12-11 04:23 | Emergency (ER) | payer MEDICAID ==
[2017-12-11 04:23] VITALS: BMI 39.4
[2017-12-11] MEDS ORDERED: Albuterol-Ipratrop 3 mg / 0.5 (3 ml) UD IH STA (04:55)
--- NOTE | 2017-12-11 04:58 | ED PDOC ---
HPI: CCC, URI, Sore Throat Time Seen by Provider: 12/11/17 04:45 Chief Complaint (Nursing): Cough, Cold, Congestion Chief Complaint (Provider): cough History Per: Patient History/Exam Limitations: no limitations Onset/Duration Of Symptoms: Days (4) Current Symptoms Are (Timing): Still Present Associated Symptoms: Cough, Sputum Additional Complaint(s): 37 y/o female presents with cough x 4 days. Associated wheezing, states cough sometimes produces white sputum. Denies fever, ear pain, throat pain, nasal congestion, chest pain, shortness of breath, palpitations, leg pain/swelling. Patient requesting prednisone. Past Medical History Reviewed: Historical Data, Nursing Documentation, Vital Signs Vital Signs: Last Vital Signs Temp 99.0 F 12/11/17 04:45 Pulse 92 H 12/11/17 04:45 Resp 16 12/11/17 04:45 BP 143/82 12/11/17 04:45 Pulse Ox 100 12/11/17 04:58 - Medical History PMH: Asthma, Diabetes, Fractures (foot fracture), Gastritis, HTN, Pneumonia Denies: HIV, Hyperthyroidism, Migraine, Chronic Kidney Disease - Family History Family History: States: Unknown Family Hx - Living Arrangements Living Arrangements: Alone - Social History Current smoker - smoking cessation education provided: Yes Alcohol: None Drugs: Denies - Home Medications Home Medications: Ambulatory Orders Medication Instructions Recorded Cholecalciferol [Vitamin D 1000 IU] 1 tab PO QWK 10/17/17 Levofloxacin [Levaquin] 500 mg PO DAILY #3 tablet 10/20/17 MetFORMIN [glucoPHAGE] 500 mg PO BID #60 tab 10/20/17 NIFEdipine ER [Procardia XL] 30 mg PO DAILY #30 ter 10/20/17 cloNIDine [Catapres] 0.1 mg PO Q12H #60 tab 10/20/17 Ibuprofen [Motrin Tab] 1 tab PO QID #40 tab 10/28/17 Amoxicillin/Clavulanate [Augmentin 1 tab PO BID #14 tab 11/13/17 875 MG-125 MG] Naproxen [Naprosyn] 500 mg PO BID PRN #10 tab 11/18/17 Amoxicillin 875 mg PO BID #10 tablet 11/21/17 Albuterol HFA [Ventolin HFA 90 1 puff IH Q4 PRN #1 inh 12/11/17 mcg/actuation (8 g)] predniSONE [Prednisone] 60 mg PO DAILY #12 tab 12/11/17 - Allergies Allergies/Adverse Reactions: Allergies Allergy/AdvReac Type Severity Reaction Status Date / Time Seafood Allergy SHORTNESS Uncoded 11/13/17 19:59 OF BREATH Review of Systems ROS Statement: Except As Marked, All Systems Reviewed And Found Negative Respiratory: Positive for: Cough, Sputum, Wheezing Physical Exam - Reviewed Nursing Documentation Reviewed: Yes Vital Signs Reviewed: Yes - Physical Exam Appears: Positive for: Well, Non-toxic, No Acute Distress (sleeping) Head Exam: Positive for: ATRAUMATIC, NORMAL INSPECTION, NORMOCEPHALIC Skin: Positive for: Normal Color Eye Exam: Positive for: Normal appearance ENT: Positive for: Normal ENT Inspection Cardiovascular/Chest: Positive for: Regular Rate, Rhythm Respiratory: Positive for: Wheezing (diffuse expiratory wheezing). Negative for : Accessory Muscle Use, Respiratory Distress Gastrointestinal/Abdominal: Positive for: Normal Exam Back: Positive for: Normal Inspection Extremity: Positive for: Normal ROM Neurologic/Psych: Positive for: Alert, Oriented - ECG O2 Sat by Pulse Oximetry: 100 - Radiology X-Ray: Viewed By Nv X-Ray Interpretation: No Acute Disease - Progress ED Course And Treament: xray, duonebs, prednisone PO Patient educated on findings, discharged with rx prednsione, albuterol hfa Advised smoking cessation Follow up PMD 2-3 days. Return precautions given Disposition - Clinical Impression Clinical Impression: Bronchospasm - Patient ED Disposition Is Patient to be Admitted: No Counseled Patient/Family Regarding: Studies Performed, Diagnosis, Need For Followup, Rx Given - Disposition Disposition: Routine/Home Disposition Time: 05:48 Condition: IMPROVED Prescriptions: Albuterol HFA [Ventolin HFA 90 mcg/actuation (8 g)] 1 puff IH Q4 PRN #1 inh PRN Reason: Wheezing predniSONE [Prednisone] 60 mg PO DAILY #12 tab Instructions: Asthma in Adults Forms: [facility] (Malay)
[2017-12-11] MEDS ORDERED: Albuterol-Ipratrop 3 mg / 0.5 (3 ml) UD ONE ×2 (05:14→05:23)
[2017-12-11 06:07] VITALS: BP 133/82; PULSE 88; RESP 17; TEMP 98.9; O2SAT 99
--- NOTE | 2017-12-11 09:31 | RAD ---
HISTORY: cough COMPARISON: Frontal chest radiograph 11/30/2017. TECHNIQUE: Chest PA and lateral FINDINGS: LUNGS: No active pulmonary disease. PLEURA: No significant pleural effusion identified. No pneumothorax apparent. CARDIOVASCULAR: Normal. OSSEOUS STRUCTURES: No significant abnormalities. VISUALIZED UPPER ABDOMEN: Normal. OTHER FINDINGS: None. IMPRESSION: No interval acute cardiopulmonary disease appreciated.
== END 2017-12-11 05:59 | disposition home or self-care (01) ==
LOC: H.ER 04:23
DX: J98.01 Acute bronchospasm (principal); E11.9 Type 2 diabetes mellitus without complications; I10 Essential (primary) hypertension; J45.909 Unspecified asthma, uncomplicated; Z79.84 Long term (current) use of oral hypoglycemic drugs; F17.200 Nicotine dependence, unspecified, uncomplicated

== ENCOUNTER 2017-12-16 02:02 | Emergency (ER) | payer MEDICAID ==
[2017-12-16 02:02] VITALS: BMI 39.4
[2017-12-16 02:33] VITALS: TEMP 97.8
[2017-12-16 03:00] VITALS: RESP 18
--- NOTE | 2017-12-16 03:29 | ED PDOC ---
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 Patient states that her blood pressure was elevated at onset of dizziness, prompting ED arrival. Patient also notes mild headache and confirms it is non-thunderclap nor maximum on onset. Of note, patient is homeless. PCP: None Past Medical History Reviewed: Historical Data, Nursing Documentation, Vital Signs Vital Signs: Last Vital Signs Temp 97.8 F 12/16/17 02:29 Pulse 85 12/16/17 04:26 Resp 18 12/16/17 04:26 BP 155/58 H 12/16/17 04:26 Pulse Ox 96 12/16/17 04:26 - Medical History PMH: Asthma, Diabetes, Fractures (foot fracture), Gastritis, HTN, Pneumonia Denies: HIV, Hyperthyroidism, Migraine, Chronic Kidney Disease - Family History Family History: States: Unknown Family Hx - Living Arrangements Living Arrangements: Other (Homeless) - Social History Current smoker - smoking cessation education provided: Yes Ex-Smoker (has not smoked in the last 12 months): No - Home Medications Home Medications: Ambulatory Orders Medication Instructions Recorded Cholecalciferol [Vitamin D 1000 IU] 1 tab PO QWK 10/17/17 Levofloxacin [Levaquin] 500 mg PO DAILY #3 tablet 10/20/17 MetFORMIN [glucoPHAGE] 500 mg PO BID #60 tab 10/20/17 NIFEdipine ER [Procardia XL] 30 mg PO DAILY #30 ter 10/20/17 cloNIDine [Catapres] 0.1 mg PO Q12H #60 tab 10/20/17 Ibuprofen [Motrin Tab] 1 tab PO QID #40 tab 10/28/17 Amoxicillin/Clavulanate [Augmentin 1 tab PO BID #14 tab 11/13/17 875 MG-125 MG] Naproxen [Naprosyn] 500 mg PO BID PRN #10 tab 11/18/17 Amoxicillin 875 mg PO BID #10 tablet 11/21/17 Albuterol HFA [Ventolin HFA 90 1 puff IH Q4 PRN #1 inh 12/11/17 mcg/actuation (8 g)] predniSONE [Prednisone] 60 mg PO DAILY #12 tab 12/11/17 - Allergies Allergies/Adverse Reactions: Allergies Allergy/AdvReac Type Severity Reaction Status Date / Time Seafood Allergy SHORTNESS Uncoded 11/13/17 19:59 OF BREATH Review of Systems ROS Statement: Except As Marked, All Systems Reviewed And Found Negative Constitutional: Positive for: Other ((+) elevated blood pressure) Neurological: Positive for: Headache, Dizziness Physical Exam - Reviewed Nursing Documentation Reviewed: Yes Vital Signs Reviewed: Yes - Physical Exam Appears: Positive for: Non-toxic, No Acute Distress Skin: Positive for: Normal Color, Warm, Dry Eye Exam: Positive for: EOMI, PERRL. Negative for: Normal appearance (chronic right-sided lid lag) Cardiovascular/Chest: Positive for: Regular Rate, Rhythm. Negative for: Murmur Respiratory: Positive for: Normal Breath Sounds. Negative for: Respiratory Distress Extremity: Positive for: Normal ROM. 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 Negative for: Motor/Sensory Deficits - ECG ECG: Positive for: Interpreted By Me, Viewed By Me ECG Rhythm: Positive for: Sinus Rhythm Rate: 85 O2 Sat by Pulse Oximetry: 100 (RA) Pulse Ox Interpretation: Normal Medical Decision Making Medical Decision Makin Initial impression: Patient is well appearing and was seen walking steadily in waiting room. Symptom likely related to high blood pressure. No acute process suspected at this time. Initial plan: * EKG * Catapres 0.1mg PO BID * Re-eval 0430 Patient's blood pressure resolved, patient ambulating, feeling well, will d/c home. Scribe Attestation: Documented by Renay Yoder acting as a scribe for Reji Cardenas MD. Scribe Attestation: All medical record entries made by the Scribe were at my direction and personally dictated by me. I have reviewed the chart and agree that the record accurately reflects my personal performance of the history, physical exam, medical decision making, and the department course for this patient. I have also personally directed, reviewed, and agree with the discharge instructions and disposition. Disposition - Clinical Impression Clinical Impression: Headache, Bronchospasm - Disposition Referrals: Lei Waddell MD [Primary Care Provider] - Disposition: Routine/Home Disposition Time: 04:32 Condition: STABLE Instructions: Headache, Adult, High Blood Pressure (DC) Forms: [employer] (Swiss)
[2017-12-16 04:27] VITALS: BP 155/58; PULSE 85
[2017-12-16 04:33] VITALS: O2SAT 100
--- NOTE | 2017-12-16 22:30 | CARD ---
APPROVED REPORT EKG Measurement Heart [id number] <Conclusion> Normal sinus rhythm Biatrial enlargement Cannot rule out Anterior infarct, age undetermined Abnormal ECG
== END 2017-12-16 05:15 | disposition home or self-care (01) ==
LOC: H.ER 02:02
DX: R51 Headache (principal); J98.01 Acute bronchospasm; E11.9 Type 2 diabetes mellitus without complications; F17.200 Nicotine dependence, unspecified, uncomplicated; J45.909 Unspecified asthma, uncomplicated; Z59.0 Homelessness; Z79.84 Long term (current) use of oral hypoglycemic drugs

== ENCOUNTER 2017-12-24 00:46 | Emergency (ER) | payer MEDICAID ==
[2017-12-24 00:46] VITALS: BMI 39.4
[2017-12-24 01:34] VITALS: TEMP 97.1
--- NOTE | 2017-12-24 02:46 | ED PDOC ---
HPI: General Adult Time Seen by Provider: 12/24/17 02:16 Chief Complaint (Nursing): Dizziness/Lightheaded Chief Complaint (Provider): Dizziness History Per: Patient History/Exam Limitations: no limitations Onset/Duration Of Symptoms: Persistent Have you had recent travel within the past 21 days to any of the following countries: [place], [place], [place] or [place]?: No Current Symptoms Are (Timing): Still Present Recently: Seen In ED Additional Complaint(s): 37 year old female presents to ED with complaints of persistent dizziness and has a history of HTN, diabetes mellitus, and bed-seeking behavior. Patient is well known to ED and provider for multiple visits and homelessness. (-) nausea, vomiting, fever, headache, cough, SOB, or chest pain. PCP: [facility] [place] Past Medical History Reviewed: Historical Data, Nursing Documentation, Vital Signs Vital Signs: Last Vital Signs Temp 97.1 F L 12/24/17 01:32 Pulse 87 12/24/17 05:25 Resp 18 12/24/17 05:25 BP 151/85 H 12/24/17 05:25 Pulse Ox 98 12/24/17 05:25 - Medical History PMH: Asthma, Diabetes, Fractures (foot fracture), Gastritis, HTN, Pneumonia Denies: HIV, Hyperthyroidism, Migraine, Chronic Kidney Disease - Surgical History Surgical History: No Surg Hx - Family History Family History: States: Unknown Family Hx - Living Arrangements Living Arrangements: Other (Homeless) - Social History Current smoker - smoking cessation education provided: No Ex-Smoker (has not smoked in the last 12 months): No Alcohol: None Drugs: Denies - Home Medications Home Medications: Ambulatory Orders Medication Instructions Recorded Cholecalciferol [Vitamin D 1000 IU] 1 tab PO QWK 10/17/17 Levofloxacin [Levaquin] 500 mg PO DAILY #3 tablet 10/20/17 MetFORMIN [glucoPHAGE] 500 mg PO BID #60 tab 10/20/17 NIFEdipine ER [Procardia XL] 30 mg PO DAILY #30 ter 10/20/17 cloNIDine [Catapres] 0.1 mg PO Q12H #60 tab 10/20/17 Ibuprofen [Motrin Tab] 1 tab PO QID #40 tab 10/28/17 Amoxicillin/Clavulanate [Augmentin 1 tab PO BID #14 tab 11/13/17 875 MG-125 MG] Naproxen [Naprosyn] 500 mg PO BID PRN #10 tab 11/18/17 Amoxicillin 875 mg PO BID #10 tablet 11/21/17 Albuterol HFA [Ventolin HFA 90 1 puff IH Q4 PRN #1 inh 12/11/17 mcg/actuation (8 g)] predniSONE [Prednisone] 60 mg PO DAILY #12 tab 12/11/17 - Allergies Allergies/Adverse Reactions: Allergies Allergy/AdvReac Type Severity Reaction Status Date / Time Seafood Allergy SHORTNESS Uncoded 11/13/17 19:59 OF BREATH Review of Systems ROS Statement: Except As Marked, All Systems Reviewed And Found Negative Constitutional: Negative for: Fever Cardiovascular: Negative for: Chest Pain Respiratory: Negative for: Cough, Shortness of Breath Gastrointestinal: Negative for: Nausea, Vomiting Neurological: Positive for: Dizziness. Negative for: Headache Physical Exam - Reviewed Nursing Documentation Reviewed: Yes Vital Signs Reviewed: Yes - Physical Exam Appears: Positive for: Non-toxic, No Acute Distress Head Exam: Positive for: ATRAUMATIC, NORMAL INSPECTION, NORMOCEPHALIC Skin: Positive for: Normal Color, Warm, Dry Eye Exam: Positive for: Normal appearance Neck: Positive for: Normal Cardiovascular/Chest: Positive for: Regular Rate, Rhythm. Negative for: Murmur Respiratory: Positive for: Normal Breath Sounds. Negative for: Respiratory Distress Gastrointestinal/Abdominal: Positive for: Normal Exam, Soft. Negative for: Tenderness Extremity: Positive for: Normal ROM. Negative for: Deformity Neurologic/Psych: Positive for: Alert, network control technician II-XII (intact), Oriented, Cerebellar Tests (intact), Gait (steady). Negative for: Motor/Sensory Deficits - ECG ECG: Positive for: Interpreted By Me, Viewed By Me ECG Rhythm: Positive for: Sinus Rhythm Rate: 89 (04:18 12/24/17) O2 Sat by Pulse Oximetry: 97 (RA) Pulse Ox Interpretation: Normal Medical Decision Making Medical Decision Makin Initial impression: 37 year old female with non-specific dizziness Initial plan: * EKG * Accucheck 0500 Accucheck: 107 Patient notes improvement in symptoms and is stable for discharge home. Dx: dizziness Scribe Attestation: Documented by Renay Yoder acting as a scribe for Los Barron MD. Scribe Attestation: All medical record entries made by the Scribe were at my direction and personally dictated by me. I have reviewed the chart and agree that the record accurately reflects my personal performance of the history, physical exam, medical decision making, and the department course for this patient. I have also personally directed, reviewed, and agree with the discharge instructions and disposition. Disposition - Clinical Impression Clinical Impression: Dizzy spells - Patient ED Disposition Is Patient to be Admitted: No - Disposition Disposition: Routine/Home Disposition Time: 05:00 Condition: IMPROVED Forms: [facility] (Niuean)
[2017-12-24 05:26] VITALS: BP 151/85; RESP 18
--- NOTE | 2017-12-24 10:03 | CARD ---
APPROVED REPORT EKG Measurement Heart [id number] <Conclusion> Normal sinus rhythm Biatrial enlargement Abnormal ECG
[2017-12-24 23:59] VITALS: PULSE 89; O2SAT 97
== END 2017-12-24 05:26 | disposition home or self-care (01) ==
LOC: H.ER 00:46
DX: R42 Dizziness and giddiness (principal); E11.9 Type 2 diabetes mellitus without complications; I11.9 Hypertensive heart disease without heart failure; J45.909 Unspecified asthma, uncomplicated; Z59.0 Homelessness; Z79.84 Long term (current) use of oral hypoglycemic drugs; Z87.891 Personal history of nicotine dependence

== ENCOUNTER 2017-12-26 05:08 | Emergency (ER) | payer MEDICAID ==
[2017-12-26 05:22] VITALS: BMI 37.3
--- NOTE | 2017-12-26 06:25 | ED PDOC ---
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 Patient has been seen here for similar symptoms in the past, but is not sure if this time it is due to elevated blood pressure. Upon entering the room, the patient was asleep comfortably. Denies chest pain, shortness of breath, and fever. PMD: none provided Past Medical History Reviewed: Historical Data, Nursing Documentation, Vital Signs Vital Signs: Last Vital Signs Temp 97.1 F L 12/26/17 09:30 Pulse 95 H 12/26/17 09:30 Resp 17 12/26/17 09:30 BP 146/63 12/26/17 09:30 Pulse Ox 98 12/28/17 10:04 - Medical History PMH: Asthma, Diabetes, Fractures (foot fracture), Gastritis, HTN, Pneumonia Denies: HIV, Hyperthyroidism, Migraine, Chronic Kidney Disease - Surgical History Surgical History: No Surg Hx - Family History Family History: States: Unknown Family Hx - Home Medications Home Medications: Ambulatory Orders Medication Instructions Recorded Cholecalciferol [Vitamin D 1000 IU] 1 tab PO QWK 10/17/17 Levofloxacin [Levaquin] 500 mg PO DAILY #3 tablet 10/20/17 MetFORMIN [glucoPHAGE] 500 mg PO BID #60 tab 10/20/17 NIFEdipine ER [Procardia XL] 30 mg PO DAILY #30 ter 10/20/17 cloNIDine [Catapres] 0.1 mg PO Q12H #60 tab 10/20/17 Ibuprofen [Motrin Tab] 1 tab PO QID #40 tab 10/28/17 Amoxicillin/Clavulanate [Augmentin 1 tab PO BID #14 tab 11/13/17 875 MG-125 MG] Naproxen [Naprosyn] 500 mg PO BID PRN #10 tab 11/18/17 Amoxicillin 875 mg PO BID #10 tablet 11/21/17 Albuterol HFA [Ventolin HFA 90 1 puff IH Q4 PRN #1 inh 12/11/17 mcg/actuation (8 g)] predniSONE [Prednisone] 60 mg PO DAILY #12 tab 12/11/17 - Allergies Allergies/Adverse Reactions: Allergies Allergy/AdvReac Type Severity Reaction Status Date / Time Seafood Allergy SHORTNESS Uncoded 12/26/17 05:22 OF BREATH Review of Systems ROS Statement: Except As Marked, All Systems Reviewed And Found Negative Constitutional: Negative for: Fever Cardiovascular: Negative for: Chest Pain Respiratory: Negative for: Shortness of Breath Neurological: Positive for: Dizziness Physical Exam - Reviewed Nursing Documentation Reviewed: Yes Vital Signs Reviewed: Yes - Physical Exam Appears: Positive for: No Acute Distress (sleeping upon entering the room) Head Exam: Positive for: ATRAUMATIC, NORMOCEPHALIC Skin: Positive for: Normal Color, Warm, Dry Neck: Positive for: Normal, Painless ROM, Supple Cardiovascular/Chest: Positive for: Regular Rate, Rhythm. Negative for: Murmur Respiratory: Positive for: Normal Breath Sounds. Negative for: Accessory Muscle Use, Wheezing, Respiratory Distress Gastrointestinal/Abdominal: Positive for: Normal Exam, Soft. Negative for: Tenderness Back: Positive for: Normal Inspection. Negative for: L CVA Tenderness, R CVA Tenderness, Vertebral Tenderness Extremity: Positive for: Normal ROM Neurologic/Psych: Positive for: Alert, Oriented (x3). Negative for: Motor/ Sensory Deficits - Laboratory Results Result Diagrams: 12/26/17 07:45 12/26/17 07:45 - ECG O2 Sat by Pulse Oximetry: 98 (RA) Pulse Ox Interpretation: Normal Medical Decision Making Medical Decision Making: Initial Impression: dizziness, hypertension Time: 6:16 Initial Plan: --EKG --Catapres 0.1mg PO 06:56 After the Catapres, blood pressure is still elevated. Blood work will be ordered and she will be given Labetelol. Scribe Attestation: Documented by Debbie Lai, acting as a scribe for Bo Olvera MD. Provider Scribe Attestation: All medical entries made by the Scribe were at my direction and personally dictated by me. I have reviewed the chart and agree that the record accurately reflects my personal performance of the history, physical exam, medical decision making, and the department course for this patient. I have also personally directed, reviewed, and agree with the discharge instructions and disposition. Disposition - Clinical Impression Clinical Impression: Dizziness, Hypertension - Patient ED Disposition Is Patient to be Admitted: Transfer of Care Counseled Patient/Family Regarding: Studies Performed, Diagnosis, Need For Followup - Disposition Referrals: Lei Waddell MD [Primary Care Provider] - Disposition: Routine/Home Disposition Time: 07:00 Condition: IMPROVED Additional Instructions: TAKE YOUR MEDICATIONS PRESCRIBED! Instructions: High Blood Pressure in Adults, Dizziness, Nonvertigo, (DC) Forms: [employer] (Korean) Patient Signed Over To: Bella Sotelo
[2017-12-26] MEDS ORDERED: Labetalol 5 mg/ml Inj 20ML IVP STA (06:54)
--- NOTE | 2017-12-26 07:02 | ED PDOC ---
- Laboratory Results Result Diagrams: 12/26/17 07:45 12/26/17 07:45 - ECG O2 Sat by Pulse Oximetry: 98 (RA) Medical Decision Making Medical Decision Makin:00 Patient endorsed to me by Dr. Olvera pending labs. Scribe Attestation: Documented by Ralph Huynh, acting as a scribe for Bella Sotelo MD. Provider Scribe Attestation: All medical record entries made by the Scribe were at my direction and personally dictated by me. I have reviewed the chart and agree that the record accurately reflects my personal performance of the history, physical exam, medical decision making, and the department course for this patient. I have also personally directed, reviewed, and agree with the discharge instructions and disposition. Disposition - Clinical Impression Clinical Impression: Dizziness, Hypertension - POA Present On Arrival: None - Disposition Referrals: Lei Waddell MD [Primary Care Provider] - Disposition: Routine/Home Disposition Time: 08:55 Condition: IMPROVED Additional Instructions: TAKE YOUR MEDICATIONS PRESCRIBED! Instructions: High Blood Pressure in Adults, Dizziness, Nonvertigo, (DC) Forms: [facility] (Citizen Of [place])
[2017-12-26 07:54] LABS: BASO # 0.2 K/uL (0.0-0.2); BASO % 1.4 % (0.0-2.0); EOS # 0.2 K/uL (0.0-0.7); EOS % 1.7 % (0.0-4.0); HEMOGLOBIN 12.3 g/dL (12.0-16.0); LYMPH % 25.7 % (20.0-40.0); MEAN CORPUSCULAR HEMOGLOBIN 23.7 pg (27.0-31.0); MEAN CORPUSCULAR HGB CONC 31.6 g/dL (33.0-37.0); MEAN PLATELET VOLUME 9.7 fl (7.2-11.7); MONO # 0.7 K/uL (0.0-0.8); MONO % 5.8 % (0.0-10.0); NEUT # 7.5 K/uL (1.8-7.0); NEUT % 65.4 % (50.0-75.0); NRBC % 0.1 % (0.0-0.0); RBC 5.19 Mil/uL (3.80-5.20); RED CELL DISTRIBUTION WIDTH 16.2 % (11.5-14.5); WHITE BLOOD COUNT 11.5 K/uL (4.8-10.8)
[2017-12-26 08:12] LABS: ALB/GLOB RATIO 1.2 (1.0-2.1); ALBUMIN 4.1 g/dL (3.5-5.0); ALT/SGPT 25 U/L (9-52); AST/SGOT 24 U/L (14-36); BLOOD UREA NITROGEN 8 mg/dl (7-17); CALCIUM 9.1 mg/dL (8.4-10.2); GFR AFRICAN-AMERICAN > 60; GFR NON-AFRICAN AMERICAN > 60
[2017-12-26 08:23] VITALS: RESP 17
[2017-12-26 09:31] VITALS: BP 146/63; PULSE 95; TEMP 97.1
--- NOTE | 2017-12-27 11:00 | CARD ---
APPROVED REPORT EKG Measurement Heart [id number] RI 122P63 [id number] <Conclusion> Normal sinus rhythm Right atrial enlargement Borderline ECG
[2017-12-28 10:04] VITALS: O2SAT 98
== END 2017-12-26 09:30 | disposition home or self-care (01) ==
LOC: H.ER 05:08
DX: R42 Dizziness and giddiness (principal); I10 Essential (primary) hypertension; R51 Headache; E11.9 Type 2 diabetes mellitus without complications; I11.9 Hypertensive heart disease without heart failure; I51.7 Cardiomegaly; J45.909 Unspecified asthma, uncomplicated; Z79.84 Long term (current) use of oral hypoglycemic drugs

== ENCOUNTER 2018-01-15 02:56 | Emergency (ER) | payer MEDICAID ==
[2018-01-15 02:56] VITALS: BMI 37.3
[2018-01-15 03:26] VITALS: TEMP 98; O2SAT 98
--- NOTE | 2018-01-15 04:06 | ED PDOC ---
HPI: General Adult Time Seen by Provider: 01/15/18 03:00 Chief Complaint (Nursing): Dizziness/Lightheaded Chief Complaint (Provider): dizziness History Per: Patient History/Exam Limitations: no limitations Onset/Duration Of Symptoms: Hrs Additional Complaint(s): Chey Reyes is a 37 year old female, with a past medical history of HTN and diabetes, who presents to the emergency department complaining of dizziness onset today. Patient is un domicile and has been seen in the ED many times for similar complaints. She denies any fever, chills or any other physical complaints. every time i walk into the room pt is sleeping comfortably in no distress with patent airway and comfortable PMD: None provided. Past Medical History Reviewed: Historical Data, Nursing Documentation, Vital Signs Vital Signs: Last Vital Signs Temp 98.0 F 01/15/18 03:22 Pulse 86 01/15/18 06:29 Resp 15 01/15/18 06:29 BP 164/97 H 01/15/18 06:29 Pulse Ox 98 01/16/18 05:28 - Medical History PMH: Asthma, Diabetes, Fractures (foot fracture), Gastritis, HTN, Pneumonia Denies: HIV, Hyperthyroidism, Migraine, Chronic Kidney Disease - Surgical History Surgical History: No Surg Hx - Family History Family History: States: Unknown Family Hx - Social History Current smoker - smoking cessation education provided: No Drugs: Denies - Home Medications Home Medications: Ambulatory Orders Medication Instructions Recorded Cholecalciferol [Vitamin D 1000 IU] 1 tab PO QWK 10/17/17 Levofloxacin [Levaquin] 500 mg PO DAILY #3 tablet 10/20/17 MetFORMIN [glucoPHAGE] 500 mg PO BID #60 tab 10/20/17 NIFEdipine ER [Procardia XL] 30 mg PO DAILY #30 ter 10/20/17 cloNIDine [Catapres] 0.1 mg PO Q12H #60 tab 10/20/17 Ibuprofen [Motrin Tab] 1 tab PO QID #40 tab 10/28/17 Amoxicillin/Clavulanate [Augmentin 1 tab PO BID #14 tab 11/13/17 875 MG-125 MG] Naproxen [Naprosyn] 500 mg PO BID PRN #10 tab 11/18/17 Amoxicillin 875 mg PO BID #10 tablet 11/21/17 Albuterol HFA [Ventolin HFA 90 1 puff IH Q4 PRN #1 inh 12/11/17 mcg/actuation (8 g)] predniSONE [Prednisone] 60 mg PO DAILY #12 tab 12/11/17 - Allergies Allergies/Adverse Reactions: Allergies Allergy/AdvReac Type Severity Reaction Status Date / Time Seafood Allergy SHORTNESS Uncoded 12/26/17 05:22 OF BREATH Review of Systems ROS Statement: Except As Marked, All Systems Reviewed And Found Negative Constitutional: Negative for: Fever, Chills Neurological: Positive for: Dizziness Physical Exam - Reviewed Nursing Documentation Reviewed: Yes Vital Signs Reviewed: Yes - Physical Exam Appears: Positive for: Non-toxic, No Acute Distress Head Exam: Positive for: ATRAUMATIC, NORMAL INSPECTION, NORMOCEPHALIC Skin: Positive for: Normal Color, Warm, Dry Eye Exam: Positive for: Normal appearance, EOMI, PERRL Neck: Positive for: Painless ROM, Supple Cardiovascular/Chest: Positive for: Regular Rate, Rhythm. Negative for: Murmur Respiratory: Positive for: Normal Breath Sounds. Negative for: Respiratory Distress Gastrointestinal/Abdominal: Positive for: Normal Exam, Soft. Negative for: Tenderness Back: Positive for: Normal Inspection. Negative for: L CVA Tenderness, R CVA Tenderness, Vertebral Tenderness Extremity: Positive for: Normal ROM (upper and lower extremities). Negative for : Deformity, Swelling Neurologic/Psych: Positive for: Alert, Oriented - ECG O2 Sat by Pulse Oximetry: 98 (RA) Pulse Ox Interpretation: Normal Medical Decision Making Medical Decision Making: Time: 03:23 Initial Impression: dizziness Initial Plan: --Reevaluation - pt sleeping comfortably. when i wake her up she said that her symptoms are gone. labs reviewed. 05:05 -Patient reports feeling better. instrcuted her on importance to follow up. Upon provider reevaluation patient is feeling better, is medically stable, and requires no further treatment in the ED at this time. Patient will be discharged home. Counseling was provided and all questions were answered regarding diagnosis and need for follow up with PMD. There is agreement to discharge plan. Return if symptoms persist or worsen. ----- Scribe Attestation: Documented by Shahram Kaba, acting as a scribe for Bo Olvera MD. Provider Scribe Attestation: All medical record entries made by the Scribe were at my direction and personally dictated by me. I have reviewed the chart and agree that the record accurately reflects my personal performance of the history, physical exam, medical decision making, and the department course for this patient. I have also personally directed, reviewed, and agree with the discharge instructions and disposition. Disposition - Clinical Impression Clinical Impression: Hypertension - Patient ED Disposition Is Patient to be Admitted: No Counseled Patient/Family Regarding: Studies Performed, Diagnosis, Need For Followup - Disposition Disposition: Routine/Home Disposition Time: 05:05 Condition: IMPROVED Additional Instructions: [facility]2 days return to the ED with any worsening or concerning symptoms take your medicines Instructions: High Blood Pressure (DC) Forms: [employer] ([employer]) (Yi)
[2018-01-15] MEDS ORDERED: Labetalol 5 mg/ml Inj 20ML IVP STA (05:34)
[2018-01-15 06:30] VITALS: BP 164/97; PULSE 86; RESP 15
--- NOTE | 2018-01-16 08:37 | CARD ---
APPROVED REPORT EKG Measurement Heart [id number] <Conclusion> Normal sinus rhythm Biatrial enlargement Nonspecific T wave abnormality Suggestive of left ventricular hypertrophy Abnormal ECG
== END 2018-01-15 06:30 | disposition home or self-care (01) ==
LOC: H.ER 02:56
DX: I10 Essential (primary) hypertension (principal); E11.9 Type 2 diabetes mellitus without complications; I11.9 Hypertensive heart disease without heart failure; I51.7 Cardiomegaly; Z79.84 Long term (current) use of oral hypoglycemic drugs

== ENCOUNTER 2018-04-26 03:26 | Emergency (ER) | payer SELFPAY ==
[2018-04-26 03:26] VITALS: BMI 37.3
[2018-04-26 04:39] VITALS: RESP 18; TEMP 98.2; O2SAT 98
[2018-04-26 05:12] VITALS: BP 180/89
--- NOTE | 2018-04-26 05:59 | ED PDOC ---
Lower Extremity Pain/Injury Time Seen by Provider: 04/26/18 05:01 Chief Complaint (Nursing): Lower Extremity Problem/Injury Chief Complaint (Provider): Lower Extremity Problem/Injury History Per: Patient History/Exam Limitations: no limitations Current Symptoms Are (Timing): Still Present Additional Complaint(s): 37 year old female with a history of htn presents to the ED with chronic right l eg pain. Patient denies any injury and ambulated into room by herself. She was asleep during the initial exam. Patient has been seen in this ED for similar symptoms. At this time, she denies any other complaints. She is compliant with her htn medications. PMD: [place] Past Medical History Reviewed: Historical Data, Nursing Documentation, Vital Signs Vital Signs: Last Vital Signs Temp 98.2 F 04/26/18 03:50 Pulse 94 H 04/26/18 05:11 Resp 18 04/26/18 05:11 BP 180/89 H 04/26/18 05:11 Pulse Ox 98 04/26/18 03:50 - Medical History PMH: Asthma, Diabetes, Fractures (foot fracture), Gastritis, HTN, Pneumonia Denies: HIV, Hyperthyroidism, Migraine, Chronic Kidney Disease - Surgical History Surgical History: No Surg Hx - Family History Family History: States: Unknown Family Hx - Home Medications Home Medications: Ambulatory Orders Medication Instructions Recorded RX: Cholecalciferol [Vitamin D 1 tab PO QWK 10/17/17 1000 IU] Levofloxacin [Levaquin] 500 mg PO DAILY #3 tablet 10/20/17 RX: MetFORMIN [glucoPHAGE] 500 mg PO BID #60 tab 10/20/17 RX: NIFEdipine ER [Procardia XL] 30 mg PO DAILY #30 ter 10/20/17 RX: cloNIDine [Catapres] 0.1 mg PO Q12H #60 tab 10/20/17 RX: Ibuprofen [Motrin Tab] 1 tab PO QID #40 tab 10/28/17 Amoxicillin/Clavulanate [Augmentin 1 tab PO BID #14 tab 11/13/17 875 MG-125 MG] RX: Naproxen [Naprosyn] 500 mg PO BID PRN #10 tab 11/18/17 RX: Amoxicillin 875 mg PO BID #10 tablet 11/21/17 RX: Albuterol HFA [Ventolin HFA 90 1 puff IH Q4 PRN #1 inh 12/11/17 mcg/actuation (8 g)] predniSONE [Prednisone] 60 mg PO DAILY #12 tab 12/11/17 - Allergies Allergies/Adverse Reactions: Allergies Allergy/AdvReac Type Severity Reaction Status Date / Time Seafood Allergy SHORTNESS Uncoded 04/26/18 04:34 OF BREATH Review of Systems ROS Statement: Except As Marked, All Systems Reviewed And Found Negative Musculoskeletal: Positive for: Leg Pain (right) Physical Exam - Reviewed Nursing Documentation Reviewed: Yes Vital Signs Reviewed: Yes - Physical Exam Appears: Positive for: No Acute Distress (comfortable and sleepy) Head Exam: Positive for: ATRAUMATIC Skin: Positive for: Normal Color, Warm, Dry Eye Exam: Positive for: Normal appearance, EOMI, PERRL Cardiovascular/Chest: Positive for: Regular Rate, Rhythm. Negative for: Murmur Respiratory: Positive for: Normal Breath Sounds. Negative for: Respiratory Distress Extremity: Positive for: Other (no other signs of injury). Negative for: Pedal Edema, Deformity, Swelling Neurologic/Psych: Positive for: Alert, Oriented, Gait (steady when ambulating) - ECG O2 Sat by Pulse Oximetry: 98 (RA) Pulse Ox Interpretation: Normal Medical Decision Making Medical Decision Making: Time: 514 Initial Impression: Chronic leg pain without injury and chronic htn --Patient slept in emergency room. Her symptoms significantly improved after sleep and she agreed to discharge home. Scribe Attestation: Documented by Margie Ramirez, acting as a scribe for Mala Matthew MD Provider Scribe Attestation: All medical record entries made by the Scribe were at my direction and personally dictated by me. I have reviewed the chart and agree that the record accurately reflects my personal performance of the history, physical exam, medical decision making, and the department course for this patient. I have also personally directed, reviewed, and agree with the discharge instructions and disposition. Disposition - Clinical Impression Clinical Impression: Right foot pain, Hypertension - Patient ED Disposition Is Patient to be Admitted: No Doctor Will See Patient In The: Office Counseled Patient/Family Regarding: Studies Performed, Diagnosis, Need For Followup - Disposition Referrals: Lei Waddell MD [Staff Provider] - Disposition: Routine/Home Disposition Time: 05:00 Condition: GOOD Instructions: High Blood Pressure in Adults
[2018-04-26 07:07] VITALS: PULSE 89
== END 2018-04-26 07:05 | disposition home or self-care (01) ==
LOC: H.ER 03:26
DX: M79.671 Pain in right foot (principal); I10 Essential (primary) hypertension; F17.210 Nicotine dependence, cigarettes, uncomplicated